=== PATIENT | male | born 1995 ===

== ENCOUNTER 2019-11-24 08:46 | Inpatient (IN) | payer OTHER ==
[2019-11-24] MEDS ORDERED: Boostrix 0.5 ML (Tdap) VIAL ONE (08:49)
[2019-11-24] MEDS ORDERED: Calcium Chloride 1 GM/10 ML Abboject SYRINGE ONE ×7 (08:54→18:21)
[2019-11-24] MEDS ORDERED: Sodium Bicarb 50 MEQ/50 ML Abboject 8.4% SYRINGE ONE ×3 (08:59→09:09)
[2019-11-24] MEDS ORDERED: EPINEPHrine 1 MG/10 ML Abboject SYRINGE ONE (09:09)
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
[2019-11-24 09:11] LABS: Hemoglobin 10.4 g/dL (14.0-18.0); Mean Corpuscular HGB CONC 32.9 g/dL (32.0-36.0); Mean Corpuscular Volume 94.3 fL (78.0-98.0); Mean Platelet Volume 7.1 fL (7.4-10.4); Platelet Count 227 thou/uL (130-400); RBC Distribution Width 11.8 % (11.5-14.5); Red Blood Cell (RBC) Count 3.34 mill/uL (4.70-6.10); White Blood Cell (WBC) Count 25.8 thou/uL (4.8-10.8)
[2019-11-24] MEDS ORDERED: Midazolam HCl 5 mg/5 ml Vial ONE (09:14)
[2019-11-24] MEDS ORDERED: Fentanyl 250 MCG/5 ML VIAL ONE (09:14)
[2019-11-24] MEDS ORDERED: Tranexamic Acid 1,000 MG/10 ML VIAL ONE (09:15)
[2019-11-24] MEDS ORDERED: Phenylephrine 10 MG/ML VIAL ONE ×2 (09:15→11:50)
[2019-11-24 09:18] LABS: INR-International Normal Ratio 1.8; Prothrombin Time 20.9 sec (12.0-14.7)
[2019-11-24] MEDS ORDERED: Heparin 10,000 UNITS/ 10 ML VIAL ONE ×2 (09:19→11:46)
[2019-11-24 09:21] LABS: ALT (SGPT) 375 U/L (8-55); AST (SGOT) 301 U/L (5-34); Albumin 2.9 g/dL (3.5-5.0); Alkaline Phosphatase 51 U/L (40-110); Anion Gap 16 mmol/L (10-20); BUN (Urea Nitrogen) 19 mg/dL (8.9-20.6); Bilirubin, Total 0.3 mg/dL (0.2-1.2); Calc. Creatinine Clearance 0 mL/min (70-130); Calcium 6.8 mg/dL (7.8-10.44); Carbon Dioxide 20 mmol/L (22-29); Chloride 108 mmol/L (98-107); Estimated GFR-MDRD 49; Globulin 1.6 g/dL (2.4-3.5); Glucose 255 mg/dL (70-105); Potassium 3.9 mmol/L (3.5-5.1); Protein, Total 4.5 g/dL (6.0-8.3); Sodium 140 mmol/L (136-145)
[2019-11-24 09:32] LABS: Band 25 % (5-11); Eosinophils 1 % (0-10); Lymphocytes 19 % (21-51); MDiff Complete? YES; Monocytes 3 % (0-10); Myelocyte 1 % (0-0); Neutrophil 51 % (42-75); Platelet Morphology Comment Appears Adequate; Polychromasia SLIGHT = 2-3 cells (100X) (0-2/hpf)
[2019-11-24 09:35] LABS: Actual Bicarbonate (HCO3a) 25.2 mEq/L (22-28); Analyzer IN Cardio ER; Base Excess (BEa) -5.2 mEq/L (-2.0 to +3.0); Calcium, Ionized (arterial) 1.18 mmol/L (1.12-1.30); Carboxyhemoglobin (COHb) 0.2 gm% (0.0-3.0); Potassium - ABG Lab 4.39 mmol/L (3.70-5.30)
[2019-11-24 09:36] LABS: CO2 Tension 79.6 mmHg (35.0-45.0); Puncture Site ALINE; pH, Arterial 7.12 (7.35-7.45)
[2019-11-24 09:37] LABS: CKMB 12.7 ng/mL (0-6.6)
--- NOTE | 2019-11-24 09:41 | RAD ---
FRONTAL RADIOGRAPH CHEST: Date: 11/24/2019 COMPARISON: None. HISTORY: Trauma. FINDINGS: Supine imaging is provided, limiting detailed assessment for pleural fluid and pneumothorax. There is a left lateral chest tube extending into the region of the left lung apex with a small apica l pneumothorax seen on the left. There is abnormal gas lucency overlying the neck on the right inferiorly suggesting subcutaneous gas. There is abnormal gas lucency overlying the right lung base which could signify loculated pneumothor ax, subcutaneous emphysema, and/or extensive soft tissue laceration. There is significant subcutaneou s gas within the right chest wall laterally. Small volume subcutaneous gas overlies the left chest wa ll. There is a right-sided chest tube in place, the side port overlying the margin of the hemithorax. The re is a second small caliber catheter overlying the midline right hemithorax laterally. There is exte nsive opacity within the right lung which is a nonspecific finding, likely on the basis of extensive contusion. Probable hydropneumothorax noted on the right. There is a displaced posterolateral right f ifth rib fracture. There is an endotracheal tube in place. IMPRESSION: Bilateral chest tubes with small apical pneumothorax on the left and probable hydropneumothorax on th e right. Extensive opacity of the right hemithorax which may signify extensive contusion or vascular injury. Subcutaneous gas, laceration, and/or loculated pneumothorax in right lung base. Chest CT advi sed. POS: ESTER
[2019-11-24] MEDS ORDERED: Tranexamic Acid 1,000 MG/10 ML VIAL IVP SCH (10:00)
[2019-11-24] MEDS ORDERED: Dextrose 5% in Water 1,000 ML IV PRN ×3 (10:05→10:21)
[2019-11-24] MEDS ORDERED: Dextrose 50% Abboject 50 ML SYRINGE SLOW IVP PRN ×3 (10:05→10:21)
[2019-11-24] MEDS ORDERED: Insulin Regular 300 UNITS/3 ML VIAL SC PRN (10:09)
[2019-11-24] MEDS ORDERED: Lactated Ringer's 1,000 ML IV SCH ×2 (10:15→21:00)
[2019-11-24] MEDS ORDERED: Sodium Bicarb 50 MEQ/50 ML VIAL ONE ×2 (10:44→12:14)
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
[2019-11-24 11:27] LABS: #Eosinphils 0.1 thou/uL (0.0-0.7); #Lymphocytes 1.4 thou/uL (1.20-3.40); #Monocytes 0.3 thou/uL (0.11-0.59); #Neutrophils 7.5 thou/uL (1.40-6.50); %Basophils 0.1 % (0.0-1.0); %Eosinophils 0.7 % (0.0-10.0); %Lymphocytes 15.2 % (21.0-51.0); %Monocytes 3.3 % (0.0-10.0); %Neutrophils 80.7 % (42.0-75.0); Hemoglobin 10.6 g/dL (14.0-18.0); Mean Corpuscular HGB CONC 33.1 g/dL (32.0-36.0); Mean Corpuscular Hemoglobin 30.9 pg (27.0-31.0); Mean Corpuscular Volume 93.4 fL (78.0-98.0); Mean Platelet Volume 6.8 fL (7.4-10.4); Platelet Count 81 thou/uL (130-400); RBC Distribution Width 13.1 % (11.5-14.5); Red Blood Cell (RBC) Count 3.42 mill/uL (4.70-6.10); White Blood Cell (WBC) Count 9.3 thou/uL (4.8-10.8)
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
[2019-11-24 11:31] LABS: INR-International Normal Ratio 1.3; Prothrombin Time 16.2 sec (12.0-14.7)
[2019-11-24] MEDS ORDERED: Heparin 1,000 UNITS/ML VIAL ONE (11:31)
[2019-11-24 11:32] LABS: PTT 40.1 sec (22.9-36.1)
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
[2019-11-24] MEDS ORDERED: Neomycin-Polymyxin 1 ML AMP ONE ×2 (12:41→13:48)
[2019-11-24] MEDS ORDERED: Rocuronium Bromide 50 MG/5 ML VIAL ONE (13:13)
[2019-11-24] MEDS ORDERED: Vecuronium 10 MG VIAL ONE ×3 (13:19→15:29)
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
[2019-11-24] MEDS ORDERED: EPHEDRINE 25 MG/5 ML SYRINGE ONE (14:05)
[2019-11-24] MEDS ORDERED: PHENYLEPHRINE-NS 100 MCG/ML 10 ML SYRINGE ONE (14:05)
--- NOTE | 2019-11-24 14:39 | RAD ---
EXAM: XR Femur Rt 2 View STANDARD DATE: 11/24/2019 1:10 PM INDICATION: External fixator placement of the right femur COMPARISON: Prior exam dated 11/24/2019 10:22 AM FINDING: Provided images demonstrate external fixer pin placement involving the shaft of the right f emur. Fracture alignment is near anatomic. Total fluoroscopic time was 12 seconds. 2 total fluoroscopic spot images were submitted of the right femur IMPRESSION:External fixer placement of fixating the patient's midshaft right femur fracture
[2019-11-24] MEDS ORDERED: Albumin 5% 250 ML ONE ×2 (15:01→21:36)
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
[2019-11-24 15:26] LABS: Actual Bicarbonate (HCO3a) 27.4 mEq/L (22-28); Analyzer IN Cardio ER; Base Excess (BEa) -1.9 mEq/L (-2.0 to +3.0); Calcium, Ionized (arterial) 1.24 mmol/L (1.12-1.30); Carboxyhemoglobin (COHb) 0.2 gm% (0.0-3.0); Hemoglobin (Hb) 12.2 g/dL (14.0-18.0); Potassium - ABG Lab 3.57 mmol/L (3.70-5.30)
[2019-11-24 15:27] LABS: CO2 Tension 71.1 mmHg (35.0-45.0); O2 Tension (PaO2), arterial 35.8 mmHg (80.0-100.0)
[2019-11-24 15:28] LABS: ALV-art Gradient 588.325 mmHg (0-20); Puncture Site FEMORAL
[2019-11-24] MEDS ORDERED: Fentanyl 100 MCG/2 ML VIAL ONE (15:28)
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
[2019-11-24 15:41] LABS: #Lymphocytes 1.2 thou/uL (1.20-3.40); #Monocytes 0.5 thou/uL (0.11-0.59); #Neutrophils 3.4 thou/uL (1.40-6.50); %Basophils 0.3 % (0.0-1.0); %Eosinophils 0.7 % (0.0-10.0); %Lymphocytes 22.8 % (21.0-51.0); %Monocytes 10.6 % (0.0-10.0); %Neutrophils 65.6 % (42.0-75.0); Hemoglobin 10.2 g/dL (14.0-18.0); Mean Corpuscular HGB CONC 34.7 g/dL (32.0-36.0); Mean Corpuscular Hemoglobin 31.3 pg (27.0-31.0); Mean Corpuscular Volume 90.4 fL (78.0-98.0); Mean Platelet Volume 7.9 fL (7.4-10.4); Platelet Count 93 thou/uL (130-400); RBC Distribution Width 13.3 % (11.5-14.5); Red Blood Cell (RBC) Count 3.24 mill/uL (4.70-6.10); White Blood Cell (WBC) Count 5.1 thou/uL (4.8-10.8)
[2019-11-24 15:43] LABS: INR-International Normal Ratio 1.5; PTT 33.2 sec (22.9-36.1); Prothrombin Time 17.6 sec (12.0-14.7)
[2019-11-24] MEDS ORDERED: Fentanyl 100 MCG/2 ML VIAL SLOW IVP SCH (15:45)
[2019-11-24] MEDS ORDERED: Vecuronium 10 MG VIAL IV SCH (15:45)
[2019-11-24] MEDS ORDERED: Fentanyl BOLUS 250 ML IVPB PRN (15:45)
[2019-11-24] MEDS ORDERED: DISCONTINUE PREVIOUS NARCOTIC PAIN MEDICATIONS AND BENZODIAZEPINES FS SCH (15:45)
[2019-11-24] MEDS ORDERED: Propofol 1,000 MG/100 ML VIAL IV PRN (15:45)
[2019-11-24] MEDS ORDERED: Propofol BOLUS 1,000 MG/100 ML VIAL IV PRN (15:45)
[2019-11-24] MEDS ORDERED: Morphine 2 MG/ML VIAL SLOW IVP PRN (15:45)
[2019-11-24 16:06] LABS: Anion Gap 16 mmol/L (10-20); BUN (Urea Nitrogen) 18 mg/dL (8.9-20.6); Calc. Creatinine Clearance 0 mL/min (70-130); Calcium 8.3 mg/dL (7.8-10.44); Carbon Dioxide 25 mmol/L (22-29); Chloride 109 mmol/L (98-107); Estimated GFR-MDRD 63; Glucose 121 mg/dL (70-105); Lactic Acid 6.2 mmol/L (0.5-2.2); Magnesium 1.6 mg/dL (1.6-2.6); Phosphorus 5.9 mg/dL (2.3-4.7); Potassium 3.4 mmol/L (3.5-5.1); Sodium 147 mmol/L (136-145)
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
[2019-11-24 16:36] LABS: Actual Bicarbonate (HCO3a) 25.8 mEq/L (22-28); Base Excess (BEa) -2.5 mEq/L (-2.0 to +3.0); Calcium, Ionized (arterial) 1.19 mmol/L (1.12-1.30); Carboxyhemoglobin (COHb) 0.7 gm% (0.0-3.0); Hemoglobin (Hb) 11.3 g/dL (14.0-18.0); Potassium - ABG Lab 3.92 mmol/L (3.70-5.30)
[2019-11-24 16:46] LABS: CO2 Tension 62.9 mmHg (35.0-45.0); O2 Tension (PaO2), arterial 53.3 mmHg (80.0-100.0); pH, Arterial 7.23 (7.35-7.45)
[2019-11-24 16:48] LABS: Puncture Site ALINE
[2019-11-24 16:49] LABS: ALV-art Gradient 581.075 mmHg (0-20)
[2019-11-24] MEDS ORDERED: ceFAZolin 1 GM/D5W 1 GM in Premix Bag 1 BAG IVPB SCH (17:00)
[2019-11-24] MEDS ORDERED: Hydrocortisone Sod Succ/PF 100 mg/2 ml Vial IVP PRN (17:06)
[2019-11-24] MEDS ORDERED: Midazolam HCl 2 mg/2 ml Vial ONE (17:16)
[2019-11-24] MEDS ORDERED: CEFAZOLIN 2 GM in Premix Bag 1 BAG IVPB SCH (17:30)
[2019-11-24 17:32] LABS: Actual Bicarbonate (HCO3a) 26.3 mEq/L (22-28); Base Excess (BEa) -2.3 mEq/L (-2.0 to +3.0); Carboxyhemoglobin (COHb) 0.5 gm% (0.0-3.0); Hemoglobin (Hb) 11.3 g/dL (14.0-18.0); Potassium - ABG Lab 3.77 mmol/L (3.70-5.30)
[2019-11-24 17:38] LABS: CO2 Tension 65.8 mmHg (35.0-45.0); O2 Tension (PaO2), arterial 49.9 mmHg (80.0-100.0); pH, Arterial 7.22 (7.35-7.45)
[2019-11-24 17:39] LABS: Puncture Site ALINE
[2019-11-24] MEDS ORDERED: Midazolam HCl 2 mg/2 ml Vial SLOW IVP SCH (17:45)
[2019-11-24] MEDS: fentaNYL Citrate/PF 2,000 MCG in Sodium Chloride 0.9% 60 ML IV SCH (17:45)
[2019-11-24 18:24] LABS: Hemoglobin 11.3 g/dL (14.0-18.0)
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
[2019-11-24 18:42] LABS: Anion Gap 17 mmol/L (10-20); BUN (Urea Nitrogen) 19 mg/dL (8.9-20.6); Calc. Creatinine Clearance 0 mL/min (70-130); Calcium 8.1 mg/dL (7.8-10.44); Carbon Dioxide 26 mmol/L (22-29); Chloride 108 mmol/L (98-107); Estimated GFR-MDRD 55; Glucose 123 mg/dL (70-105); Sodium 147 mmol/L (136-145)
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
[2019-11-24 19:54] LABS: Actual Bicarbonate (HCO3a) 30.1 mEq/L (22-28); Base Excess (BEa) -0.8 mEq/L (-2.0 to +3.0); Calcium, Ionized (arterial) 1.24 mmol/L (1.12-1.30); Carboxyhemoglobin (COHb) 0.1 gm% (0.0-3.0); Hemoglobin (Hb) 11.9 g/dL (14.0-18.0); Potassium - ABG Lab 4.67 mmol/L (3.70-5.30)
[2019-11-24 19:56] LABS: pH, Arterial 7.15 (7.35-7.45)
[2019-11-24 19:57] LABS: CO2 Tension 89.1 mmHg (35.0-45.0); O2 Tension (PaO2), arterial 47.8 mmHg (80.0-100.0)
[2019-11-24 19:58] LABS: ALV-art Gradient 553.825 mmHg (0-20); Puncture Site LINE
--- NOTE | 2019-11-24 20:00 | RAD ---
RADIOGRAPH CHEST 1 VIEW: DATE: 11/24/2019 TIME: 7:37 PM HISTORY: 24-year-old male status post acute chest trauma. Worsening hypoxemia. COMPARISON: 11/24/2019 3:49 PM FINDINGS: Again noted are the severe diffuse bilateral alveolar airspace infiltrates. These have become more de nse in regions of consolidation in the bilateral lower lung zones and left mid lung zone. Small right apical pneumothorax approximately 10-20% volume. Probably unchanged. Bilateral chest tubes, endotracheal tube, esophagogastric tube, right subclavian central venous checo ter overlying SVC, and left subclavian dialysis catheter transversely oriented distal tip overlying midline. These are unchanged. IMPRESSION: 1) interval worsening of severe bilateral airspace disease, with regions of increasing attenuation in bilateral lower lung zone consolidations. 2) right apical pneumothorax, probably stable. 3) no interval change in life support lines
[2019-11-24] MEDS ORDERED: Norepinephrine 8 MG/0.9% NS 250 ML ONE (20:02)
[2019-11-24] MEDS ORDERED: Hydrocortisone Sod Succ/PF 100 mg/2 ml Vial IVP SCH (20:15)
[2019-11-24 20:24] LABS: Hemoglobin 12.1 g/dL (14.0-18.0)
[2019-11-24 20:30] LABS: INR-International Normal Ratio 1.3; PTT 29.8 sec (22.9-36.1); Prothrombin Time 15.8 sec (12.0-14.7)
[2019-11-24 20:44] LABS: Lactic Acid 5.8 mmol/L (0.5-2.2)
[2019-11-24 20:46] LABS: Magnesium 1.4 mg/dL (1.6-2.6)
[2019-11-24] MEDS ORDERED: Furosemide 40 MG/4 ML VIAL ONE (20:59)
[2019-11-24] MEDS ORDERED: Magnesium 5 GM/10 ML Abboject SYRINGE ONE (21:09)
[2019-11-24] MEDS ORDERED: Magnesium 2 GM/50 ML 4 GM in Premix Bag 1 BAG IVPB SCH (21:15)
[2019-11-24] MEDS ORDERED: methylPREDNISolone Sod Succ/PF 125 MG/2 ML VIAL IVP SCH (21:15)
[2019-11-24] MEDS ORDERED: Albumin 25% 25 GM/100 ML BOT IVPB SCH (21:37)
--- NOTE | 2019-11-24 21:47 | CT ---
CT BRAIN NONCONTRAST: DATE: 11/24/2019 9:29 PM HISTORY: 24-year-old female with acute epidural hematoma. Follow-up. COMPARISON: 11/24/2019 3:07 PM FINDINGS: The thin broad biconvex left lateral frontotemporal extra-axial hematoma has not significantly change d in size. It causes mild mass effect upon the left cerebral hemisphere. This hematoma crosses the left coronal suture, and therefore is consistent with a subdural hematoma rather than an epidural hem atoma. The mild, approximately 2 to 3 mm left to right midline shift of the septum pellucidum is unchanged. The small focal hyperdensity at the anterior corner of the third ventricle, near the foramen of Monro , is probably a colloid cyst rather than hemorrhage. Otherwise, the ventricles are normal in size and configuration. Visualized paranasal sinuses and bilateral tympanomastoid cavities remain clear. T here are right upper scalp skin favio. There is upper scalp edema or contusion. No major interval change overall. IMPRESSION: The small left lateral frontotemporal subdural hematoma has not increased in size.
[2019-11-24 22:12] LABS: Actual Bicarbonate (HCO3a) 27.9 mEq/L (22-28); Base Excess (BEa) -4.3 mEq/L (-2.0 to +3.0); Carboxyhemoglobin (COHb) 0.9 gm% (0.0-3.0); Hemoglobin (Hb) 13.1 g/dL (14.0-18.0); Potassium - ABG Lab 4.97 mmol/L (3.70-5.30)
[2019-11-24 22:22] LABS: pH, Arterial 7.08 (7.35-7.45)
[2019-11-24 22:23] LABS: CO2 Tension 95.8 mmHg (35.0-45.0); O2 Tension (PaO2), arterial 35.8 mmHg (80.0-100.0); Puncture Site LINE
[2019-11-24] MEDS: Vasopressin 20 UNIT, Admixture Fee 1 EACH in Sodium Chloride 0.9% 50 ML IV SCH (22:23)
--- NOTE | 2019-11-24 22:30 | OP ---
DATE OF PROCEDURE: 11/24/2019 Procedure was performed approximately at 0930 hours this morning. PROCEDURE PERFORMED: Arterial catheterization. INDICATION: Hemorrhagic shock, invasive blood pressure monitoring, and frequent blood gases. Consent is implied. EMERGENT CONDITION: Implied Consent. PROCEDURE: Hand hygiene was completed. Sterile gloves were donned. The left femoral artery was palpated. This area was prepped in the usual fashion with 4% chlorhexidine, allowed to completely dry. Next, introducer needle was placed into the left femoral artery with one attempt. Guidewire was placed through the needle. The needle was then removed and a 12 cm 20-gauge single-lumen catheter was placed over the guidewire into the left femoral artery. The guidewire was then removed from the body. Pulsatile blood was noted. This was connected to the transducer wire and confirmed placement by arterial waveform and transduction. This was sutured in place x2 and a Tegaderm was placed over the site. TOTAL BLOOD LOSS: Less than 2 mL. Patient tolerated the procedure well. No immediate complications. Job ID: [id number] [facility]
[2019-11-24] MEDS: methylPREDNISolone Sod Succ 40 MG VIAL IVP SCH (22:31)
[2019-11-24 22:46] LABS: Actual Bicarbonate (HCO3a) 27.7 mEq/L (22-28); Base Excess (BEa) -3.4 mEq/L (-2.0 to +3.0); Calcium, Ionized (arterial) 1.18 mmol/L (1.12-1.30); Carboxyhemoglobin (COHb) 0.7 gm% (0.0-3.0); Hemoglobin (Hb) 13.1 g/dL (14.0-18.0); Potassium - ABG Lab 4.89 mmol/L (3.70-5.30)
[2019-11-24 22:54] LABS: CO2 Tension 85.3 mmHg (35.0-45.0); pH, Arterial 7.13 (7.35-7.45)
[2019-11-24 22:55] LABS: O2 Tension (PaO2), arterial 34.7 mmHg (80.0-100.0); Puncture Site LINE
[2019-11-24 22:57] LABS: ALV-art Gradient 571.675 mmHg (0-20)
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
[2019-11-25 00:22] LABS: Actual Bicarbonate (HCO3a) 24.7 mEq/L (22-28); Base Excess (BEa) -4.5 mEq/L (-2.0 to +3.0); Calcium, Ionized (arterial) 1.13 mmol/L (1.12-1.30); Carboxyhemoglobin (COHb) 0.8 gm% (0.0-3.0); Hemoglobin (Hb) 13.2 g/dL (14.0-18.0)
[2019-11-25 00:24] LABS: CO2 Tension 65.6 mmHg (35.0-45.0); pH, Arterial 7.19 (7.35-7.45)
[2019-11-25 00:25] LABS: O2 Tension (PaO2), arterial 31.9 mmHg (80.0-100.0); Puncture Site LINE
[2019-11-25] MEDS ORDERED: CEFAZOLIN 2 GM in Premix Bag 1 BAG IVPB SCH (01:00)
[2019-11-25] MEDS ORDERED: Hydrocortisone Sod Succ/PF 100 mg/2 ml Vial IVP SCH (02:00)
[2019-11-25] MEDS ORDERED: Lactated Ringer's 1,000 ML IV SCH (03:15)
[2019-11-25] MEDS: methylPREDNISolone Sod Succ 40 MG VIAL IVP SCH ×4 (04:09→22:13)
[2019-11-25] MEDS: Acetaminophen 650 MG Suppository PR PRN (04:12)
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
[2019-11-25 05:32] LABS: INR-International Normal Ratio 1.3; Prothrombin Time 16.6 sec (12.0-14.7)
[2019-11-25 05:40] LABS: Phosphorus 4.8 mg/dL (2.3-4.7)
[2019-11-25 05:41] LABS: Band 36 % (5-11); Hemoglobin 13.1 g/dL (14.0-18.0); Lymphocytes 6 % (21-51); MDiff Complete? YES; Mean Corpuscular HGB CONC 34.6 g/dL (32.0-36.0); Mean Corpuscular Hemoglobin 30.9 pg (27.0-31.0); Mean Corpuscular Volume 89.2 fL (78.0-98.0); Mean Platelet Volume 9.2 fL (7.4-10.4); Monocytes 7 % (0-10); Neutrophil 51 % (42-75); Platelet Count 87 thou/uL (130-400); Platelet Morphology Comment Appears Decreased; RBC Distribution Width 14.3 % (11.5-14.5); Red Blood Cell (RBC) Count 4.24 mill/uL (4.70-6.10); White Blood Cell (WBC) Count 14.7 thou/uL (4.8-10.8)
[2019-11-25 05:45] LABS: ALT (SGPT) 159 U/L (8-55); AST (SGOT) 279 U/L (5-34); Albumin 3.6 g/dL (3.5-5.0); Alkaline Phosphatase 41 U/L (40-110); Anion Gap 18 mmol/L (10-20); BUN (Urea Nitrogen) 27 mg/dL (8.9-20.6); Bilirubin, Total 0.4 mg/dL (0.2-1.2); Calc. Creatinine Clearance 0 mL/min (70-130); Calcium 8.2 mg/dL (7.8-10.44); Carbon Dioxide 27 mmol/L (22-29); Chloride 108 mmol/L (98-107); Estimated GFR-MDRD 40; Globulin 1.9 g/dL (2.4-3.5); Glucose 135 mg/dL (70-105); Magnesium 2.3 mg/dL (1.6-2.6); Potassium 5.6 mmol/L (3.5-5.1); Protein, Total 5.5 g/dL (6.0-8.3); Sodium 147 mmol/L (136-145)
[2019-11-25 06:12] LABS: CK (CPK) 10244 U/L (30-200)
[2019-11-25] MEDS: Norepinephrine 8 MG/0.9% NS 250 ML IVPB SCH ×2 (06:12→18:13)
[2019-11-25] MEDS: Vasopressin 20 UNIT, Admixture Fee 1 EACH in Sodium Chloride 0.9% 50 ML IV SCH ×3 (06:12→22:10)
[2019-11-25] MEDS: Piperacillin/Tazobactam 3.375 GM in Sodium Chloride 0.9% 100 ML IVPB SCH ×4 (07:21→23:18)
[2019-11-25 07:27] LABS: Actual Bicarbonate (HCO3a) 26.4 mEq/L (22-28); Base Excess (BEa) -1.4 mEq/L (-2.0 to +3.0); CO2 Tension 57.9 mmHg (35.0-45.0); Calcium, Ionized (arterial) 1.07 mmol/L (1.12-1.30); Carboxyhemoglobin (COHb) 0.1 gm% (0.0-3.0); Hemoglobin (Hb) 13.6 g/dL (14.0-18.0); Potassium - ABG Lab 5.53 mmol/L (3.70-5.30); pH, Arterial 7.28 (7.35-7.45)
[2019-11-25] MEDS ORDERED: Albumin 5% 250 ML ONE (07:41)
[2019-11-25] MEDS ORDERED: Albumin 5% 500 ML ONE (07:41)
[2019-11-25] MEDS ORDERED: Albumin 5% 0 ML ONE (07:41)
[2019-11-25 07:48] LABS: O2 Tension (PaO2), arterial 42.9 mmHg (80.0-100.0); Puncture Site ALINE
[2019-11-25 07:49] LABS: ALV-art Gradient 597.725 mmHg (0-20)
[2019-11-25] MEDS ORDERED: Calcium Chloride 1 GM/10 ML Abboject SYRINGE ONE (07:58)
[2019-11-25 08:06] LABS: Actual Bicarbonate (HCO3a) 25.3 mEq/L (22-28); Base Excess (BEa) -2.6 mEq/L (-2.0 to +3.0); CO2 Tension 57.6 mmHg (35.0-45.0); Calcium, Ionized (arterial) 1.19 mmol/L (1.12-1.30); Carboxyhemoglobin (COHb) 0.2 gm% (0.0-3.0); Hemoglobin (Hb) 13.1 g/dL (14.0-18.0); pH, Arterial 7.26 (7.35-7.45)
[2019-11-25 08:09] LABS: O2 Tension (PaO2), arterial 54.9 mmHg (80.0-100.0); Puncture Site ALINE
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
[2019-11-25] MEDS ORDERED: Sodium Chloride 0.9% 500 ML IV SCH (08:45)
[2019-11-25] MEDS ORDERED: Vecuronium 10 MG VIAL IV SCH (09:00)
[2019-11-25] MEDS: fentaNYL Citrate/PF 2,000 MCG in Sodium Chloride 0.9% 60 ML IV SCH (09:02)
[2019-11-25] MEDS: Dextrose 5 %-0.45 % NaCl 1,000 ML IV SCH ×3 (09:13→18:12)
[2019-11-25 09:28] LABS: Bilirubin Negative (Negative); Blood, Urine 3+ (Negative); Clarity Extra Turbid (Clear); Glucose, Urine (Dipstick) Normal (Negative); Ketone, Urine Trace mg/dL (Negative); Leukocyte 25 Leu/uL (Negative); Nitrite Negative (Negative); Protein, Urine (Dipstick) 50 mg/dL (Neg-Trace); RBC/HPF 0-3 HPF (0-3); Specific Gravity, Urine 1.026 (1.002-1.036); Squamous Epithelial None Seen HPF (0-3); Urobilinogen Normal mg/dL (Less than 2); pH, Urine 5.5 (5.0-9.0)
[2019-11-25 09:29] LABS: Bacteria/HPF 1+ HPF (None Seen)
[2019-11-25] MEDS: Famotidine/PF 20 mg/2ml Vial SLOW IVP SCH (10:06)
[2019-11-25] MEDS ORDERED: Sodium Chloride 0.9% 1,000 ML IV SCH (10:15)
--- NOTE | 2019-11-25 10:17 | RAD ---
CHEST 1 VIEW: Date: 11/25/2019 INDICATION: History of chest tube placement. COMPARISON: Prior exam dated 11/24/2019 at 1937 hours. FINDINGS/IMPRESSION: Right-sided pneumothorax is less prominent. Basilar and right apical component remain. Small left api taz pneumothorax persists. Diffuse air space disease in both lungs is similar appearing. Patient zulema ins intubated with gastric catheter placement, right subclavian central venous catheter placement, an d bilateral thoracostomy tubes. POS: BH
[2019-11-25 10:44] LABS: Lactic Acid 5.5 mmol/L (0.5-2.2)
[2019-11-25 10:47] LABS: Anion Gap 14 mmol/L (10-20); BUN (Urea Nitrogen) 28 mg/dL (8.9-20.6); Calc. Creatinine Clearance 80 mL/min (70-130); Carbon Dioxide 28 mmol/L (22-29); Chloride 110 mmol/L (98-107); Estimated GFR-MDRD 45; Glucose 193 mg/dL (70-105); Magnesium 2.1 mg/dL (1.6-2.6); Phosphorus 4.8 mg/dL (2.3-4.7); Potassium 5.6 mmol/L (3.5-5.1); Sodium 146 mmol/L (136-145)
[2019-11-25 11:13] LABS: CK (CPK) 10807 U/L (30-200)
[2019-11-25] MEDS: Vecuronium Bromide 50 MG in Sodium Chloride 0.9% 250 ML 250 ML IV SCH ×2 (11:27→22:10)
[2019-11-25 11:51] LABS: Actual Bicarbonate (HCO3a) 25.2 mEq/L (22-28); Base Excess (BEa) -2.9 mEq/L (-2.0 to +3.0); CO2 Tension 59.6 mmHg (35.0-45.0); Carboxyhemoglobin (COHb) 0.3 gm% (0.0-3.0); Hemoglobin (Hb) 12.2 g/dL (14.0-18.0); Potassium - ABG Lab 5.41 mmol/L (3.70-5.30)
[2019-11-25 11:54] LABS: O2 Tension (PaO2), arterial 55.4 mmHg (80.0-100.0)
[2019-11-25 11:55] LABS: Puncture Site ALINE; pH, Arterial 7.24 (7.35-7.45)
[2019-11-25] MEDS: HUMULIN R 100 UNITS in Sodium Chloride 0.9% 100 ML IVPB SCH (12:26)
[2019-11-25] MEDS ORDERED: Calcium Chloride 1 GM/10 ML Abboject SYRINGE IVP SCH (13:45)
[2019-11-25 14:28] LABS: Anion Gap 15 mmol/L (10-20); BUN (Urea Nitrogen) 26 mg/dL (8.9-20.6); Calc. Creatinine Clearance 94 mL/min (70-130); Calcium 7.6 mg/dL (7.8-10.44); Carbon Dioxide 26 mmol/L (22-29); Chloride 108 mmol/L (98-107); Estimated GFR-MDRD 54; Glucose 242 mg/dL (70-105); Magnesium 1.9 mg/dL (1.6-2.6); Phosphorus 3.9 mg/dL (2.3-4.7); Potassium 5.5 mmol/L (3.5-5.1); Sodium 143 mmol/L (136-145)
[2019-11-25 14:29] LABS: Lactic Acid 4.9 mmol/L (0.5-2.2)
[2019-11-25 14:53] LABS: CK (CPK) 11558 U/L (30-200)
[2019-11-25] MEDS ORDERED: Magnesium 2 GM/50 ML 2 GM in Premix Bag 1 BAG IVPB SCH (15:00)
[2019-11-25 16:09] LABS: Actual Bicarbonate (HCO3a) 28.2 mEq/L (22-28); Base Excess (BEa) 0.4 mEq/L (-2.0 to +3.0); Calcium, Ionized (arterial) 1.16 mmol/L (1.12-1.30); Carboxyhemoglobin (COHb) 0.3 gm% (0.0-3.0); Hemoglobin (Hb) 11.8 g/dL (14.0-18.0); Potassium - ABG Lab 4.82 mmol/L (3.70-5.30); pH, Arterial 7.29 (7.35-7.45)
[2019-11-25 16:15] LABS: CO2 Tension 60.6 mmHg (35.0-45.0); O2 Tension (PaO2), arterial 57.3 mmHg (80.0-100.0); Puncture Site ALINE
[2019-11-25 18:22] LABS: Lactic Acid 3.5 mmol/L (0.5-2.2)
[2019-11-25 18:26] LABS: Anion Gap 10 mmol/L (10-20); BUN (Urea Nitrogen) 23 mg/dL (8.9-20.6); Calc. Creatinine Clearance 107 mL/min (70-130); Calcium 8.1 mg/dL (7.8-10.44); Carbon Dioxide 30 mmol/L (22-29); Chloride 109 mmol/L (98-107); Estimated GFR-MDRD 63; Glucose 182 mg/dL (70-105); Magnesium 2.5 mg/dL (1.6-2.6); Phosphorus 3.4 mg/dL (2.3-4.7); Potassium 4.8 mmol/L (3.5-5.1); Sodium 144 mmol/L (136-145)
[2019-11-25 18:53] LABS: CK (CPK) 10985 U/L (30-200)
[2019-11-25 19:54] LABS: Base Excess (BEa) 2.8 mEq/L (-2.0 to +3.0); CO2 Tension 59.6 mmHg (35.0-45.0); Calcium, Ionized (arterial) 1.15 mmol/L (1.12-1.30); Carboxyhemoglobin (COHb) 0.2 gm% (0.0-3.0); Hemoglobin (Hb) 11.2 g/dL (14.0-18.0); O2 Tension (PaO2), arterial 61.3 mmHg (80.0-100.0); Potassium - ABG Lab 4.79 mmol/L (3.70-5.30); pH, Arterial 7.32 (7.35-7.45)
[2019-11-25 19:55] LABS: Puncture Site LINE
[2019-11-25] MEDS: Senokot S 8.6-50 MG TAB PO SCH (22:13)
[2019-11-25] MEDS: Sodium Chloride 0.9% 1,000 ML IV SCH (22:13)
[2019-11-25 22:31] LABS: Lactic Acid 2.5 mmol/L (0.5-2.2)
[2019-11-25 22:42] LABS: Anion Gap 11 mmol/L (10-20); BUN (Urea Nitrogen) 22 mg/dL (8.9-20.6); Calc. Creatinine Clearance 120 mL/min (70-130); Calcium 7.9 mg/dL (7.8-10.44); Carbon Dioxide 28 mmol/L (22-29); Chloride 109 mmol/L (98-107); Estimated GFR-MDRD 72; Glucose 149 mg/dL (70-105); Magnesium 2.2 mg/dL (1.6-2.6); Phosphorus 2.6 mg/dL (2.3-4.7); Potassium 4.6 mmol/L (3.5-5.1); Sodium 143 mmol/L (136-145)
[2019-11-25 23:01] LABS: CK (CPK) 10297 U/L (30-200)
[2019-11-25] MEDS ORDERED: Sodium Phosphate 15 MMOL in Sodium Chloride 0.9% 250 ML 250 ML IVPB SCH (23:15)
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
[2019-11-26 03:05] LABS: Band 30 % (5-11); Lymphocytes 15 % (21-51); MDiff Complete? YES; Mean Corpuscular HGB CONC 35.1 g/dL (32.0-36.0); Mean Corpuscular Hemoglobin 32.2 pg (27.0-31.0); Mean Corpuscular Volume 91.7 fL (78.0-98.0); Mean Platelet Volume 8.9 fL (7.4-10.4); Monocytes 5 % (0-10); Neutrophil 50 % (42-75); Platelet Count 56 thou/uL (130-400); Platelet Morphology Comment Appears Decreased; RBC Distribution Width 13.8 % (11.5-14.5); White Blood Cell (WBC) Count 9.1 thou/uL (4.8-10.8)
[2019-11-26] MEDS: HUMULIN R 100 UNITS in Sodium Chloride 0.9% 100 ML IVPB SCH (03:07)
[2019-11-26] MEDS: methylPREDNISolone Sod Succ 40 MG VIAL IVP SCH ×4 (03:07→22:22)
[2019-11-26 03:10] LABS: ALT (SGPT) 124 U/L (8-55); AST (SGOT) 240 U/L (5-34); Albumin 2.9 g/dL (3.5-5.0); Alkaline Phosphatase 36 U/L (40-110); Anion Gap 8 mmol/L (10-20); BUN (Urea Nitrogen) 23 mg/dL (8.9-20.6); Bilirubin, Total 0.6 mg/dL (0.2-1.2); Calc. Creatinine Clearance 131 mL/min (70-130); Calcium 7.8 mg/dL (7.8-10.44); Carbon Dioxide 29 mmol/L (22-29); Chloride 111 mmol/L (98-107); Estimated GFR-MDRD 80; Globulin 1.7 g/dL (2.4-3.5); Glucose 114 mg/dL (70-105); Magnesium 2.2 mg/dL (1.6-2.6); Potassium 4.4 mmol/L (3.5-5.1); Protein, Total 4.6 g/dL (6.0-8.3); Sodium 144 mmol/L (136-145)
[2019-11-26 03:38] LABS: CK (CPK) 9439 U/L (30-200)
[2019-11-26] MEDS ORDERED: Sodium Chloride 0.9% 500 ML IV SCH (04:30)
[2019-11-26] MEDS: Dextrose 5 %-0.45 % NaCl 1,000 ML IV SCH ×2 (04:53→11:34)
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
[2019-11-26] MEDS: Piperacillin/Tazobactam 3.375 GM in Sodium Chloride 0.9% 100 ML IVPB SCH ×4 (06:10→23:45)
[2019-11-26] MEDS: Sodium Chloride 0.9% 1,000 ML IV SCH (06:14)
[2019-11-26] MEDS ORDERED: Furosemide 40 MG/4 ML VIAL ONE (06:35)
[2019-11-26 06:42] LABS: Actual Bicarbonate (HCO3a) 27.2 mEq/L (22-28); Base Excess (BEa) 1.8 mEq/L (-2.0 to +3.0); CO2 Tension 45.8 mmHg (35.0-45.0); Carboxyhemoglobin (COHb) 0.3 gm% (0.0-3.0); Hemoglobin (Hb) 12.1 g/dL (14.0-18.0); O2 Tension (PaO2), arterial 63.2 mmHg (80.0-100.0); Potassium - ABG Lab 4.22 mmol/L (3.70-5.30); pH, Arterial 7.39 (7.35-7.45)
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
[2019-11-26 07:12] LABS: Puncture Site ALINE
[2019-11-26 07:19] LABS: Lactic Acid 1.9 mmol/L (0.5-2.2)
[2019-11-26 07:24] LABS: Anion Gap 11 mmol/L (10-20); BUN (Urea Nitrogen) 24 mg/dL (8.9-20.6); Calc. Creatinine Clearance 134 mL/min (70-130); Calcium 7.7 mg/dL (7.8-10.44); Carbon Dioxide 27 mmol/L (22-29); Chloride 110 mmol/L (98-107); Estimated GFR-MDRD 81; Glucose 131 mg/dL (70-105); Phosphorus 2.7 mg/dL (2.3-4.7); Potassium 4.4 mmol/L (3.5-5.1); Sodium 144 mmol/L (136-145)
[2019-11-26] MEDS ORDERED: Furosemide 40 MG/4 ML VIAL SLOW IVP SCH (07:45)
[2019-11-26 07:51] LABS: CK (CPK) 9105 U/L (30-200)
[2019-11-26] MEDS: fentaNYL Citrate/PF 2,000 MCG in Sodium Chloride 0.9% 60 ML IV SCH (07:58)
[2019-11-26] MEDS ORDERED: Calcium Chloride 1 GM/10 ML Abboject SYRINGE IVP SCH ×2 (08:00→13:45)
[2019-11-26] MEDS: Vecuronium Bromide 50 MG in Sodium Chloride 0.9% 250 ML 250 ML IV SCH ×3 (08:12→22:23)
[2019-11-26] MEDS: Senokot S 8.6-50 MG TAB PO SCH ×2 (08:56→22:22)
[2019-11-26] MEDS: Polyethylene Glycol 3350 17 GM Packet PO SCH (08:56)
[2019-11-26] MEDS: Famotidine/PF 20 mg/2ml Vial SLOW IVP SCH (08:56)
--- NOTE | 2019-11-26 09:01 | RAD ---
CHEST ONE VIEW: INDICATIONS: History of chest tube placement. COMPARISON: Prior exam dated 11/25/2019. FINDINGS: Right-sided thoracostomy tube is unchanged. Right-sided pneumothorax is stable. Left-sided thoracosto my tube is unchanged. No definite residual left-sided pneumothorax is evident. Bilateral air space di sease is slightly improved, suspicious for contusions. The patient remains intubated with gastric cat heter placement. Right subclavian central venous catheter is unchanged. Osseous structures are simila r appearing, including a prominent right-sided clavicle fracture. The right-sided rib fractures are s table. IMPRESSION: 1. Stable small right apical pneumothorax. 2. Improving bilateral contusions. 3. Tubes and lines appear stable. POS: BH
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
[2019-11-26 11:14] LABS: Actual Bicarbonate (HCO3a) 29.6 mEq/L (22-28); Base Excess (BEa) 4.1 mEq/L (-2.0 to +3.0); CO2 Tension 48.5 mmHg (35.0-45.0); Calcium, Ionized (arterial) 1.16 mmol/L (1.12-1.30); Carboxyhemoglobin (COHb) 0.3 gm% (0.0-3.0); Hemoglobin (Hb) 10.3 g/dL (14.0-18.0); O2 Tension (PaO2), arterial 70.3 mmHg (80.0-100.0); Potassium - ABG Lab 4.32 mmol/L (3.70-5.30)
[2019-11-26 11:17] LABS: ALV-art Gradient 582.075 mmHg (0-20); Puncture Site ALINE
[2019-11-26] MEDS: Metoclopramide HCl 10 MG/2 ML VIAL IVP SCH ×3 (11:32→23:44)
[2019-11-26 11:45] LABS: Lactic Acid 1.8 mmol/L (0.5-2.2)
[2019-11-26 11:55] LABS: Anion Gap 11 mmol/L (10-20); BUN (Urea Nitrogen) 24 mg/dL (8.9-20.6); Calc. Creatinine Clearance 129 mL/min (70-130); Calcium 8.6 mg/dL (7.8-10.44); Carbon Dioxide 29 mmol/L (22-29); Chloride 108 mmol/L (98-107); Estimated GFR-MDRD 78; Glucose 139 mg/dL (70-105); Phosphorus 2.9 mg/dL (2.3-4.7); Potassium 4.4 mmol/L (3.5-5.1); Sodium 144 mmol/L (136-145)
[2019-11-26 12:09] LABS: Actual Bicarbonate (HCO3a) 29.5 mEq/L (22-28); Base Excess (BEa) 3.9 mEq/L (-2.0 to +3.0); Calcium, Ionized (arterial) 1.16 mmol/L (1.12-1.30); Carboxyhemoglobin (COHb) 0.3 gm% (0.0-3.0); Hemoglobin (Hb) 10.1 g/dL (14.0-18.0); O2 Tension (PaO2), arterial 72.1 mmHg (80.0-100.0); Potassium - ABG Lab 4.28 mmol/L (3.70-5.30)
[2019-11-26 12:22] LABS: SARS-CoV-2 MS2 Positive; SARS-CoV-2 N Gene Negative; SARS-CoV-2 S Gene Negative; SARS-CoV-2 by NAA Not Detected (NotDetected); SARS-CoV-2 orf1ab Negative
[2019-11-26 12:24] LABS: CK (CPK) 9121 U/L (30-200)
[2019-11-26] MEDS: Vecuronium 10 MG VIAL IV SCH (13:45)
[2019-11-26 14:24] LABS: Base Excess (BEa) 5.6 mEq/L (-2.0 to +3.0); CO2 Tension 49.2 mmHg (35.0-45.0); Carboxyhemoglobin (COHb) 0.3 gm% (0.0-3.0); Hemoglobin (Hb) 9.9 g/dL (14.0-18.0); O2 Tension (PaO2), arterial 74.6 mmHg (80.0-100.0); Potassium - ABG Lab 4.35 mmol/L (3.70-5.30); pH, Arterial 7.42 (7.35-7.45)
[2019-11-26 14:26] LABS: Puncture Site ALINE
[2019-11-26 14:27] LABS: Puncture Site ALINE
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
[2019-11-26] MEDS ORDERED: Albumin 25% 25 GM/100 ML BOT IVPB SCH ×2 (17:30→17:45)
[2019-11-26 18:01] LABS: Base Excess (BEa) 4.9 mEq/L (-2.0 to +3.0); CO2 Tension 53.8 mmHg (35.0-45.0); Carboxyhemoglobin (COHb) 0.3 gm% (0.0-3.0); Hemoglobin (Hb) 9.9 g/dL (14.0-18.0); O2 Tension (PaO2), arterial 67.7 mmHg (80.0-100.0); Potassium - ABG Lab 4.55 mmol/L (3.70-5.30); pH, Arterial 7.38 (7.35-7.45)
[2019-11-26 18:20] LABS: Puncture Site LINE
[2019-11-26] MEDS ORDERED: Furosemide 20 MG/2 ML VIAL SLOW IVP SCH (18:30)
[2019-11-26 18:44] LABS: Anion Gap 10 mmol/L (10-20); BUN (Urea Nitrogen) 26 mg/dL (8.9-20.6); Calc. Creatinine Clearance 132 mL/min (70-130); Calcium 8.9 mg/dL (7.8-10.44); Carbon Dioxide 30 mmol/L (22-29); Chloride 108 mmol/L (98-107); Estimated GFR-MDRD 81; Glucose 163 mg/dL (70-105); Phosphorus 3.2 mg/dL (2.3-4.7); Potassium 4.7 mmol/L (3.5-5.1); Sodium 143 mmol/L (136-145)
[2019-11-26] MEDS: Insulin Regular 300 UNITS/3 ML VIAL SC PRN (22:22)
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
[2019-11-27] MEDS ORDERED: Sodium Chloride 0.9% 500 ML IV SCH ×2 (01:30→12:45)
[2019-11-27 02:41] LABS: #Lymphocytes 0.3 thou/uL (1.20-3.40); #Monocytes 0.7 thou/uL (0.11-0.59); #Neutrophils 7.6 thou/uL (1.40-6.50); %Basophils 0.2 % (0.0-1.0); %Eosinophils 0.1 % (0.0-10.0); %Lymphocytes 3.9 % (21.0-51.0); %Monocytes 7.5 % (0.0-10.0); %Neutrophils 88.2 % (42.0-75.0); Hemoglobin 8.8 g/dL (14.0-18.0); Mean Corpuscular HGB CONC 33.9 g/dL (32.0-36.0); Mean Corpuscular Hemoglobin 31.1 pg (27.0-31.0); Mean Corpuscular Volume 91.8 fL (78.0-98.0); Mean Platelet Volume 9.9 fL (7.4-10.4); Platelet Count 46 thou/uL (130-400); RBC Distribution Width 13.8 % (11.5-14.5); Red Blood Cell (RBC) Count 2.84 mill/uL (4.70-6.10); White Blood Cell (WBC) Count 8.6 thou/uL (4.8-10.8)
[2019-11-27 03:10] LABS: Lactic Acid 1.6 mmol/L (0.5-2.2)
[2019-11-27 03:14] LABS: ALT (SGPT) 120 U/L (8-55); AST (SGOT) 200 U/L (5-34); Albumin 3.7 g/dL (3.5-5.0); Alkaline Phosphatase 64 U/L (40-110); Anion Gap 12 mmol/L (10-20); BUN (Urea Nitrogen) 30 mg/dL (8.9-20.6); Bilirubin, Total 0.7 mg/dL (0.2-1.2); Calc. Creatinine Clearance 131 mL/min (70-130); Calcium 8.4 mg/dL (7.8-10.44); Carbon Dioxide 29 mmol/L (22-29); Chloride 110 mmol/L (98-107); Estimated GFR-MDRD 80; Globulin 1.7 g/dL (2.4-3.5); Glucose 177 mg/dL (70-105); Magnesium 2.1 mg/dL (1.6-2.6); Phosphorus 3.2 mg/dL (2.3-4.7); Potassium 4.5 mmol/L (3.5-5.1); Protein, Total 5.4 g/dL (6.0-8.3); Sodium 146 mmol/L (136-145)
[2019-11-27 03:28] LABS: CK (CPK) 7348 U/L (30-200)
[2019-11-27] MEDS: methylPREDNISolone Sod Succ 40 MG VIAL IVP SCH ×4 (03:32→21:25)
[2019-11-27] MEDS: fentaNYL Citrate/PF 2,000 MCG in Sodium Chloride 0.9% 60 ML IV SCH ×2 (05:32→18:18)
[2019-11-27] MEDS: Insulin Regular 300 UNITS/3 ML VIAL SC PRN ×3 (06:38→19:37)
[2019-11-27] MEDS: Piperacillin/Tazobactam 3.375 GM in Sodium Chloride 0.9% 100 ML IVPB SCH ×4 (06:38→23:50)
[2019-11-27] MEDS: Metoclopramide HCl 10 MG/2 ML VIAL IVP SCH ×4 (06:38→23:50)
[2019-11-27 07:35] LABS: Actual Bicarbonate (HCO3a) 32.4 mEq/L (22-28); Base Excess (BEa) 5.2 mEq/L (-2.0 to +3.0); Calcium, Ionized (arterial) 1.17 mmol/L (1.12-1.30); Carboxyhemoglobin (COHb) 0.1 gm% (0.0-3.0); Hemoglobin (Hb) 10.2 g/dL (14.0-18.0); O2 Tension (PaO2), arterial 60.5 mmHg (80.0-100.0); Potassium - ABG Lab 4.52 mmol/L (3.70-5.30); pH, Arterial 7.33 (7.35-7.45)
[2019-11-27 09:00] LABS: CO2 Tension 62.6 mmHg (35.0-45.0)
[2019-11-27 09:01] LABS: Puncture Site ALINE
[2019-11-27 09:17] LABS: Actual Bicarbonate (HCO3a) 31.7 mEq/L (22-28); Base Excess (BEa) 4.9 mEq/L (-2.0 to +3.0); CO2 Tension 59.2 mmHg (35.0-45.0); Calcium, Ionized (arterial) 1.15 mmol/L (1.12-1.30); Carboxyhemoglobin (COHb) 0.3 gm% (0.0-3.0); Hemoglobin (Hb) 9.8 g/dL (14.0-18.0); O2 Tension (PaO2), arterial 66.9 mmHg (80.0-100.0); Potassium - ABG Lab 4.32 mmol/L (3.70-5.30); pH, Arterial 7.35 (7.35-7.45)
[2019-11-27 09:28] LABS: Puncture Site ALINE
[2019-11-27] MEDS ORDERED: Iopamidol 370 76% 50 ML VIAL FS ONE (09:34)
--- NOTE | 2019-11-27 09:47 | RAD ---
CHEST 1 VIEW: INDICATION: Chest tube placement. COMPARISON: Prior exam dated 11/26/2019. FINDINGS: Bilateral thoracostomy tubes are stable-appearing. The patient is intubated with gastric catheter pl acement and right subclavian central venous catheter placement. A small residual right-sided pneumot horax, particularly in the right apex and medial right basilar aspect of the hemithorax is stable-eloina earing. No left-sided pneumothorax is grossly evident. There is improvement in the airspace disease bilaterally likely reflecting slowly improving contusions. Subcutaneous emphysema involving the nec k base remains. Osseous structures are unchanged. IMPRESSION: 1. Persistent small right-sided apical and minimal right basilar pneumothorax. 2. Slowly improving bilateral pulmonary contusions. 3. Tubes and lines are stable. POS: BH
[2019-11-27 10:49] LABS: Base Excess (BEa) 5.6 mEq/L (-2.0 to +3.0); Calcium, Ionized (arterial) 1.17 mmol/L (1.12-1.30); Carboxyhemoglobin (COHb) 0.3 gm% (0.0-3.0); Hemoglobin (Hb) 9.8 g/dL (14.0-18.0); O2 Tension (PaO2), arterial 66.8 mmHg (80.0-100.0); Potassium - ABG Lab 4.37 mmol/L (3.70-5.30); pH, Arterial 7.32 (7.35-7.45)
[2019-11-27] MEDS: Senokot S 8.6-50 MG TAB PO SCH ×2 (10:59→21:25)
[2019-11-27] MEDS: Polyethylene Glycol 3350 17 GM Packet PO SCH (10:59)
[2019-11-27] MEDS: Famotidine/PF 20 mg/2ml Vial SLOW IVP SCH ×2 (11:00→21:25)
[2019-11-27 11:46] LABS: ALV-art Gradient 565.075 mmHg (0-20); CO2 Tension 64.9 mmHg (35.0-45.0); Puncture Site ALINE
[2019-11-27] MEDS ORDERED: Midazolam HCl 2 mg/2 ml Vial SLOW IVP SCH (12:45)
[2019-11-27] MEDS ORDERED: Sterile Water 10 ML ONE (13:39)
[2019-11-27] MEDS: Vecuronium Bromide 50 MG in Sodium Chloride 0.9% 250 ML 250 ML IV SCH ×2 (13:55→23:10)
[2019-11-27] MEDS: Vecuronium 10 MG VIAL IV SCH (14:30)
[2019-11-27 14:31] LABS: Hemoglobin 8.8 g/dL (14.0-18.0); Mean Corpuscular HGB CONC 32.2 g/dL (32.0-36.0); Mean Corpuscular Hemoglobin 30.2 pg (27.0-31.0); Mean Platelet Volume 9.6 fL (7.4-10.4); Platelet Count 77 thou/uL (130-400); RBC Distribution Width 13.8 % (11.5-14.5); Red Blood Cell (RBC) Count 2.91 mill/uL (4.70-6.10); White Blood Cell (WBC) Count 17.4 thou/uL (4.8-10.8)
[2019-11-27 14:49] LABS: Band 58 % (5-11); Eosinophils 1 % (0-10); Lymphocytes 3 % (21-51); MDiff Complete? YES; Monocytes 8 % (0-10); Neutrophil 30 % (42-75); Nucleated RBC 1 % (0); Platelet Morphology Comment Appears Decreased; Polychromasia MODERATE = 3-4 cells (100X) (0-2/hpf)
[2019-11-27 14:56] LABS: CK (CPK) 7182 U/L (30-200)
[2019-11-27 15:09] LABS: Phosphorus 2.5 mg/dL (2.3-4.7)
[2019-11-27 15:14] LABS: Anion Gap 11 mmol/L (10-20); BUN (Urea Nitrogen) 29 mg/dL (8.9-20.6); Calc. Creatinine Clearance 163 mL/min (70-130); Calcium 8.1 mg/dL (7.8-10.44); Carbon Dioxide 30 mmol/L (22-29); Chloride 110 mmol/L (98-107); Estimated GFR-MDRD Greater than 90; Glucose 181 mg/dL (70-105); Magnesium 2.2 mg/dL (1.6-2.6); Potassium 4.4 mmol/L (3.5-5.1); Sodium 147 mmol/L (136-145)
[2019-11-27 15:21] LABS: Actual Bicarbonate (HCO3a) 27.9 mEq/L (22-28); Base Excess (BEa) 1.4 mEq/L (-2.0 to +3.0); CO2 Tension 53.8 mmHg (35.0-45.0); Calcium, Ionized (arterial) 1.13 mmol/L (1.12-1.30); Carboxyhemoglobin (COHb) 0.3 gm% (0.0-3.0); Hemoglobin (Hb) 9.2 g/dL (14.0-18.0); Potassium - ABG Lab 4.43 mmol/L (3.70-5.30); pH, Arterial 7.33 (7.35-7.45)
[2019-11-27 15:25] LABS: O2 Tension (PaO2), arterial 58.7 mmHg (80.0-100.0)
[2019-11-27 15:26] LABS: Puncture Site ALINE
[2019-11-27] MEDS ORDERED: Lidocaine 1% (PF) 30 ML VIAL ONE (15:39)
[2019-11-27] MEDS: Norepinephrine 8 MG/0.9% NS 250 ML IVPB SCH (15:42)
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
[2019-11-28] MEDS: Insulin Regular 300 UNITS/3 ML VIAL SC PRN ×6 (00:14→23:46)
[2019-11-28] MEDS: methylPREDNISolone Sod Succ 40 MG VIAL IVP SCH ×4 (03:30→21:14)
[2019-11-28 04:19] LABS: Lactic Acid 1.7 mmol/L (0.5-2.2)
[2019-11-28 04:24] LABS: ALT (SGPT) 130 U/L (8-55); AST (SGOT) 161 U/L (5-34); Albumin 3.2 g/dL (3.5-5.0); Alkaline Phosphatase 70 U/L (40-110); Anion Gap 11 mmol/L (10-20); BUN (Urea Nitrogen) 33 mg/dL (8.9-20.6); Bilirubin, Total 0.8 mg/dL (0.2-1.2); Calc. Creatinine Clearance 151 mL/min (70-130); Calcium 7.7 mg/dL (7.8-10.44); Carbon Dioxide 29 mmol/L (22-29); Chloride 113 mmol/L (98-107); Estimated GFR-MDRD Greater than 90; Globulin 1.7 g/dL (2.4-3.5); Glucose 174 mg/dL (70-105); Magnesium 2.4 mg/dL (1.6-2.6); Phosphorus 2.3 mg/dL (2.3-4.7); Potassium 4.4 mmol/L (3.5-5.1); Protein, Total 4.9 g/dL (6.0-8.3); Sodium 149 mmol/L (136-145)
[2019-11-28 04:37] LABS: CK (CPK) 7107 U/L (30-200)
[2019-11-28 05:30] LABS: Band 29 % (5-11); Hemoglobin 8.6 g/dL (14.0-18.0); Lymphocytes 6 % (21-51); MDiff Complete? YES; Mean Corpuscular HGB CONC 33.2 g/dL (32.0-36.0); Mean Corpuscular Hemoglobin 30.8 pg (27.0-31.0); Mean Corpuscular Volume 92.9 fL (78.0-98.0); Mean Platelet Volume 10.6 fL (7.4-10.4); Monocytes 9 % (0-10); Neutrophil 56 % (42-75); Platelet Count 56 thou/uL (130-400); Platelet Morphology Comment Appears Decreased; RBC Distribution Width 13.9 % (11.5-14.5); Red Blood Cell (RBC) Count 2.78 mill/uL (4.70-6.10); White Blood Cell (WBC) Count 16.3 thou/uL (4.8-10.8)
[2019-11-28] MEDS: Piperacillin/Tazobactam 3.375 GM in Sodium Chloride 0.9% 100 ML IVPB SCH ×4 (06:03→23:45)
[2019-11-28] MEDS: Metoclopramide HCl 10 MG/2 ML VIAL IVP SCH (06:03)
[2019-11-28 07:50] LABS: Actual Bicarbonate (HCO3a) 26.5 mEq/L (22-28); CO2 Tension 41.1 mmHg (35.0-45.0); Calcium, Ionized (arterial) 1.12 mmol/L (1.12-1.30); Carboxyhemoglobin (COHb) 0.1 gm% (0.0-3.0); Hemoglobin (Hb) 8.8 g/dL (14.0-18.0); O2 Tension (PaO2), arterial 109.4 mmHg (80.0-100.0); Potassium - ABG Lab 4.39 mmol/L (3.70-5.30); pH, Arterial 7.43 (7.35-7.45)
--- NOTE | 2019-11-28 07:50 | RAD ---
Portable frontal chest radiograph: 11/28/2019 COMPARISON: 11/27/2019 HISTORY: Injury, trauma, pain FINDINGS: Lung apices are not fully imaged on this exam. Stable endotracheal tube, nasogastric tube, and right vascular catheter. Drainage catheter curls in the right upper quadrant. Bilateral chest tubes are present. There is hazy airspace disease within the left base, the right perihilar region, i n the right base. Dense opacity in the right costophrenic angle noted, suggesting airspace disease and/or pleural fluid. Multiple right-sided rib fractures are noted. Probable small volume pneumothora x within the right lung base. There is a partially visualized right clavicle fracture. IMPRESSION: Portable chest radiograph as detailed above.
[2019-11-28 08:13] LABS: Puncture Site ALINE
[2019-11-28 08:14] LABS: ALV-art Gradient 480.925 mmHg (0-20)
[2019-11-28] MEDS: fentaNYL Citrate/PF 2,000 MCG in Sodium Chloride 0.9% 60 ML IV SCH ×2 (08:59→20:35)
[2019-11-28] MEDS: Famotidine/PF 20 mg/2ml Vial SLOW IVP SCH ×2 (09:10→20:55)
[2019-11-28] MEDS: Senokot S 8.6-50 MG TAB PO SCH (09:10)
[2019-11-28 11:59] LABS: Actual Bicarbonate (HCO3a) 28.9 mEq/L (22-28); Base Excess (BEa) 3.3 mEq/L (-2.0 to +3.0); CO2 Tension 49.3 mmHg (35.0-45.0); Calcium, Ionized (arterial) 1.12 mmol/L (1.12-1.30); Carboxyhemoglobin (COHb) 0.1 gm% (0.0-3.0); Hemoglobin (Hb) 9.3 g/dL (14.0-18.0); pH, Arterial 7.39 (7.35-7.45)
[2019-11-28 12:00] LABS: O2 Tension (PaO2), arterial 52.1 mmHg (80.0-100.0)
[2019-11-28 12:01] LABS: ALV-art Gradient 456.675 mmHg (0-20); Puncture Site ALINE
--- NOTE | 2019-11-28 12:45 | RAD ---
RIGHT CLAVICLE 2 VIEWS: HISTORY: Followup of fracture. COMPARISON: Prior day's chest x-ray study. FINDINGS: A comminuted midshaft clavicular fracture is seen. The fracture is 1 shaft width displaced. IMPRESSION: Midshaft clavicular fracture. POS: [facility]
[2019-11-28] MEDS ORDERED: Calcium Chloride 1 GM/10 ML Abboject SYRINGE IVP SCH (13:00)
[2019-11-28] MEDS ORDERED: Calcium Chloride 1 GM/10 ML Abboject SYRINGE ONE (13:00)
[2019-11-28] MEDS ORDERED: Sodium Chloride 0.9% 500 ML IV SCH (13:30)
[2019-11-28] MEDS ORDERED: [UNRECOGNIZED DRUG - OTHER] IV SCH (14:00)
[2019-11-28] MEDS ORDERED: POTASSIUM PHOSPHATE IV SCH (14:00)
[2019-11-28] MEDS ORDERED: SODIUM CHLORIDE IV SCH (14:00)
[2019-11-28] MEDS ORDERED: SODIUM ACETATE IV SCH (14:00)
[2019-11-28] MEDS ORDERED: Propofol 1,000 MG/100 ML VIAL IV ONE (15:26)
[2019-11-28] MEDS ORDERED: Propofol BOLUS 1,000 MG/100 ML VIAL IV PRN (15:45)
[2019-11-28 16:18] LABS: Hemoglobin 8.2 g/dL (14.0-18.0); Mean Corpuscular HGB CONC 31.5 g/dL (32.0-36.0); Mean Corpuscular Hemoglobin 29.7 pg (27.0-31.0); Mean Corpuscular Volume 94.3 fL (78.0-98.0); RBC Distribution Width 14.1 % (11.5-14.5); Red Blood Cell (RBC) Count 2.75 mill/uL (4.70-6.10); White Blood Cell (WBC) Count 14.8 thou/uL (4.8-10.8)
[2019-11-28 16:24] LABS: Platelet Count 46 thou/uL (130-400)
[2019-11-28 16:32] LABS: Lactic Acid 1.8 mmol/L (0.5-2.2)
[2019-11-28 16:34] LABS: Anion Gap 12 mmol/L (10-20); BUN (Urea Nitrogen) 36 mg/dL (8.9-20.6); Calc. Creatinine Clearance 141 mL/min (70-130); Calcium 8.1 mg/dL (7.8-10.44); Carbon Dioxide 27 mmol/L (22-29); Chloride 116 mmol/L (98-107); Estimated GFR-MDRD 87; Glucose 175 mg/dL (70-105); Magnesium 2.5 mg/dL (1.6-2.6); Phosphorus 2.1 mg/dL (2.3-4.7); Potassium 4.3 mmol/L (3.5-5.1); Sodium 151 mmol/L (136-145)
[2019-11-28 16:53] LABS: Band 25 % (5-11); Lymphocytes 4 % (21-51); MDiff Complete? YES; Metamyelocyte 1 % (0-0); Monocytes 6 % (0-10); Myelocyte 1 % (0-0); Neutrophil 63 % (42-75); Nucleated RBC 2 % (0); Platelet Morphology Comment Appears Decreased; Polychromasia MODERATE = 3-4 cells (100X) (0-2/hpf)
[2019-11-28 16:56] LABS: Actual Bicarbonate (HCO3a) 25.1 mEq/L (22-28); CO2 Tension 37.8 mmHg (35.0-45.0); Calcium, Ionized (arterial) 1.18 mmol/L (1.12-1.30); Carboxyhemoglobin (COHb) 0.3 gm% (0.0-3.0); Hemoglobin (Hb) 8.4 g/dL (14.0-18.0); Potassium - ABG Lab 4.19 mmol/L (3.70-5.30); pH, Arterial 7.44 (7.35-7.45)
[2019-11-28 16:59] LABS: O2 Tension (PaO2), arterial 59.7 mmHg (80.0-100.0); Puncture Site RR
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
[2019-11-28 19:48] LABS: Base Excess (BEa) 1.1 mEq/L (-2.0 to +3.0); CO2 Tension 36.9 mmHg (35.0-45.0); Calcium, Ionized (arterial) 1.17 mmol/L (1.12-1.30); Carboxyhemoglobin (COHb) 0.3 gm% (0.0-3.0); O2 Tension (PaO2), arterial 66.5 mmHg (80.0-100.0); Potassium - ABG Lab 4.11 mmol/L (3.70-5.30); pH, Arterial 7.45 (7.35-7.45)
[2019-11-28 19:59] LABS: Puncture Site LINE
[2019-11-28 20:00] LABS: ALV-art Gradient 243.875 mmHg (0-20)
[2019-11-28] MEDS: Lorazepam 2 MG/ML VIAL SLOW IVP PRN (21:13)
[2019-11-28 22:24] LABS: Actual Bicarbonate (HCO3a) 24.4 mEq/L (22-28); Base Excess (BEa) 0.3 mEq/L (-2.0 to +3.0); Calcium, Ionized (arterial) 1.17 mmol/L (1.12-1.30); Carboxyhemoglobin (COHb) 0.1 gm% (0.0-3.0); Hemoglobin (Hb) 9.4 g/dL (14.0-18.0); Potassium - ABG Lab 4.03 mmol/L (3.70-5.30); pH, Arterial 7.44 (7.35-7.45)
[2019-11-28 22:28] LABS: O2 Tension (PaO2), arterial 59.7 mmHg (80.0-100.0)
[2019-11-28 22:29] LABS: Puncture Site LINE
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
[2019-11-29] MEDS: Lorazepam 2 MG/ML VIAL SLOW IVP PRN (02:24)
[2019-11-29] MEDS: methylPREDNISolone Sod Succ 40 MG VIAL IVP SCH ×3 (02:24→15:22)
[2019-11-29] MEDS: Insulin Regular 300 UNITS/3 ML VIAL SC PRN ×5 (04:26→20:57)
[2019-11-29 05:14] LABS: Anion Gap 12 mmol/L (10-20); BUN (Urea Nitrogen) 43 mg/dL (8.9-20.6); Calc. Creatinine Clearance 140 mL/min (70-130); Calcium 7.9 mg/dL (7.8-10.44); Carbon Dioxide 26 mmol/L (22-29); Chloride 117 mmol/L (98-107); Estimated GFR-MDRD 86; Glucose 235 mg/dL (70-105); Magnesium 2.5 mg/dL (1.6-2.6); Phosphorus Less than 1.0 mg/dL (2.3-4.7); Potassium 4.1 mmol/L (3.5-5.1); Sodium 151 mmol/L (136-145)
[2019-11-29 05:17] LABS: Band 9 % (5-11); Hemoglobin 8.7 g/dL (14.0-18.0); Lymphocytes 3 % (21-51); MDiff Complete? YES; Mean Corpuscular HGB CONC 33.1 g/dL (32.0-36.0); Mean Corpuscular Hemoglobin 30.4 pg (27.0-31.0); Mean Corpuscular Volume 91.9 fL (78.0-98.0); Mean Platelet Volume 13.7 fL (7.4-10.4); Monocytes 7 % (0-10); Myelocyte 1 % (0-0); Neutrophil 80 % (42-75); Nucleated RBC 7 % (0); Platelet Count 34 thou/uL (130-400); Platelet Morphology Comment Appears Decreased; RBC Distribution Width 14.2 % (11.5-14.5); Red Blood Cell (RBC) Count 2.86 mill/uL (4.70-6.10); Schistocytes SLIGHT = 2-5 cells (100X) (0-1/hpf)
[2019-11-29] MEDS: Piperacillin/Tazobactam 3.375 GM in Sodium Chloride 0.9% 100 ML IVPB SCH ×4 (05:27→23:52)
[2019-11-29] MEDS: Propofol 1,000 MG/100 ML VIAL IV PRN ×4 (05:28→20:51)
[2019-11-29] MEDS ORDERED: Sodium Phosphate 30 MMOL in Sodium Chloride 0.9% 250 ML 250 ML IVPB SCH (05:45)
[2019-11-29] MEDS: fentaNYL Citrate/PF 2,000 MCG in Sodium Chloride 0.9% 60 ML IV SCH ×2 (06:03→17:16)
[2019-11-29 06:52] LABS: Base Excess (BEa) 2.4 mEq/L (-2.0 to +3.0); CO2 Tension 36.4 mmHg (35.0-45.0); Calcium, Ionized (arterial) 1.16 mmol/L (1.12-1.30); Carboxyhemoglobin (COHb) 0.7 gm% (0.0-3.0); Potassium - ABG Lab 4.12 mmol/L (3.70-5.30); pH, Arterial 7.47 (7.35-7.45)
[2019-11-29 06:55] LABS: O2 Tension (PaO2), arterial 53.9 mmHg (80.0-100.0); Puncture Site ALINE
[2019-11-29] MEDS: Acetaminophen 650 MG Suppository PR PRN (07:48)
[2019-11-29] MEDS ORDERED: Iopamidol-370 76% 500 ML 1 ML ONE (08:58)
[2019-11-29] MEDS: Famotidine/PF 20 mg/2ml Vial SLOW IVP SCH ×2 (09:11→20:21)
--- NOTE | 2019-11-29 09:41 | RAD ---
PORTABLE CHEST: HISTORY: CCU followup. Intubation and respiratory followup. COMPARISON: 11/28/2019. FINDINGS: Bilateral chest tubes are unchanged. ET tube and NG tube unchanged. Central line unchanged. Airspace disease in the right mid and lower lung with right effusion again noted. Probable tiny righ t basilar pneumothorax as noted previously. The right clavicle fracture and right rib fracture have been previously described. IMPRESSION: No significant interval change. POS: [facility]
[2019-11-29] MEDS ORDERED: Sterile Water 10 ML ONE (09:57)
[2019-11-29] MEDS: Vecuronium Bromide 50 MG in Sodium Chloride 0.9% 250 ML 250 ML IV SCH (10:48)
[2019-11-29] MEDS ORDERED: Vancomycin 1.5 GRAM/300 ML BAG 1.5 GM in Premix Bag 1 BAG IVPB SCH (11:00)
[2019-11-29] MEDS ORDERED: Vecuronium 10 MG VIAL IV SCH ×2 (11:00→14:45)
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
[2019-11-29] MEDS: Acetaminophen 325 MG TAB PER TUBE PRN ×2 (11:49→18:44)
[2019-11-29] MEDS ORDERED: LYTES IN TPN IVPB PRN (13:22)
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
[2019-11-29] MEDS ORDERED: SODIUM CHLORIDE IV SCH (14:00)
[2019-11-29] MEDS ORDERED: [UNRECOGNIZED DRUG - OTHER] IV SCH (14:00)
[2019-11-29] MEDS ORDERED: CALCIUM GLUCONATE IV SCH (14:00)
[2019-11-29] MEDS ORDERED: SODIUM ACETATE IV SCH ×2 (14:00)
[2019-11-29] MEDS ORDERED: [UNRECOGNIZED DRUG - OTHER] IV SCH (14:00)
[2019-11-29] MEDS ORDERED: POTASSIUM PHOSPHATE IV SCH ×2 (14:00)
[2019-11-29] MEDS ORDERED: VANCOMYCIN IVPB PRN (14:27)
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
[2019-11-29] MEDS: Furosemide 20 MG/2 ML VIAL SLOW IVP SCH ×2 (14:41→22:18)
[2019-11-29 15:29] LABS: Actual Bicarbonate (HCO3a) 28.3 mEq/L (22-28); Base Excess (BEa) 2.7 mEq/L (-2.0 to +3.0); CO2 Tension 48.5 mmHg (35.0-45.0); Calcium, Ionized (arterial) 1.12 mmol/L (1.12-1.30); Carboxyhemoglobin (COHb) 0.6 gm% (0.0-3.0); Hemoglobin (Hb) 9.5 g/dL (14.0-18.0); O2 Tension (PaO2), arterial 82.3 mmHg (80.0-100.0); Potassium - ABG Lab 4.35 mmol/L (3.70-5.30); pH, Arterial 7.38 (7.35-7.45)
[2019-11-29 15:42] LABS: Puncture Site ALINE
[2019-11-29 17:11] LABS: ALV-art Gradient 320.525 mmHg (0-20)
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
[2019-11-29 18:44] LABS: Anion Gap 12 mmol/L (10-20); BUN (Urea Nitrogen) 44 mg/dL (8.9-20.6); Calc. Creatinine Clearance 132 mL/min (70-130); Calcium 7.6 mg/dL (7.8-10.44); Carbon Dioxide 27 mmol/L (22-29); Chloride 115 mmol/L (98-107); Estimated GFR-MDRD 81; Glucose 213 mg/dL (70-105); Magnesium 2.3 mg/dL (1.6-2.6); Phosphorus 2.9 mg/dL (2.3-4.7); Potassium 4.1 mmol/L (3.5-5.1); Sodium 150 mmol/L (136-145)
[2019-11-29] MEDS ORDERED: Sodium Phosphate 30 MMOL in Sodium Chloride 0.9% 250 ML 250 ML IVPB ONE (19:30)
[2019-11-29] MEDS: Vancomycin 1.5 GRAM/300 ML BAG 1.5 GM in Premix Bag 1 BAG IVPB SCH (20:21)
[2019-11-29 21:00] LABS: Actual Bicarbonate (HCO3a) 28.1 mEq/L (22-28); Base Excess (BEa) 2.1 mEq/L (-2.0 to +3.0); CO2 Tension 51.1 mmHg (35.0-45.0); Calcium, Ionized (arterial) 1.15 mmol/L (1.12-1.30); Carboxyhemoglobin (COHb) 0.4 gm% (0.0-3.0); Hemoglobin (Hb) 9.3 g/dL (14.0-18.0); Potassium - ABG Lab 3.84 mmol/L (3.70-5.30); pH, Arterial 7.36 (7.35-7.45)
[2019-11-29 21:02] LABS: O2 Tension (PaO2), arterial 54.2 mmHg (80.0-100.0)
[2019-11-29 21:04] LABS: Puncture Site ALINE
[2019-11-29 21:05] LABS: ALV-art Gradient 309.725 mmHg (0-20)
--- NOTE | 2019-11-29 21:29 | RAD ---
XR Chest 1 View HISTORY: Respiratory failure, hypoxia COMPARISON: Earlier exam of 5:21 AM from same date FINDINGS: There is been interval placement of a left upper extremity PICC line with tip in the projec tion of the SVC. Remainder of the Line and tube placements are unchanged in position. There is been interval worsening of airspace disease in the right lung. Remainder the exam is otherwise stable.
[2019-11-29 21:33] LABS: INR-International Normal Ratio 2.5; PTT 36.4 sec (22.9-36.1); Prothrombin Time 27.1 sec (12.0-14.7)
[2019-11-29 22:31] LABS: FSP-Qualitative ABNORMAL (Normal)
[2019-11-29 22:36] LABS: FSP-Semiquantitative >320 mcg/mL (Less than 5)
[2019-11-29 22:44] LABS: D-Dimer Test Greater than 20.00 *mcg/mL (0.27-0.43)
[2019-11-29 22:52] LABS: Fibrinogen 28 mg/dL (253-463)
[2019-11-29 22:53] LABS: Platelet Count 34 thou/uL (130-400)
[2019-11-30] MEDS: Acetaminophen 325 MG TAB PER TUBE PRN ×4 (00:23→14:25)
[2019-11-30] MEDS: Insulin Regular 300 UNITS/3 ML VIAL SC PRN ×2 (00:40→03:43)
[2019-11-30] MEDS: Propofol 1,000 MG/100 ML VIAL IV PRN ×5 (01:44→21:07)
[2019-11-30] MEDS: Vancomycin 1.5 GRAM/300 ML BAG 1.5 GM in Premix Bag 1 BAG IVPB SCH ×2 (03:06→12:54)
[2019-11-30 03:28] LABS: PTT 33.5 sec (22.9-36.1); Prothrombin Time 23.3 sec (12.0-14.7)
[2019-11-30 03:41] LABS: Anion Gap 12 mmol/L (10-20); BUN (Urea Nitrogen) 42 mg/dL (8.9-20.6); Calc. Creatinine Clearance 139 mL/min (70-130); Calcium 7.4 mg/dL (7.8-10.44); Carbon Dioxide 28 mmol/L (22-29); Chloride 114 mmol/L (98-107); Estimated GFR-MDRD 85; Glucose 256 mg/dL (70-105); Magnesium 2.2 mg/dL (1.6-2.6); Phosphorus 3.3 mg/dL (2.3-4.7); Potassium 3.7 mmol/L (3.5-5.1); Sodium 150 mmol/L (136-145)
[2019-11-30 03:53] LABS: Hemoglobin 8.4 g/dL (14.0-18.0); Mean Corpuscular HGB CONC 33.6 g/dL (32.0-36.0); Mean Corpuscular Volume 92.3 fL (78.0-98.0); Mean Platelet Volume 12.5 fL (7.4-10.4); Platelet Count 36 thou/uL (130-400); RBC Distribution Width 15.1 % (11.5-14.5); Red Blood Cell (RBC) Count 2.71 mill/uL (4.70-6.10); White Blood Cell (WBC) Count 17.6 thou/uL (4.8-10.8)
[2019-11-30 03:54] LABS: Anisocytosis SLIGHT = 6-15 cells (100X) (0-5/hpf); Band 20 % (5-11); Bite Cells SLIGHT = 2-5 cells (100X) (0-1/hpf); Lymphocytes 15 % (21-51); MDiff Complete? YES; Monocytes 2 % (0-10); Myelocyte 2 % (0-0); Neutrophil 61 % (42-75); Nucleated RBC 16 % (0); Platelet Morphology Comment Appears Decreased; Polychromasia SLIGHT = 2-3 cells (100X) (0-2/hpf); Schistocytes SLIGHT = 2-5 cells (100X) (0-1/hpf)
[2019-11-30 04:07] LABS: CK (CPK) 8595 U/L (30-200)
[2019-11-30 04:13] LABS: FSP-Qualitative ABNORMAL (Normal); FSP-Semiquantitative >320 mcg/mL (Less than 5)
[2019-11-30 04:21] LABS: D-Dimer Test Greater than 20.00 *mcg/mL (0.27-0.43); Fibrinogen 85 mg/dL (253-463)
[2019-11-30 04:22] LABS: Platelet Count 35 thou/uL (130-400)
[2019-11-30] MEDS ORDERED: Vecuronium 10 MG VIAL ONE (04:45)
[2019-11-30] MEDS ORDERED: Vecuronium 10 MG VIAL IV PRN (04:51)
[2019-11-30] MEDS: fentaNYL Citrate/PF 2,000 MCG in Sodium Chloride 0.9% 60 ML IV SCH ×2 (05:35→17:42)
[2019-11-30] MEDS: Furosemide 20 MG/2 ML VIAL SLOW IVP SCH (05:42)
[2019-11-30] MEDS: Piperacillin/Tazobactam 3.375 GM in Sodium Chloride 0.9% 100 ML IVPB SCH (05:42)
--- NOTE | 2019-11-30 07:51 | RAD ---
Chest AP view INDICATION: Chest tube placement COMPARISON: Prior exam dated November 29, 2019 FINDINGS: Lungs: Bilateral airspace disease is stable. Cardiac silhouette: Mild cardiomegaly is stable Pulmonary vasculature: Normal Pleural spaces: Small right apical pneumothorax persists. Bilateral thoracostomy tubes are again see n. Small right pleural effusion is stable Upper abdomen: No abnormality seen. Osseous structures: No acute osseous abnormality. Additional findings: Right subclavian central venous catheter, left-sided PICC line, ET tube, gastri c catheter and bilateral thoracostomy tubes appear similar to the most recent examination. IMPRESSION: Persistent small right apical pneumothorax. Stable tubes and lines. Stable bilateral airspace disease and small right pleural effusion
--- NOTE | 2019-11-30 07:55 | CT ---
CT OF THE BRAIN WITHOUT CONTRAST: Date: 11/30/2019 COMPARISON: 11/27/2019. HISTORY: Epidural hematoma. TECHNIQUE: Multiple contiguous axial images were obtained in a CT of the brain without contrast. FINDINGS: There is a small extra-axial hematoma along the left frontotemporal convexity. This has slightly incr eased in size, measuring 6.0 mm in thickness. No midline shift or downward herniation is seen. There is a small area of hyperdensity in the region of the third ventricle which could represent a small co lloid cyst. No intraventricular hemorrhage is seen in the posterior aspect of the lateral ventricles. Altagracia are seen in the right frontal scalp. The underlying calvarium is unremarkable. The visualized paranasal sinuses and mastoid air cells are well aerated. IMPRESSION: Slight enlargement of left extra-axial blood which could represent an epidural hematoma. POS: EAA
[2019-11-30] MEDS: Famotidine/PF 20 mg/2ml Vial SLOW IVP SCH ×2 (08:13→20:48)
[2019-11-30] MEDS ORDERED: HUMULIN R 100 UNITS in Sodium Chloride 0.9% 100 ML IVPB SCH (08:30)
[2019-11-30] MEDS: Meropenem 2 GM, Admixture Fee 1 EACH in Sodium Chloride 0.9% 100 ML IVPB SCH ×2 (08:55→18:09)
[2019-11-30 09:25] LABS: Actual Bicarbonate (HCO3a) 28.3 mEq/L (22-28); Base Excess (BEa) 4.7 mEq/L (-2.0 to +3.0); CO2 Tension 37.7 mmHg (35.0-45.0); Calcium, Ionized (arterial) 1.03 mmol/L (1.12-1.30); Carboxyhemoglobin (COHb) 0.8 gm% (0.0-3.0); Hemoglobin (Hb) 7.5 g/dL (14.0-18.0); O2 Tension (PaO2), arterial 66.3 mmHg (80.0-100.0); Potassium - ABG Lab 3.63 mmol/L (3.70-5.30); pH, Arterial 7.49 (7.35-7.45)
[2019-11-30] MEDS ORDERED: Labetalol HCl 100 MG/20 ML VIAL ONE (09:31)
[2019-11-30] MEDS: Labetalol HCl 100 MG/20 ML VIAL SLOW IVP PRN ×2 (09:38→09:40)
[2019-11-30] MEDS: Lorazepam 2 MG/ML VIAL SLOW IVP PRN ×2 (09:45→14:04)
[2019-11-30] MEDS ORDERED: Furosemide 20 MG/2 ML VIAL SLOW IVP SCH (10:00)
[2019-11-30] MEDS: Metoclopramide HCl 10 MG/2 ML VIAL IVP SCH ×3 (10:01→20:47)
[2019-11-30] MEDS: Saccharomyces boulardii 250 MG CAP PO SCH ×2 (10:02→20:49)
[2019-11-30] MEDS: Levalbuterol HCl 0.63 MG/3 ML NEB NEB SCH ×4 (10:45→21:55)
[2019-11-30] MEDS: niCARdipine 50 MG in Sodium Chloride 0.9% 250 ML 40 MG/230 ML BAG IVPB SCH ×4 (10:54→23:36)
[2019-11-30 10:58] LABS: Puncture Site LINE
[2019-11-30 10:59] LABS: ALV-art Gradient 314.375 mmHg (0-20)
[2019-11-30 11:17] LABS: Fibrinogen 188 mg/dL (253-463); INR-International Normal Ratio 1.8; PTT 34.2 sec (22.9-36.1); Prothrombin Time 21.6 sec (12.0-14.7)
[2019-11-30 11:28] LABS: Vancomycin, Trough 9.6 ug/mL
[2019-11-30] MEDS ORDERED: Morphine 4 MG/ML VIAL ONE (11:44)
[2019-11-30] MEDS ORDERED: Calcium Chloride 1 GM/10 ML Abboject SYRINGE IVP SCH (11:45)
[2019-11-30] MEDS ORDERED: Morphine 4 MG/ML VIAL SLOW IVP SCH (12:00)
[2019-11-30 12:07] LABS: Actual Bicarbonate (HCO3a) 31.4 mEq/L (22-28); Base Excess (BEa) 6.5 mEq/L (-2.0 to +3.0); CO2 Tension 46.8 mmHg (35.0-45.0); Calcium, Ionized (arterial) 1.04 mmol/L (1.12-1.30); Carboxyhemoglobin (COHb) 0.7 gm% (0.0-3.0); Hemoglobin (Hb) 8.7 g/dL (14.0-18.0); O2 Tension (PaO2), arterial 65.3 mmHg (80.0-100.0); Potassium - ABG Lab 3.87 mmol/L (3.70-5.30); pH, Arterial 7.44 (7.35-7.45)
[2019-11-30 12:12] LABS: Puncture Site LINE
[2019-11-30 12:47] LABS: FSP-Qualitative ABNORMAL (Normal); FSP-Semiquantitative >320 mcg/mL (Less than 5)
[2019-11-30] MEDS ORDERED: POTASSIUM PHOSPHATE IV SCH (14:00)
[2019-11-30] MEDS ORDERED: [UNRECOGNIZED DRUG - OTHER] IV SCH (14:00)
[2019-11-30] MEDS ORDERED: CALCIUM GLUCONATE IV SCH (14:00)
[2019-11-30] MEDS: Vancomycin HCl 1.75 GM in Sodium Chloride 0.9% 500 ML IVPB SCH ×2 (14:04→20:49)
--- NOTE | 2019-11-30 14:47 | EEG ---
DATE OF SERVICE: 11/30/2019 ATTENDING: Debra Townsend MD. REASON FOR THE TEST: Altered mental status. This EEG was performed using 24-channel [employer] video digital EEG machine with 24-disk electrodes. This was an extended 2 hours 5 minutes of inpatient video EEG recording. Digital analysis of the EEG was done for spike and seizure detection which revealed no abnormalities. BACKGROUND: The posterior background rhythm was not observed. HYPERVENTILATION: Not performed. PHOTIC STIMULATION: Not performed. SLEEP: No stage change was observed. EEG DIAGNOSIS: Generalized irregular delta activity seen throughout the recording. CLINICAL INTERPRETATION: This EEG is consistent with severe generalized nonspecific cerebral dysfunction. Job ID: [id number]
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
[2019-11-30] MEDS ORDERED: Metoprolol Tartrate 5 MG/5 ML VIAL ONE (16:05)
[2019-11-30] MEDS ORDERED: Metoprolol Tartrate 5 MG/5 ML VIAL IVP SCH (16:30)
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
[2019-11-30] MEDS ORDERED: Metoprolol Tartrate 5 MG/5 ML VIAL IVP PRN (16:35)
[2019-11-30 20:32] LABS: Actual Bicarbonate (HCO3a) 29.2 mEq/L (22-28); Base Excess (BEa) 5.7 mEq/L (-2.0 to +3.0); CO2 Tension 37.9 mmHg (35.0-45.0); Calcium, Ionized (arterial) 1.11 mmol/L (1.12-1.30); Carboxyhemoglobin (COHb) 0.9 gm% (0.0-3.0); Hemoglobin (Hb) 9.3 g/dL (14.0-18.0); Potassium - ABG Lab 3.72 mmol/L (3.70-5.30)
[2019-11-30 20:34] LABS: O2 Tension (PaO2), arterial 59.5 mmHg (80.0-100.0); Puncture Site A-LINE
[2019-11-30 20:35] LABS: ALV-art Gradient 285.275 mmHg (0-20)
[2019-11-30] MEDS: Metoprolol Tartrate 5 MG/5 ML VIAL IVP SCH (20:49)
[2019-11-30 21:07] LABS: Mean Corpuscular HGB CONC 33.4 g/dL (32.0-36.0); Mean Corpuscular Hemoglobin 30.5 pg (27.0-31.0); Mean Corpuscular Volume 91.6 fL (78.0-98.0); Platelet Count 52 thou/uL (130-400); RBC Distribution Width 15.5 % (11.5-14.5); Red Blood Cell (RBC) Count 2.94 mill/uL (4.70-6.10); White Blood Cell (WBC) Count 22.7 thou/uL (4.8-10.8)
[2019-11-30 21:12] LABS: INR-International Normal Ratio 1.7; PTT 30.6 sec (22.9-36.1)
[2019-11-30 21:24] LABS: Band 16 % (5-11); Hypochromia SLIGHT = 6-15 cells (100X) (0-5/hpf); Lymphocytes 4 % (21-51); MDiff Complete? YES; Monocytes 2 % (0-10); Neutrophil 78 % (42-75); Nucleated RBC 2 % (0); Platelet Morphology Comment Appears Adequate
[2019-11-30 21:25] LABS: Anion Gap 15 mmol/L (10-20); BUN (Urea Nitrogen) 31 mg/dL (8.9-20.6); Calc. Creatinine Clearance 174 mL/min (70-130); Calcium 8.2 mg/dL (7.8-10.44); Carbon Dioxide 27 mmol/L (22-29); Chloride 110 mmol/L (98-107); Estimated GFR-MDRD Greater than 90; Glucose 143 mg/dL (70-105); Magnesium 1.8 mg/dL (1.6-2.6); Potassium 3.7 mmol/L (3.5-5.1); Sodium 148 mmol/L (136-145)
[2019-11-30 21:28] LABS: Phosphorus 2.2 mg/dL (2.3-4.7)
[2019-11-30] MEDS ORDERED: Ibuprofen 100 MG/5 ML UDCUP PER TUBE PRN (21:42)
[2019-11-30 21:57] LABS: Lactic Acid 1.4 mmol/L (0.5-2.2)
[2019-11-30] MEDS ORDERED: Magnesium Sulfate 4 GM in Sodium Chloride 0.9% 250 ML 250 ML IVPB SCH (22:30)
[2019-11-30] MEDS ORDERED: Potassium Phosphate 30 MMOL in Sodium Chloride 0.9% 250 ML 250 ML IVPB SCH (22:30)
[2019-12-01] MEDS: Meropenem 2 GM, Admixture Fee 1 EACH in Sodium Chloride 0.9% 100 ML IVPB SCH ×3 (00:28→18:07)
[2019-12-01] MEDS: Metoprolol Tartrate 5 MG/5 ML VIAL IVP SCH ×9 (00:29→21:55)
[2019-12-01] MEDS: Propofol 1,000 MG/100 ML VIAL IV PRN ×3 (02:12→21:53)
[2019-12-01] MEDS: Metoclopramide HCl 10 MG/2 ML VIAL IVP SCH ×2 (02:13→13:42)
[2019-12-01] MEDS: Levalbuterol HCl 0.63 MG/3 ML NEB NEB SCH ×6 (02:41→21:46)
[2019-12-01] MEDS: niCARdipine 50 MG in Sodium Chloride 0.9% 250 ML 40 MG/230 ML BAG IVPB SCH (03:31)
[2019-12-01 03:34] LABS: INR-International Normal Ratio 1.7; PTT 31.1 sec (22.9-36.1)
[2019-12-01 03:41] LABS: ALT (SGPT) 100 U/L (8-55); AST (SGOT) 113 U/L (5-34); Albumin 3.2 g/dL (3.5-5.0); Alkaline Phosphatase 104 U/L (40-110); Bilirubin, Direct 0.7 mg/dL (0.1-0.3); Bilirubin, Total 1.9 mg/dL (0.2-1.2); Protein, Total 5.4 g/dL (6.0-8.3)
[2019-12-01 03:43] LABS: Lactic Acid 1.4 mmol/L (0.5-2.2)
[2019-12-01 03:47] LABS: ALT (SGPT) 102 U/L (8-55); AST (SGOT) 116 U/L (5-34); Albumin 3.2 g/dL (3.5-5.0); Alkaline Phosphatase 104 U/L (40-110); Anion Gap 11 mmol/L (10-20); BUN (Urea Nitrogen) 28 mg/dL (8.9-20.6); Bilirubin, Total 1.9 mg/dL (0.2-1.2); Calc. Creatinine Clearance 198 mL/min (70-130); Calcium 7.9 mg/dL (7.8-10.44); Carbon Dioxide 27 mmol/L (22-29); Chloride 110 mmol/L (98-107); Estimated GFR-MDRD Greater than 90; Globulin 2.2 g/dL (2.4-3.5); Glucose 159 mg/dL (70-105); Magnesium 2.6 mg/dL (1.6-2.6); Phosphorus 3.2 mg/dL (2.3-4.7); Potassium 4.1 mmol/L (3.5-5.1); Protein, Total 5.4 g/dL (6.0-8.3); Sodium 144 mmol/L (136-145)
[2019-12-01 03:49] LABS: Band 14 % (5-11); Hemoglobin 9.1 g/dL (14.0-18.0); Hypochromia SLIGHT = 6-15 cells (100X) (0-5/hpf); Lymphocytes 7 % (21-51); MDiff Complete? YES; Mean Corpuscular HGB CONC 34.1 g/dL (32.0-36.0); Mean Corpuscular Hemoglobin 31.2 pg (27.0-31.0); Mean Corpuscular Volume 91.8 fL (78.0-98.0); Mean Platelet Volume 9.3 fL (7.4-10.4); Metamyelocyte 1 % (0-0); Monocytes 3 % (0-10); Neutrophil 75 % (42-75); Platelet Count 58 thou/uL (130-400); Platelet Morphology Comment Appears Decreased; Polychromasia SLIGHT = 2-3 cells (100X) (0-2/hpf); RBC Distribution Width 15.1 % (11.5-14.5); Red Blood Cell (RBC) Count 2.91 mill/uL (4.70-6.10); White Blood Cell (WBC) Count 22.8 thou/uL (4.8-10.8)
[2019-12-01] MEDS: Vancomycin HCl 1.75 GM in Sodium Chloride 0.9% 500 ML IVPB SCH ×3 (04:56→21:53)
[2019-12-01] MEDS: fentaNYL Citrate/PF 2,000 MCG in Sodium Chloride 0.9% 60 ML IV SCH ×2 (05:32→23:52)
[2019-12-01] MEDS ORDERED: Calcium Chloride 1 GM/10 ML Abboject SYRINGE IVP SCH (06:45)
[2019-12-01] MEDS ORDERED: Calcium Chloride 13.6 MEQ in Sodium Chloride 0.9% 100 ML IVPB SCH (07:00)
[2019-12-01 07:16] LABS: Actual Bicarbonate (HCO3a) 25.7 mEq/L (22-28); Base Excess (BEa) 1.5 mEq/L (-2.0 to +3.0); CO2 Tension 38.8 mmHg (35.0-45.0); Calcium, Ionized (arterial) 1.16 mmol/L (1.12-1.30); Carboxyhemoglobin (COHb) 0.7 gm% (0.0-3.0); Hemoglobin (Hb) 9.7 g/dL (14.0-18.0); O2 Tension (PaO2), arterial 67.2 mmHg (80.0-100.0); Potassium - ABG Lab 3.86 mmol/L (3.70-5.30); pH, Arterial 7.44 (7.35-7.45)
[2019-12-01 07:21] LABS: Puncture Site ALINE
[2019-12-01] MEDS ORDERED: Phytonadione 10 MG/ML AMP PO SCH (08:15)
--- NOTE | 2019-12-01 08:21 | RAD ---
EXAM: XR Chest 1 View Portable PROVIDED CLINICAL HISTORY: On ventilator. Thoracostomy tube in place. COMPARISON: 11/30/2019 FINDINGS: Endotracheal tube, nasogastric tube, right-sided vascular catheter, left-sided PICC line, and bilater al thoracostomy tubes remain in place. There is generalized volume loss right hemithorax. Interstitial and patchy parenchymal opacities are again seen at each lung base greater on the right w ith probable small pleural effusion persisting. Tiny right apical pneumothorax is again seen. Right-sided chest wall deformity and rib fractures is again seen with skin clips seen laterally in th e subcutaneous soft tissues right lower chest and upper abdomen. IMPRESSION: Lines and tubes stable in position including bilateral thoracostomy tubes. Tiny right apical pneumoth orax is again present. Airspace opacities bilaterally are overall similar to prior exam as well.
[2019-12-01 09:16] LABS: CK (CPK) 7397 U/L (30-200)
[2019-12-01] MEDS ORDERED: Refresh Lacri-lube Opth Oint 7 GM TUBE FS PRN (09:28)
[2019-12-01] MEDS ORDERED: Vecuronium 10 MG VIAL IV SCH ×2 (09:30)
[2019-12-01] MEDS ORDERED: Vecuronium 10 MG VIAL ONE (09:39)
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
[2019-12-01] MEDS: Micafungin 100 MG in Sodium Chloride 0.9% 100 ML IVPB SCH (12:20)
[2019-12-01] MEDS: Pantoprazole 40 MG VIAL IVP SCH (12:27)
[2019-12-01] MEDS: HYDROmorphone 0.5 MG/0.5 ML SYRINGE SLOW IVP SCH (12:28)
[2019-12-01] MEDS: Saccharomyces boulardii 250 MG CAP PO SCH ×2 (12:28→21:54)
[2019-12-01] MEDS: cloNIDine 0.3 MG TAB PO SCH ×3 (12:33→17:33)
[2019-12-01 12:58] LABS: Vancomycin, Trough 10.3 ug/mL
[2019-12-01] MEDS ORDERED: Magnevist 469MG/ML 20 ML VIAL ONE (13:35)
[2019-12-01 14:38] LABS: Hemoglobin 8.9 g/dL (14.0-18.0); Mean Corpuscular Hemoglobin 30.6 pg (27.0-31.0); Mean Corpuscular Volume 92.9 fL (78.0-98.0); Mean Platelet Volume 9.4 fL (7.4-10.4); Platelet Count 60 thou/uL (130-400); Red Blood Cell (RBC) Count 2.92 mill/uL (4.70-6.10)
[2019-12-01 14:50] LABS: Lactic Acid 1.1 mmol/L (0.5-2.2)
[2019-12-01 14:56] LABS: Anion Gap 12 mmol/L (10-20); BUN (Urea Nitrogen) 29 mg/dL (8.9-20.6); Calc. Creatinine Clearance 217 mL/min (70-130); Carbon Dioxide 27 mmol/L (22-29); Chloride 111 mmol/L (98-107); Estimated GFR-MDRD Greater than 90; Glucose 126 mg/dL (70-105); Magnesium 1.9 mg/dL (1.6-2.6); Phosphorus 3.3 mg/dL (2.3-4.7); Potassium 4.7 mmol/L (3.5-5.1); Sodium 145 mmol/L (136-145)
[2019-12-01 15:00] LABS: Anisocytosis SLIGHT = 6-15 cells (100X) (0-5/hpf); Band 9 % (5-11); Eosinophils 1 % (0-10); Lymphocytes 6 % (21-51); MDiff Complete? YES; Metamyelocyte 1 % (0-0); Monocytes 1 % (0-10); Myelocyte 2 % (0-0); Neutrophil 80 % (42-75); Nucleated RBC 1 % (0); Ovalocytes SLIGHT = 2-5 cells (100X) (0-1/hpf); Platelet Morphology Comment Appears Decreased; Poikilocytosis SLIGHT = 6-15 cells (100X) (0-5/hpf); Polychromasia MODERATE = 3-4 cells (100X) (0-2/hpf); Reflex for Review?? YES; Schistocytes MODERATE= 6-15 cells (100X) (0-1/hpf); Toxic Granulation MODERATE; Vacuoles SLIGHT
[2019-12-01] MEDS ORDERED: Fentanyl 250 MCG/5 ML VIAL ONE (15:02)
[2019-12-01] MEDS ORDERED: Albumin 5% 500 ML ONE (15:25)
[2019-12-01] MEDS ORDERED: Fentanyl 100 MCG/2 ML VIAL ONE (15:25)
[2019-12-01] MEDS ORDERED: Labetalol HCl 100 MG/20 ML VIAL SLOW IVP SCH (17:30)
[2019-12-01] MEDS: Dextrose 5 %-0.45 % NaCl 1,000 ML IV SCH (17:36)
[2019-12-01] MEDS: Furosemide 20 MG/2 ML VIAL SLOW IVP SCH (18:10)
[2019-12-01 18:18] LABS: Platelet Count 60 thou/uL (130-400)
[2019-12-01 18:22] LABS: Fibrinogen 223 mg/dL (253-463); INR-International Normal Ratio 1.5; Prothrombin Time 18.9 sec (12.0-14.7)
[2019-12-01] MEDS ORDERED: Ketorolac Tromethamine 30 MG/ML VIAL ONE (18:25)
--- NOTE | 2019-12-01 18:28 | ULT ---
RENAL ULTRASOUND WITH DOPPLER: 12/01/19 Sandoval scale images of both kidneys obtained. Doppler studies were performed with color Doppler and spe ctral analysis, however, adequate Doppler studies of the renal arteries were unable to be obtained. Blood flow to both kidneys was documented. Left kidney measures 12 cm length and right kidney measures 13.7 cm in length. No hydronephrosis. Cor tical thickness and echogenicity appears normal. Tiny amount of fluid in Ely's pouch on the right was noted. The bladder is contracted and not evaluated. IMPRESSION: 1. Unremarkable renal ultrasound. 2. Doppler studies were unable to be obtained. Blood flow to both kidneys was documented. POS: AGW
[2019-12-01] MEDS ORDERED: Ketorolac Tromethamine 30 MG/ML VIAL IVP SCH (18:30)
[2019-12-01 18:34] LABS: FSP-Qualitative ABNORMAL (Normal); FSP-Semiquantitative >320 mcg/mL (Less than 5)
[2019-12-01 18:38] LABS: D-Dimer Test Greater than 20.00 *mcg/mL (0.27-0.43)
[2019-12-01] MEDS ORDERED: Acetaminophen 325 MG TAB PO SCH (19:00)
[2019-12-01 19:28] LABS: Actual Bicarbonate (HCO3a) 27.5 mEq/L (22-28); Base Excess (BEa) 2.8 mEq/L (-2.0 to +3.0); CO2 Tension 42.6 mmHg (35.0-45.0); Calcium, Ionized (arterial) 1.05 mmol/L (1.12-1.30); Carboxyhemoglobin (COHb) 1.4 gm% (0.0-3.0); Hemoglobin (Hb) 10.2 g/dL (14.0-18.0); Potassium - ABG Lab 4.62 mmol/L (3.70-5.30); pH, Arterial 7.43 (7.35-7.45)
[2019-12-01] MEDS: Ketorolac Tromethamine 30 MG/ML VIAL IVP SCH (19:33)
[2019-12-01 19:35] LABS: Puncture Site A-LINE
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
[2019-12-02] MEDS: Acetaminophen 325 MG TAB PO SCH ×4 (00:44→17:20)
[2019-12-02] MEDS: cloNIDine 0.2 MG TAB PO SCH ×3 (00:44→12:31)
[2019-12-02] MEDS: Metoprolol Tartrate 5 MG/5 ML VIAL IVP SCH ×10 (00:45→22:27)
[2019-12-02] MEDS: Dextrose 5 %-0.45 % NaCl 1,000 ML IV SCH ×3 (01:34→17:21)
[2019-12-02] MEDS: Meropenem 2 GM, Admixture Fee 1 EACH in Sodium Chloride 0.9% 100 ML IVPB SCH ×3 (01:35→17:19)
[2019-12-02] MEDS: Ketorolac Tromethamine 30 MG/ML VIAL IVP SCH ×6 (01:41→17:25)
[2019-12-02] MEDS: Furosemide 20 MG/2 ML VIAL SLOW IVP SCH (01:41)
[2019-12-02] MEDS: Levalbuterol HCl 0.63 MG/3 ML NEB NEB SCH ×6 (02:21→22:30)
[2019-12-02] MEDS: Propofol 1,000 MG/100 ML VIAL IV PRN ×2 (03:49→08:52)
[2019-12-02 05:10] LABS: INR-International Normal Ratio 1.4; Prothrombin Time 17.9 sec (12.0-14.7)
[2019-12-02] MEDS: Vancomycin HCl 1.75 GM in Sodium Chloride 0.9% 500 ML IVPB SCH ×3 (05:14→21:37)
[2019-12-02 05:20] LABS: ALT (SGPT) 81 U/L (8-55); AST (SGOT) 91 U/L (5-34); Albumin 2.8 g/dL (3.5-5.0); Alkaline Phosphatase 103 U/L (40-110); Bilirubin, Direct 0.5 mg/dL (0.1-0.3); Bilirubin, Total 1.3 mg/dL (0.2-1.2); Protein, Total 4.9 g/dL (6.0-8.3)
[2019-12-02 05:27] LABS: Anion Gap 11 mmol/L (10-20); BUN (Urea Nitrogen) 39 mg/dL (8.9-20.6); Calc. Creatinine Clearance 182 mL/min (70-130); Calcium 7.3 mg/dL (7.8-10.44); Carbon Dioxide 27 mmol/L (22-29); Chloride 112 mmol/L (98-107); Estimated GFR-MDRD Greater than 90; Glucose 138 mg/dL (70-105); Magnesium 2.1 mg/dL (1.6-2.6); Phosphorus 2.6 mg/dL (2.3-4.7); Potassium 4.3 mmol/L (3.5-5.1); Sodium 146 mmol/L (136-145)
[2019-12-02 05:34] LABS: Band 6 % (5-11); Eosinophils 1 % (0-10); Hemoglobin 8.7 g/dL (14.0-18.0); Lymphocytes 3 % (21-51); MDiff Complete? YES; Mean Corpuscular HGB CONC 32.9 g/dL (32.0-36.0); Mean Corpuscular Hemoglobin 30.8 pg (27.0-31.0); Mean Corpuscular Volume 93.5 fL (78.0-98.0); Mean Platelet Volume 14.3 fL (7.4-10.4); Metamyelocyte 3 % (0-0); Monocytes 5 % (0-10); Neutrophil 82 % (42-75); Platelet Count 68 thou/uL (130-400); Platelet Morphology Comment Appears Decreased; RBC Distribution Width 16.1 % (11.5-14.5); RBC Morphology Normal; Red Blood Cell (RBC) Count 2.84 mill/uL (4.70-6.10); White Blood Cell (WBC) Count 23.6 thou/uL (4.8-10.8)
[2019-12-02 06:51] LABS: Actual Bicarbonate (HCO3a) 27.4 mEq/L (22-28); Base Excess (BEa) 3.5 mEq/L (-2.0 to +3.0); CO2 Tension 38.8 mmHg (35.0-45.0); Calcium, Ionized (arterial) 1.08 mmol/L (1.12-1.30); Carboxyhemoglobin (COHb) 1.3 gm% (0.0-3.0); Hemoglobin (Hb) 9.3 g/dL (14.0-18.0); O2 Tension (PaO2), arterial 70.7 mmHg (80.0-100.0); Potassium - ABG Lab 4.09 mmol/L (3.70-5.30); pH, Arterial 7.47 (7.35-7.45)
[2019-12-02 06:52] LABS: Puncture Site ALINE
--- NOTE | 2019-12-02 08:06 | RAD ---
PORTABLE CHEST: HISTORY: Assess ET tube. COMPARISON: Film earlier today. FINDINGS: ET tube remains in place above hermila. There are 2 NG tubes which are now noted in place. An additional NG tube has been placed since the e arlier film. Both tubes pass through the EG junction. The distal ends of these tubes are not imaged on this exam. The chest tubes are again noted. The ce ntral lines are unchanged. The right lower lung infiltrate is again noted. No acute change in the a ppearance of the chest. POS: AGW
[2019-12-02] MEDS: Micafungin 100 MG in Sodium Chloride 0.9% 100 ML IVPB SCH (08:51)
[2019-12-02] MEDS: HYDROmorphone 0.5 MG/0.5 ML SYRINGE SLOW IVP SCH (09:38)
[2019-12-02] MEDS ORDERED: Pregabalin 50 MG CAP PO SCH (09:45)
[2019-12-02] MEDS ORDERED: HYDROmorphone 0.5 MG/0.5 ML SYRINGE SLOW IVP SCH (09:45)
[2019-12-02] MEDS ORDERED: HYDROmorphone 0.5 MG/0.5 ML SYRINGE SLOW IVP PRN (10:08)
[2019-12-02 10:27] LABS: CK (CPK) 5232 U/L (30-200)
[2019-12-02] MEDS: Saccharomyces boulardii 250 MG CAP PO SCH ×2 (10:30→21:39)
[2019-12-02] MEDS: Pantoprazole 40 MG VIAL IVP SCH (10:31)
[2019-12-02 11:02] LABS: Actual Bicarbonate (HCO3a) 27.5 mEq/L (22-28); Base Excess (BEa) 2.7 mEq/L (-2.0 to +3.0); CO2 Tension 43.3 mmHg (35.0-45.0); Calcium, Ionized (arterial) 1.09 mmol/L (1.12-1.30); Carboxyhemoglobin (COHb) 1.1 gm% (0.0-3.0); Hemoglobin (Hb) 9.6 g/dL (14.0-18.0); O2 Tension (PaO2), arterial 91.4 mmHg (80.0-100.0); Potassium - ABG Lab 4.23 mmol/L (3.70-5.30); Puncture Site ALINE; pH, Arterial 7.42 (7.35-7.45)
[2019-12-02 11:03] LABS: ALV-art Gradient 279.275 mmHg (0-20)
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
[2019-12-02] MEDS: HYDROmorphone 10 mg/100 ml CADD IVPB PRN ×2 (11:45→22:16)
--- NOTE | 2019-12-02 13:25 | RAD ---
PORTABLE CHEST: HISTORY: Respiratory distress. COMPARISON: A 12/01/2019 exam. FINDINGS: Endotracheal and NG tube, Dobbhoff feeding tube, and right-sided central line and left-sided PICC lik e all appear stable in position. There is increasing opacification of the right lung base. There is obliteration of the right hemidia phragm. Right chest tubes remain unchanged in position. There are no signs of any right-sided pneum othorax. There are multiple right-sided rib fractures. A left chest tube is place. It is difficult to show lung markings in the left apex, but I do not see any pleural reflection that would suggest a pneumothorax. IMPRESSION: Some worsening [id number] in the right lung base which could indicate some effusion or worsening infiltrate or contusion. POS: OFF
--- NOTE | 2019-12-02 13:30 | RAD ---
KUB: HISTORY: Evaluate tube placement. FINDINGS: There is an NG tube which would be in the body of the stomach. A Dobbhoff feeding tube is seen. The position of this would suggest it is in the proximal jejunum. Surgical favio are seen over the mi dline. IMPRESSION: Dobbhoff and nasogastric tubes as noted above. POS: OFF
[2019-12-02] MEDS: Pregabalin 50 MG CAP PO SCH ×2 (14:41→21:39)
[2019-12-02] MEDS: cloNIDine 0.1 MG TAB PO SCH (17:20)
[2019-12-03] MEDS: Acetaminophen 325 MG TAB PO SCH ×5 (00:02→23:00)
[2019-12-03] MEDS: cloNIDine 0.1 MG TAB PO SCH ×5 (00:02→23:00)
[2019-12-03] MEDS: Meropenem 2 GM, Admixture Fee 1 EACH in Sodium Chloride 0.9% 100 ML IVPB SCH ×3 (01:29→17:33)
[2019-12-03] MEDS: Dextrose 5 %-0.45 % NaCl 1,000 ML IV SCH ×4 (01:29→22:59)
[2019-12-03] MEDS: Metoprolol Tartrate 5 MG/5 ML VIAL IVP SCH ×3 (01:29→09:51)
[2019-12-03] MEDS: Levalbuterol HCl 0.63 MG/3 ML NEB NEB SCH ×6 (02:26→21:52)
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
[2019-12-03 04:32] LABS: Anion Gap 12 mmol/L (10-20); BUN (Urea Nitrogen) 35 mg/dL (8.9-20.6); Calc. Creatinine Clearance 184 mL/min (70-130); Calcium 7.6 mg/dL (7.8-10.44); Carbon Dioxide 30 mmol/L (22-29); Chloride 111 mmol/L (98-107); Estimated GFR-MDRD Greater than 90; Glucose 141 mg/dL (70-105); Magnesium 2.1 mg/dL (1.6-2.6); Phosphorus 1.9 mg/dL (2.3-4.7); Potassium 4.5 mmol/L (3.5-5.1); Sodium 148 mmol/L (136-145)
[2019-12-03] MEDS: Vancomycin HCl 1.75 GM in Sodium Chloride 0.9% 500 ML IVPB SCH (04:59)
[2019-12-03] MEDS: niCARdipine 50 MG in Sodium Chloride 0.9% 250 ML 40 MG/230 ML BAG IVPB SCH ×2 (05:06→09:47)
[2019-12-03 06:43] LABS: Actual Bicarbonate (HCO3a) 30.8 mEq/L (22-28); Base Excess (BEa) 5.2 mEq/L (-2.0 to +3.0); CO2 Tension 51.3 mmHg (35.0-45.0); Calcium, Ionized (arterial) 1.11 mmol/L (1.12-1.30); Carboxyhemoglobin (COHb) 1.1 gm% (0.0-3.0); Hemoglobin (Hb) 8.7 g/dL (14.0-18.0); O2 Tension (PaO2), arterial 64.3 mmHg (80.0-100.0); Potassium - ABG Lab 4.43 mmol/L (3.70-5.30)
[2019-12-03 06:45] LABS: Puncture Site LRA
[2019-12-03 06:46] LABS: ALV-art Gradient 263.725 mmHg (0-20)
[2019-12-03] MEDS: HYDROmorphone 10 mg/100 ml CADD IVPB PRN ×2 (07:06→16:33)
[2019-12-03] MEDS ORDERED: Potassium Phosphate 30 MMOL in Sodium Chloride 0.9% 500 ML IVPB SCH (07:15)
[2019-12-03] MEDS ORDERED: Calcium Gluconate 4.6 MEQ in Sodium Chloride 0.9% 100 ML IVPB SCH (07:49)
[2019-12-03 08:08] LABS: Hemoglobin 8.2 g/dL (14.0-18.0); Mean Corpuscular HGB CONC 32.1 g/dL (32.0-36.0); Mean Corpuscular Hemoglobin 30.9 pg (27.0-31.0); Mean Corpuscular Volume 96.1 fL (78.0-98.0); Mean Platelet Volume 11.6 fL (7.4-10.4); Platelet Count 124 thou/uL (130-400); RBC Distribution Width 16.1 % (11.5-14.5); Red Blood Cell (RBC) Count 2.65 mill/uL (4.70-6.10); White Blood Cell (WBC) Count 29.1 thou/uL (4.8-10.8)
[2019-12-03 08:13] LABS: Bilirubin Negative (Negative); Blood, Urine 3+ (Negative); Clarity Extra Turbid (Clear); Glucose, Urine (Dipstick) 50 mg/dL (Negative); Ketone, Urine Negative (Negative); Leukocyte Negative Leu/uL (Negative); Nitrite Negative (Negative); Protein, Urine (Dipstick) 70 mg/dL (Neg-Trace); RBC/HPF 0-3 HPF (0-3); Specific Gravity, Urine 1.025 (1.002-1.036); Squamous Epithelial None Seen HPF (0-3); Urobilinogen Normal mg/dL (Less than 2)
[2019-12-03 08:15] LABS: Bacteria/HPF 1+ HPF (None Seen)
[2019-12-03 08:16] LABS: Urine Culture Reflex Yes Yes
[2019-12-03 08:35] LABS: Anisocytosis SLIGHT = 6-15 cells (100X) (0-5/hpf); Hypersemented Neutrophil SLIGHT; Hypochromia SLIGHT = 6-15 cells (100X) (0-5/hpf); Lymphocytes 2 % (21-51); MDiff Complete? YES; Monocytes 14 % (0-10); Neutrophil 84 % (42-75); Platelet Morphology Comment Appears Adequate
[2019-12-03] MEDS: Pantoprazole 40 MG VIAL IVP SCH (09:46)
[2019-12-03] MEDS: Saccharomyces boulardii 250 MG CAP PO SCH ×2 (09:46→19:39)
[2019-12-03] MEDS: Micafungin 100 MG in Sodium Chloride 0.9% 100 ML IVPB SCH (09:46)
[2019-12-03] MEDS: Pregabalin 50 MG CAP PO SCH ×3 (09:47→19:38)
[2019-12-03] MEDS ORDERED: Midazolam HCl 2 mg/2 ml Vial ONE (11:11)
[2019-12-03] MEDS ORDERED: Fentanyl 100 MCG/2 ML VIAL ONE (11:14)
[2019-12-03] MEDS ORDERED: Midazolam HCl 2 mg/2 ml Vial SLOW IVP SCH (11:15)
[2019-12-03] MEDS ORDERED: Fentanyl 100 MCG/2 ML VIAL SLOW IVP SCH (11:15)
--- NOTE | 2019-12-03 11:29 | RAD ---
PORTABLE CHEST: COMPARISON: Prior day's study. HISTORY: Followup chest tube placement. COMPARISON: The prior day's study. FINDINGS: Right and left-sided chest tubes remain in place. On this examination, there appears to be a tiny ap ical pneumothorax. Right-sided rib fractures are again noted. Parenchymal lung changes in the right lung are stable. Some of the changes in the left mid lung field are more prominent than on the prio r study. IMPRESSION: 1. Small right apical pneumothorax. 2. Slight increased density in the left mid lung field as compared to the prior examination. Some o f the difference is technique related. Continued followup would be recommended. 3. Right-sided rib and clavicle fracture again demonstrated. POS: OFF
[2019-12-03 12:34] LABS: Actual Bicarbonate (HCO3a) 34.4 mEq/L (22-28); Base Excess (BEa) 6.9 mEq/L (-2.0 to +3.0); Calcium, Ionized (arterial) 1.12 mmol/L (1.12-1.30); Carboxyhemoglobin (COHb) 1.5 gm% (0.0-3.0); Hemoglobin (Hb) 8.5 g/dL (14.0-18.0); O2 Tension (PaO2), arterial 84.4 mmHg (80.0-100.0); Potassium - ABG Lab 5.08 mmol/L (3.70-5.30); pH, Arterial 7.31 (7.35-7.45)
[2019-12-03 12:36] LABS: ALV-art Gradient 220.125 mmHg (0-20); CO2 Tension 70.1 mmHg (35.0-45.0); Puncture Site RRA
[2019-12-03 12:40] LABS: Vancomycin, Trough 8.5 ug/mL
[2019-12-03] MEDS: Ibuprofen 600 MG TAB PO SCH ×2 (13:00→22:24)
[2019-12-03] MEDS ORDERED: Vancomycin HCl 1.75 GM in Sodium Chloride 0.9% 500 ML IVPB SCH (14:00)
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
[2019-12-03] MEDS: Venlafaxine HCl 25 MG TAB PO SCH ×2 (14:59→19:39)
[2019-12-03] MEDS: Labetalol HCl 100 MG/20 ML VIAL SLOW IVP PRN ×3 (15:51→22:20)
[2019-12-03] MEDS: Metoprolol Tartrate 25 MG TAB PER TUBE SCH ×2 (17:31→23:02)
[2019-12-03] MEDS ORDERED: Amlodipine 10 MG TAB PO SCH (18:15)
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
[2019-12-03] MEDS ORDERED: acetaZOLAMIDE Sodium 500 mg Vial IVP SCH (21:00)
[2019-12-04] MEDS: Meropenem 2 GM, Admixture Fee 1 EACH in Sodium Chloride 0.9% 100 ML IVPB SCH ×3 (01:43→17:55)
[2019-12-04] MEDS: Levalbuterol HCl 0.63 MG/3 ML NEB NEB SCH ×6 (02:15→21:41)
[2019-12-04] MEDS: HYDROmorphone 10 mg/100 ml CADD IVPB PRN ×3 (02:38→23:58)
[2019-12-04] MEDS: Labetalol HCl 100 MG/20 ML VIAL SLOW IVP PRN (03:03)
[2019-12-04 04:32] LABS: Band 20 % (5-11); Eosinophils 2 % (0-10); Hemoglobin 8.2 g/dL (14.0-18.0); Lymphocytes 3 % (21-51); MDiff Complete? YES; Mean Corpuscular HGB CONC 31.1 g/dL (32.0-36.0); Mean Corpuscular Hemoglobin 30.6 pg (27.0-31.0); Mean Corpuscular Volume 98.6 fL (78.0-98.0); Mean Platelet Volume 10.7 fL (7.4-10.4); Metamyelocyte 3 % (0-0); Monocytes 4 % (0-10); Neutrophil 68 % (42-75); Platelet Count 167 thou/uL (130-400); Platelet Morphology Comment Appears Adequate; RBC Distribution Width 16.5 % (11.5-14.5); Red Blood Cell (RBC) Count 2.67 mill/uL (4.70-6.10); White Blood Cell (WBC) Count 26.5 thou/uL (4.8-10.8)
[2019-12-04 04:36] LABS: Anion Gap 10 mmol/L (10-20); BUN (Urea Nitrogen) 24 mg/dL (8.9-20.6); CK (CPK) 1621 U/L (30-200); Calc. Creatinine Clearance 230 mL/min (70-130); Calcium 7.9 mg/dL (7.8-10.44); Carbon Dioxide 24 mmol/L (22-29); Chloride 114 mmol/L (98-107); Estimated GFR-MDRD Greater than 90; Glucose 135 mg/dL (70-105); Phosphorus 2.2 mg/dL (2.3-4.7); Potassium 4.9 mmol/L (3.5-5.1); Sodium 143 mmol/L (136-145)
[2019-12-04] MEDS ORDERED: Sodium Phosphate 30 MMOL in Sodium Chloride 0.9% 250 ML 250 ML IVPB SCH (05:00)
[2019-12-04] MEDS: Ibuprofen 600 MG TAB PO SCH ×3 (05:04→21:11)
[2019-12-04] MEDS: Metoprolol Tartrate 25 MG TAB PER TUBE SCH ×4 (05:05→23:57)
[2019-12-04] MEDS: Acetaminophen 325 MG TAB PO SCH ×4 (05:05→23:57)
[2019-12-04] MEDS: cloNIDine 0.1 MG TAB PO SCH ×4 (05:05→23:57)
[2019-12-04 07:12] LABS: Actual Bicarbonate (HCO3a) 25.1 mEq/L (22-28); Base Excess (BEa) -2.5 mEq/L (-2.0 to +3.0); CO2 Tension 59.2 mmHg (35.0-45.0); Calcium, Ionized (arterial) 1.23 mmol/L (1.12-1.30); Carboxyhemoglobin (COHb) 1.5 gm% (0.0-3.0); Hemoglobin (Hb) 9.3 g/dL (14.0-18.0); O2 Tension (PaO2), arterial 101.7 mmHg (80.0-100.0)
[2019-12-04 07:13] LABS: Puncture Site LRA; pH, Arterial 7.25 (7.35-7.45)
[2019-12-04] MEDS ORDERED: Midazolam HCl 5 mg/ml Vial SLOW IVP PRN ×2 (07:30)
[2019-12-04] MEDS ORDERED: Vecuronium 10 MG VIAL IV SCH (07:30)
[2019-12-04] MEDS ORDERED: Lidocaine 1% w/Epinephrine 1:100K 20 ML VIAL FS SCH (07:30)
[2019-12-04] MEDS ORDERED: Fentanyl 100 MCG/2 ML VIAL SLOW IVP PRN ×2 (07:31)
[2019-12-04] MEDS: Micafungin 100 MG in Sodium Chloride 0.9% 100 ML IVPB SCH (07:57)
[2019-12-04] MEDS: Saccharomyces boulardii 250 MG CAP PO SCH ×2 (07:58→21:10)
[2019-12-04] MEDS: Pantoprazole 40 MG VIAL IVP SCH (07:58)
[2019-12-04] MEDS: Pregabalin 50 MG CAP PO SCH ×3 (07:58→21:10)
[2019-12-04] MEDS: Venlafaxine HCl 25 MG TAB PO SCH ×3 (07:59→21:11)
[2019-12-04] MEDS: Amlodipine 10 MG TAB PO SCH (07:59)
--- NOTE | 2019-12-04 08:46 | RAD ---
CHEST 1 VIEW: Date: 12/04/2019 INDICATION: History of chest tube placement. COMPARISON: Prior exam dated 12/03/2019. FINDINGS: Small right apical pneumothorax persists. Right-sided thoracostomy tube, ET tube, gastric catheter, f eeding tube, and left-sided chest tube appear similar appearing. The parenchymal opacity involving alonso th lower lobes persists. Osseous structures appear similar appearing. IMPRESSION: 1. Largely stable examination with small residual right pneumothorax. Bilateral thoracostomy tubes a re similar appearing. Other tubes and lines as above. 2. Persistent parenchymal opacities in both lower lobes. POS: [facility]
[2019-12-04] MEDS ORDERED: Propofol 500 MG/50 ML VIAL IV PRN (08:50)
[2019-12-04] MEDS ORDERED: Propofol 1,000 MG/100 ML VIAL IV ONE (09:07)
[2019-12-04] MEDS ORDERED: Propofol 1,000 MG/100 ML VIAL IV PRN (09:08)
[2019-12-04] MEDS: acetaZOLAMIDE Sodium 500 mg Vial IVP SCH (09:51)
[2019-12-04] MEDS ORDERED: Sterile Water 10 ML ONE (10:05)
[2019-12-04] MEDS ORDERED: Fentanyl 100 MCG/2 ML VIAL SLOW IVP SCH ×3 (10:15→10:17)
[2019-12-04] MEDS: Dextrose 5 %-0.45 % NaCl 1,000 ML IV SCH ×2 (10:20→17:58)
[2019-12-04] MEDS ORDERED: CEFAZOLIN 2 GM in Premix Bag 1 BAG IVPB SCH (12:00)
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
[2019-12-04] MEDS ORDERED: HYDROmorphone 10 mg/100 ml CADD IVPB PRN (13:21)
[2019-12-04] MEDS: Acetylcysteine 10% 100 MG/ML 30 ml Vial NEB SCH ×3 (14:37→21:41)
--- NOTE | 2019-12-04 19:22 | ULT ---
EXAM: Bilateral lower extremity venous ultrasound HISTORY: Bilateral artery swelling. COMPARISON: None TECHNIQUE: Multiplanar grayscale and color Doppler images were obtained in a bilateral lower extremit y venous ultrasound. Spectral analysis of the Doppler waveforms were performed. FINDINGS: The bilateral common femoral vein, profunda femoral veins, superficial femoral veins, and p opliteal veins are normal in appearance without visible thrombus. These vessels demonstrate normal compression, flow, and augmentation. The bilateral posterior tibial veins, profunda femoral veins and greater saphenous veins are patent w ithout evidence of DVT. IMPRESSION: No evidence of DVT in the left or right lower extremity.
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
--- NOTE | 2019-12-04 20:33 | ULT ---
Exam: Left upper extremity venous ultrasound with Doppler HISTORY: Left upper extremity swelling. Patient has a PICC line. Comparison none TECHNIQUE: Grayscale, color flow, Doppler imaging and spectral waveform analysis of the left upper ex tremity venous system FINDINGS: Intrajugular vein compresses and has flow The distal subclavian vein demonstrates echogenic thrombus with at least partial occlusion. There is thrombus in the axillary vein with partial occlusion. Clot extends into the proximal brachial vein. PICC line is noted in the midportion of the brachial vein. There is clot in the basilic vein and ceph alic vein with little to no flow. Ulnar vein and radial vein compresses and has flow There is associated soft tissue edema. 1. Left upper extremity thrombus involving the subclavian vein, axillary vein and brachial vein. PICC line enters the midportion of the brachial vein. Clot extends into the basilic and cephalic vein. 2. Associated soft tissue edema.
[2019-12-05] MEDS: Meropenem 2 GM, Admixture Fee 1 EACH in Sodium Chloride 0.9% 100 ML IVPB SCH ×3 (02:13→19:05)
[2019-12-05] MEDS: Dextrose 5 %-0.45 % NaCl 1,000 ML IV SCH ×3 (02:13→17:50)
[2019-12-05] MEDS: Acetylcysteine 10% 100 MG/ML 30 ml Vial NEB SCH ×6 (02:18→22:21)
[2019-12-05] MEDS: Levalbuterol HCl 0.63 MG/3 ML NEB NEB SCH ×6 (02:19→22:21)
[2019-12-05 04:50] LABS: Band 4 % (5-11); Eosinophils 2 % (0-10); Hypochromia SLIGHT = 6-15 cells (100X) (0-5/hpf); MDiff Complete? YES; Mean Corpuscular HGB CONC 32.3 g/dL (32.0-36.0); Mean Corpuscular Hemoglobin 31.6 pg (27.0-31.0); Mean Corpuscular Volume 97.8 fL (78.0-98.0); Mean Platelet Volume 9.5 fL (7.4-10.4); Monocytes 10 % (0-10); Neutrophil 84 % (42-75); Platelet Count 213 thou/uL (130-400); Platelet Morphology Comment Appears Adequate; RBC Distribution Width 16.3 % (11.5-14.5); Red Blood Cell (RBC) Count 2.51 mill/uL (4.70-6.10); White Blood Cell (WBC) Count 22.9 thou/uL (4.8-10.8)
[2019-12-05 04:57] LABS: Anion Gap 9 mmol/L (10-20); BUN (Urea Nitrogen) 24 mg/dL (8.9-20.6); Calc. Creatinine Clearance 211 mL/min (70-130); Calcium 7.9 mg/dL (7.8-10.44); Carbon Dioxide 28 mmol/L (22-29); Chloride 111 mmol/L (98-107); Estimated GFR-MDRD Greater than 90; Glucose 137 mg/dL (70-105); Magnesium 1.8 mg/dL (1.6-2.6); Potassium 4.2 mmol/L (3.5-5.1); Sodium 144 mmol/L (136-145)
[2019-12-05] MEDS: Metoprolol Tartrate 25 MG TAB PER TUBE SCH ×4 (05:02→23:37)
[2019-12-05] MEDS: cloNIDine 0.1 MG TAB PO SCH ×4 (05:02→23:36)
[2019-12-05] MEDS: Acetaminophen 325 MG TAB PO SCH ×4 (05:02→23:37)
[2019-12-05] MEDS: Ibuprofen 600 MG TAB PO SCH ×3 (05:13→21:35)
[2019-12-05] MEDS ORDERED: Sodium Phosphate 30 MMOL in Sodium Chloride 0.9% 250 ML 250 ML IVPB SCH (05:45)
--- NOTE | 2019-12-05 08:53 | RAD ---
PORTABLE CHEST: HISTORY: Chest tube assessment. COMPARISON: 12/04/2019. FINDINGS: Tracheostomy device is noted. NG tube. There are bilateral chest tubes. A tiny right apical pneumo thorax. Hazy infiltrates in both lower lungs. Elevated right hemidiaphragm. Evidence of right effu niyah. IMPRESSION: Not significantly changed from yesterday. POS: [facility]
[2019-12-05] MEDS ORDERED: Magnesium 2 GM/50 ML 2 GM in Premix Bag 1 BAG IVPB SCH ×2 (09:15→19:00)
[2019-12-05] MEDS: HYDROmorphone 10 mg/100 ml CADD IVPB PRN (10:06)
[2019-12-05] MEDS: Micafungin 100 MG in Sodium Chloride 0.9% 100 ML IVPB SCH (10:08)
[2019-12-05] MEDS: Pantoprazole 40 MG VIAL IVP SCH (10:08)
[2019-12-05] MEDS: Pregabalin 50 MG CAP PO SCH ×3 (10:09→19:50)
[2019-12-05] MEDS: Saccharomyces boulardii 250 MG CAP PO SCH ×2 (10:09→19:50)
[2019-12-05] MEDS: acetaZOLAMIDE Sodium 500 mg Vial IVP SCH (10:09)
[2019-12-05] MEDS: Amlodipine 10 MG TAB PO SCH (10:09)
[2019-12-05] MEDS: Venlafaxine HCl 25 MG TAB PO SCH ×3 (10:10→19:51)
[2019-12-05] MEDS: Scopolamine 1.5 mg/72 hour Patch TD SCH (11:29)
[2019-12-05] MEDS ORDERED: Ketamine 50 MG/ML (10ML VIAL) ONE (11:53)
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
[2019-12-05] MEDS ORDERED: Midazolam HCl 2 mg/2 ml Vial ONE ×2 (12:23→16:32)
[2019-12-05] MEDS ORDERED: Fentanyl 100 MCG/2 ML VIAL ONE ×2 (12:31→17:16)
[2019-12-05] MEDS ORDERED: Sodium Chloride 0.9% 20 ML ONE (13:44)
[2019-12-05] MEDS ORDERED: Vecuronium 10 MG VIAL ONE (14:26)
[2019-12-05] MEDS ORDERED: Dexamethasone 20 MG/5 ML VIAL ONE (14:26)
[2019-12-05] MEDS ORDERED: Rocuronium Bromide 10 MG/ML (10ML VIAL) ONE (14:26)
[2019-12-05] MEDS ORDERED: PHENYLEPHRINE-NS 100 MCG/ML 10 ML SYRINGE ONE (14:26)
[2019-12-05] MEDS ORDERED: Rocuronium Bromide 50 MG/5 ML VIAL ONE (15:43)
[2019-12-05] MEDS ORDERED: Phenylephrine 10 MG/ML VIAL ONE ×2 (15:54→15:55)
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
[2019-12-05] MEDS ORDERED: HYDROmorphone 0.5 MG/0.5 ML SYRINGE SLOW IVP SCH (17:15)
[2019-12-05] MEDS ORDERED: Fentanyl 100 MCG/2 ML VIAL SLOW IVP SCH (17:30)
[2019-12-05] MEDS: Labetalol HCl 100 MG/20 ML VIAL SLOW IVP PRN ×2 (17:32→20:18)
[2019-12-05 17:50] LABS: #Eosinphils 0.1 thou/uL (0.0-0.7); #Lymphocytes 0.8 thou/uL (1.20-3.40); #Monocytes 1.1 thou/uL (0.11-0.59); #Neutrophils 18.5 thou/uL (1.40-6.50); %Basophils 0.1 % (0.0-1.0); %Eosinophils 0.2 % (0.0-10.0); %Lymphocytes 3.9 % (21.0-51.0); %Monocytes 5.5 % (0.0-10.0); %Neutrophils 90.3 % (42.0-75.0); Hemoglobin 8.9 g/dL (14.0-18.0); Mean Corpuscular HGB CONC 32.6 g/dL (32.0-36.0); Mean Corpuscular Volume 95.1 fL (78.0-98.0); Mean Platelet Volume 9.4 fL (7.4-10.4); Platelet Count 235 thou/uL (130-400); RBC Distribution Width 15.4 % (11.5-14.5); Red Blood Cell (RBC) Count 2.87 mill/uL (4.70-6.10); White Blood Cell (WBC) Count 20.5 thou/uL (4.8-10.8)
--- NOTE | 2019-12-05 18:06 | RAD ---
Exam: Chest one view HISTORY:Postop evaluation. Comparison: 08/19/2019 4:59 AM FINDINGS: Lines and tubes: Redemonstration of a tracheostomy, nasogastric tube, Dobbhoff feeding tube, left PIC C line and right-sided subclavian vascular catheter. There appears to be a pneumomediastinum. There are 2 right-sided chest tubes. There is a small right-sided pneumothorax. There is a left-sided chest tube with a small left apical pneumothorax. Cardiac silhouette: Normal Aorta: Unremarkable Pulmonary vessels: Normal Costophrenic angles: Clear LUNGS: Bibasilar consolidation may represent atelectasis, pneumonia or consolidation. Contusions kimberly ot be excluded. Pneumothorax: As above Osseous abnormalities: Remote fractures involving the right hemithorax are redemonstrated IMPRESSION: 1. Lines and tubes as above. 2. Bilateral pneumothoraces 3.Pneumomediastinum. Results conveyed to the Samiateofilo Gradylaury 12/05/2019 at 6:05 PM Code CR Transcribed Date/Time: 12/05/2019 6:13 PM
[2019-12-05 18:12] LABS: Lactic Acid 1.2 mmol/L (0.5-2.2)
[2019-12-05 18:21] LABS: Anion Gap 12 mmol/L (10-20); BUN (Urea Nitrogen) 25 mg/dL (8.9-20.6); Calc. Creatinine Clearance 184 mL/min (70-130); Calcium 7.5 mg/dL (7.8-10.44); Carbon Dioxide 26 mmol/L (22-29); Chloride 112 mmol/L (98-107); Estimated GFR-MDRD Greater than 90; Glucose 148 mg/dL (70-105); Magnesium 1.8 mg/dL (1.6-2.6); Phosphorus 3.4 mg/dL (2.3-4.7); Potassium 4.4 mmol/L (3.5-5.1); Sodium 146 mmol/L (136-145)
[2019-12-05 18:41] LABS: Actual Bicarbonate (HCO3a) 27.6 mEq/L (22-28); Base Excess (BEa) 1.1 mEq/L (-2.0 to +3.0); CO2 Tension 54.6 mmHg (35.0-45.0); Calcium, Ionized (arterial) 1.06 mmol/L (1.12-1.30); Carboxyhemoglobin (COHb) 2.2 gm% (0.0-3.0); Hemoglobin (Hb) 8.9 g/dL (14.0-18.0); Potassium - ABG Lab 4.22 mmol/L (3.70-5.30); pH, Arterial 7.32 (7.35-7.45)
[2019-12-05 18:45] LABS: Puncture Site LINE
[2019-12-05] MEDS ORDERED: Calcium Chloride 1 GM/10 ML Abboject SYRINGE IVP SCH (19:00)
[2019-12-05] MEDS: Enoxaparin Sodium 40 MG/0.4 ML SYRINGE SC SCH (19:49)
[2019-12-05] MEDS: CEFAZOLIN 2 GM in Premix Bag 1 BAG IVPB SCH (21:36)
[2019-12-06] MEDS: HYDROmorphone 10 mg/100 ml CADD IVPB PRN ×3 (00:13→20:46)
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
[2019-12-06] MEDS: Dextrose 5 %-0.45 % NaCl 1,000 ML IV SCH ×4 (02:12→21:41)
[2019-12-06] MEDS: Meropenem 2 GM, Admixture Fee 1 EACH in Sodium Chloride 0.9% 100 ML IVPB SCH ×3 (02:12→18:44)
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
[2019-12-06] MEDS: Levalbuterol HCl 0.63 MG/3 ML NEB NEB SCH ×6 (02:18→22:09)
[2019-12-06] MEDS: Acetylcysteine 10% 100 MG/ML 30 ml Vial NEB SCH ×6 (02:18→22:09)
[2019-12-06 03:45] LABS: Anion Gap 9 mmol/L (10-20); BUN (Urea Nitrogen) 23 mg/dL (8.9-20.6); Band 18 % (5-11); CK (CPK) 697 U/L (30-200); Calc. Creatinine Clearance 197 mL/min (70-130); Calcium 7.5 mg/dL (7.8-10.44); Carbon Dioxide 32 mmol/L (22-29); Chloride 111 mmol/L (98-107); Eosinophils 1 % (0-10); Estimated GFR-MDRD Greater than 90; Glucose 204 mg/dL (70-105); Hemoglobin 8.3 g/dL (14.0-18.0); Lymphocytes 3 % (21-51); MDiff Complete? YES; Magnesium 2.1 mg/dL (1.6-2.6); Mean Corpuscular HGB CONC 32.3 g/dL (32.0-36.0); Mean Corpuscular Hemoglobin 30.7 pg (27.0-31.0); Mean Corpuscular Volume 95.1 fL (78.0-98.0); Mean Platelet Volume 9.5 fL (7.4-10.4); Monocytes 5 % (0-10); Neutrophil 73 % (42-75); Phosphorus 1.4 mg/dL (2.3-4.7); Platelet Count 252 thou/uL (130-400); Platelet Morphology Comment Appears Adequate; Potassium 4.3 mmol/L (3.5-5.1); RBC Distribution Width 15.7 % (11.5-14.5); Red Blood Cell (RBC) Count 2.69 mill/uL (4.70-6.10); Sodium 148 mmol/L (136-145); White Blood Cell (WBC) Count 17.3 thou/uL (4.8-10.8)
[2019-12-06] MEDS ORDERED: Sodium Phosphate 30 MMOL in Sodium Chloride 0.9% 250 ML 250 ML IVPB SCH (04:30)
[2019-12-06] MEDS: Acetaminophen 325 MG TAB PO SCH ×4 (05:24→23:24)
[2019-12-06] MEDS: cloNIDine 0.1 MG TAB PO SCH ×4 (05:25→23:24)
[2019-12-06] MEDS: Metoprolol Tartrate 25 MG TAB PER TUBE SCH ×4 (05:25→23:24)
[2019-12-06] MEDS: Ibuprofen 600 MG TAB PO SCH ×3 (05:25→21:29)
[2019-12-06] MEDS: CEFAZOLIN 2 GM in Premix Bag 1 BAG IVPB SCH ×3 (05:27→21:25)
--- NOTE | 2019-12-06 08:23 | RAD ---
PORTABLE CHEST: Date: 12/06/2019 INDICATION: CCU follow-up with chest tube. COMPARISON: 12/05/2019. FINDINGS/IMPRESSION: Bilateral chest tubes. Probable small right apical pneumothorax. Possible tiny left apical pneumothor ax. Bibasilar infiltrates with right effusion. Appearance of lung mendoza do not appear significantly changed from yesterday. POS: AGW
[2019-12-06] MEDS ORDERED: Iopamidol-370 76% 500 ML 1 ML ONE (08:40)
[2019-12-06] MEDS: Venlafaxine HCl 25 MG TAB PO SCH ×3 (09:28→21:24)
[2019-12-06] MEDS: Amlodipine 10 MG TAB PO SCH (09:29)
[2019-12-06] MEDS: Pantoprazole 40 MG VIAL IVP SCH (09:29)
[2019-12-06] MEDS: acetaZOLAMIDE Sodium 500 mg Vial IVP SCH (09:29)
[2019-12-06] MEDS: Saccharomyces boulardii 250 MG CAP PO SCH ×2 (09:29→21:24)
[2019-12-06] MEDS: Pregabalin 50 MG CAP PO SCH ×3 (09:30→21:23)
[2019-12-06] MEDS: Micafungin 100 MG in Sodium Chloride 0.9% 100 ML IVPB SCH (09:51)
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
[2019-12-06] MEDS ORDERED: Midazolam HCl 2 mg/2 ml Vial SLOW IVP SCH (16:15)
--- NOTE | 2019-12-06 17:11 | ULT ---
Exam: Right upper extremity venous ultrasound with Doppler HISTORY: Swelling. TECHNIQUE: Grayscale, color flow, Doppler imaging and spectral waveform analysis of the right upper e xtremity FINDINGS: There is thrombus involving the brachial vein at the antecubital fossa. The cephalic vein i s thrombosed throughout the entire distal aspect of the right upper extremity. Subclavian vein and axillary vein are patent. Radial vein and basilic vein are patent IMPRESSION: Thrombus in the right brachial vein and cephalic vein.
[2019-12-06] MEDS: Enoxaparin Sodium 40 MG/0.4 ML SYRINGE SC SCH (21:23)
[2019-12-06] MEDS: Senokot 8.6 MG TAB PO SCH (21:23)
[2019-12-07] MEDS: Levalbuterol HCl 0.63 MG/3 ML NEB NEB SCH ×6 (00:14→22:44)
[2019-12-07] MEDS: Acetylcysteine 10% 100 MG/ML 30 ml Vial NEB SCH ×5 (00:14→19:16)
[2019-12-07] MEDS ORDERED: Morphine 2 MG/ML VIAL ONE (03:37)
[2019-12-07] MEDS ORDERED: Morphine 2 MG/ML VIAL SLOW IVP SCH (06:45)
[2019-12-07 06:48] LABS: Band 11 % (5-11); Hemoglobin 7.8 g/dL (14.0-18.0); Hypochromia SLIGHT = 6-15 cells (100X) (0-5/hpf); Lymphocytes 3 % (21-51); MDiff Complete? YES; Mean Corpuscular HGB CONC 31.6 g/dL (32.0-36.0); Mean Corpuscular Hemoglobin 31.4 pg (27.0-31.0); Mean Corpuscular Volume 99.6 fL (78.0-98.0); Monocytes 3 % (0-10); Neutrophil 83 % (42-75); Nucleated RBC 1 % (0); Platelet Count 274 thou/uL (130-400); Platelet Morphology Comment Appears Adequate; Red Blood Cell (RBC) Count 2.49 mill/uL (4.70-6.10); White Blood Cell (WBC) Count 15.4 thou/uL (4.8-10.8)
--- NOTE | 2019-12-07 08:00 | RAD ---
CHEST 1 VIEW: Date: 12/07/2019 INDICATION: History of chest tube placement. COMPARISON: Prior exam dated 12/06/2019. FINDINGS: Bibasilar pleural parenchymal opacities persist. Right-sided thoracostomy tube is similar appearing. Tracheostomy tube, gastric catheter, and feeding tube are in place. There is a right subclavian centr al venous catheter. Right-sided pneumothorax is no longer seen. Left-sided thoracostomy tube is uncha nged. There is a tiny left apical pneumothorax remaining. Osseous structures are unchanged. IMPRESSION: 1. Resolution of previously seen right apical pneumothorax. 2. Persistent but stable small left apical pneumothorax. 3. Stable bilateral thoracostomy tubes, tracheostomy tube, gastric catheter, feeding tube, and right subclavian central venous catheter. POS: BH
[2019-12-07] MEDS: cloNIDine 0.1 MG TAB PO SCH ×2 (08:08→11:22)
[2019-12-07] MEDS: Metoprolol Tartrate 25 MG TAB PER TUBE SCH ×3 (08:08→17:47)
[2019-12-07] MEDS: Amlodipine 10 MG TAB PO SCH (08:08)
[2019-12-07] MEDS: Ibuprofen 600 MG TAB PO SCH ×3 (08:08→22:55)
[2019-12-07] MEDS: Senokot 8.6 MG TAB PO SCH ×2 (08:08→20:58)
[2019-12-07] MEDS: Meropenem 2 GM, Admixture Fee 1 EACH in Sodium Chloride 0.9% 100 ML IVPB SCH ×2 (08:08→10:27)
[2019-12-07] MEDS: Saccharomyces boulardii 250 MG CAP PO SCH ×2 (08:08→20:58)
[2019-12-07] MEDS: Acetaminophen 325 MG TAB PO SCH ×3 (08:08→17:47)
[2019-12-07] MEDS: Pregabalin 50 MG CAP PO SCH ×3 (08:08→20:58)
[2019-12-07] MEDS: Polyethylene Glycol 3350 17 GM Packet PER TUBE SCH (08:09)
[2019-12-07] MEDS: Pantoprazole 40 MG VIAL IVP SCH (08:10)
[2019-12-07] MEDS: acetaZOLAMIDE Sodium 500 mg Vial IVP SCH (08:10)
[2019-12-07] MEDS: Venlafaxine HCl 25 MG TAB PO SCH ×3 (08:29→20:59)
[2019-12-07] MEDS ORDERED: Polyethylene Glycol 3350 17 GM Packet PO SCH (09:00)
[2019-12-07 09:49] LABS: Anion Gap 8 mmol/L (10-20); BUN (Urea Nitrogen) 23 mg/dL (8.9-20.6); Calc. Creatinine Clearance 212 mL/min (70-130); Calcium 7.7 mg/dL (7.8-10.44); Carbon Dioxide 31 mmol/L (22-29); Chloride 114 mmol/L (98-107); Estimated GFR-MDRD Greater than 90; Glucose 150 mg/dL (70-105); Phosphorus 1.8 mg/dL (2.3-4.7); Sodium 149 mmol/L (136-145)
--- NOTE | 2019-12-07 09:54 | PRG ---
DATE OF SERVICE: 12/06/2019 SUBJECTIVE: The patient was resting comfortably. The patient is currently on CPAP via trach. The patient is tolerating well. The patient's urinary output remains adequate. The patient's bilateral chest tubes remain to suction. The patient continues to receive tube feeds. The patient's free water flushes were increased today due to his hypernatremia. The patient's vital signs are stable and high temp at 100.8. The patient's nurse did call later in the night that the patient was restless and when asked if having pain, he indicated yes. One dose of morphine was given in which the patient's pain improved. PLAN: Continue CPAP as tolerated. If the patient's respirations increase greater than 30 or if his SpO2 decreases, he will go back on a rate. Continue supportive care and pain regimen. Continue bilateral chest tubes to suction. Continue to increase activity and have the patient up in the chair during the day. Continue tube feeds. Job ID: [id number] [facility]
[2019-12-07] MEDS ORDERED: Potassium Phosphate 30 MMOL in Sodium Chloride 0.9% 250 ML 250 ML IVPB SCH (10:15)
[2019-12-07] MEDS: Micafungin 100 MG in Sodium Chloride 0.9% 100 ML IVPB SCH (10:27)
[2019-12-07] MEDS: Dextrose 5 %-0.45 % NaCl 1,000 ML IV SCH ×2 (11:23→17:38)
[2019-12-07] MEDS ORDERED: Labetalol HCl 100 MG/20 ML VIAL ONE (14:17)
[2019-12-07] MEDS: Ferrous Sulfate 325 MG TAB PO SCH (17:46)
[2019-12-07] MEDS: cloNIDine 0.3 MG TAB PO SCH ×2 (17:47→23:59)
[2019-12-07] MEDS ORDERED: Tobramycin Sulfate 0.3 GM in Sodium Chloride 0.9% 7.5 ML NEB SCH (18:30)
[2019-12-07] MEDS ORDERED: TOBRAMYCIN 300 MG/5 ML AMP (INHALATION) IH SCH (18:30)
[2019-12-07] MEDS: HYDROmorphone 10 mg/100 ml CADD IVPB PRN (18:30)
[2019-12-07] MEDS: STERILE WATER NEB SCH (19:19)
[2019-12-07] MEDS: TOBRAMYCIN SULFATE NEB SCH (19:19)
[2019-12-07] MEDS: Enoxaparin Sodium 40 MG/0.4 ML SYRINGE SC SCH (20:57)
[2019-12-07] MEDS: Senokot S 8.6-50 MG TAB PO SCH (20:58)
[2019-12-07] MEDS: Ascorbic Acid 500 mg Chewable Tablet PO SCH (20:58)
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
[2019-12-08] MEDS: Acetylcysteine 10% 100 MG/ML 30 ml Vial NEB SCH ×7 (00:14→22:07)
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
[2019-12-08] MEDS: Levalbuterol HCl 0.63 MG/3 ML NEB NEB SCH ×6 (02:41→19:05)
[2019-12-08] MEDS ORDERED: Morphine 4 MG/ML VIAL ONE (04:39)
[2019-12-08] MEDS ORDERED: Morphine 4 MG/ML VIAL SLOW IVP SCH (04:45)
[2019-12-08] MEDS: HYDROmorphone 10 mg/100 ml CADD IVPB PRN (04:47)
[2019-12-08] MEDS: Acetaminophen 325 MG TAB PO SCH ×3 (05:04→18:10)
[2019-12-08] MEDS: cloNIDine 0.3 MG TAB PO SCH ×3 (05:04→17:48)
[2019-12-08] MEDS: Metoprolol Tartrate 25 MG TAB PER TUBE SCH ×4 (05:04→17:50)
[2019-12-08] MEDS: Dextrose 5 %-0.45 % NaCl 1,000 ML IV SCH ×3 (05:05→23:12)
[2019-12-08] MEDS: Ibuprofen 600 MG TAB PO SCH ×3 (05:05→21:22)
[2019-12-08 05:54] LABS: Anion Gap 11 mmol/L (10-20); BUN (Urea Nitrogen) 24 mg/dL (8.9-20.6); Calc. Creatinine Clearance 206 mL/min (70-130); Calcium 7.8 mg/dL (7.8-10.44); Carbon Dioxide 31 mmol/L (22-29); Chloride 114 mmol/L (98-107); Estimated GFR-MDRD Greater than 90; Glucose 190 mg/dL (70-105); Magnesium 1.9 mg/dL (1.6-2.6); Sodium 152 mmol/L (136-145)
[2019-12-08 06:02] LABS: Phosphorus 1.8 mg/dL (2.3-4.7)
[2019-12-08 06:10] LABS: Band 25 % (5-11); Hemoglobin 7.6 g/dL (14.0-18.0); Lymphocytes 1 % (21-51); MDiff Complete? YES; Mean Corpuscular HGB CONC 31.6 g/dL (32.0-36.0); Mean Corpuscular Hemoglobin 30.8 pg (27.0-31.0); Mean Corpuscular Volume 97.7 fL (78.0-98.0); Mean Platelet Volume 9.2 fL (7.4-10.4); Monocytes 4 % (0-10); Myelocyte 1 % (0-0); Neutrophil 69 % (42-75); Platelet Count 318 thou/uL (130-400); RBC Distribution Width 14.9 % (11.5-14.5); Red Blood Cell (RBC) Count 2.47 mill/uL (4.70-6.10); White Blood Cell (WBC) Count 14.4 thou/uL (4.8-10.8)
[2019-12-08] MEDS ORDERED: Potassium Phosphate 30 MMOL, Magnesium Sulfate 2 GM in Sodium Chloride 0.9% 250 ML 250 ML IVPB SCH (07:45)
[2019-12-08] MEDS ORDERED: Magnesium 2 GM/50 ML 2 GM in Premix Bag 1 BAG IVPB SCH (07:45)
[2019-12-08] MEDS: Venlafaxine HCl 25 MG TAB PO SCH ×3 (08:06→21:22)
[2019-12-08] MEDS: Saccharomyces boulardii 250 MG CAP PO SCH ×2 (08:07→21:22)
[2019-12-08] MEDS: Pregabalin 50 MG CAP PO SCH ×3 (08:07→21:22)
[2019-12-08] MEDS: Pantoprazole 40 MG VIAL IVP SCH (08:07)
[2019-12-08] MEDS: Ferrous Sulfate 325 MG TAB PO SCH ×2 (08:07→21:22)
[2019-12-08] MEDS: Ascorbic Acid 500 mg Chewable Tablet PO SCH ×2 (08:07→21:21)
[2019-12-08] MEDS: acetaZOLAMIDE Sodium 500 mg Vial IVP SCH (08:07)
[2019-12-08] MEDS: Polyethylene Glycol 3350 17 GM Packet PER TUBE SCH (08:09)
[2019-12-08] MEDS: TOBRAMYCIN SULFATE NEB SCH (08:15)
[2019-12-08] MEDS: STERILE WATER NEB SCH (08:15)
--- NOTE | 2019-12-08 08:41 | RAD ---
EXAM: XR Chest 1 View Portable PROVIDED CLINICAL HISTORY: Follow-up evaluation. Chest tube in place. COMPARISON: 12/07/2019 FINDINGS: Tracheostomy device, Dobbhoff feeding tube, right-sided vascular catheter, and 2 right-sided thoracos iliana tubes and single left-sided thoracostomy tube remain in place and unchanged in position. Small biapical pneumothoraces are identified. Small right pleural effusion is present with parenchymal sinha ges again seen at the right lung base which could be related to volume loss, pneumonia, and/or contusion. Mild patchy interstitial and parenchymal airspace opacities are again seen at the left adelaide g base which also could be related to pneumonitis or contusion. Right-sided rib fractures and right chest deformity are again seen. Skin clips are again seen overlying the soft tissues lateral lower ri ght chest. IMPRESSION: 1. Lines and tubes in place and stable in position. 2. Small biapical pneumothoraces. 3. Small right pleural effusion. 4. Parenchymal opacity right lung base with interstitial and patchy parenchymal densities at the left lung base also seen on prior exam. Findings may related to combination of volume loss and areas of contusion. Pneumonia is also a possibility.
[2019-12-08 11:01] LABS: Actual Bicarbonate (HCO3a) 31.2 mEq/L (22-28); Base Excess (BEa) 3.7 mEq/L (-2.0 to +3.0); Calcium, Ionized (arterial) 1.17 mmol/L (1.12-1.30); Carboxyhemoglobin (COHb) 0.5 gm% (0.0-3.0); Hemoglobin (Hb) 10.6 g/dL (14.0-18.0); O2 Tension (PaO2), arterial 130.5 mmHg (80.0-100.0); Potassium - ABG Lab 4.25 mmol/L (3.70-5.30); pH, Arterial 7.31 (7.35-7.45)
[2019-12-08 11:05] LABS: CO2 Tension 63.6 mmHg (35.0-45.0); Puncture Site RRA
[2019-12-08] MEDS ORDERED: traMADol HCl 50 MG TAB PO PRN (12:19)
[2019-12-08] MEDS: Senokot 8.6 MG TAB PO SCH (12:55)
[2019-12-08] MEDS: Scopolamine 1.5 mg/72 hour Patch TD SCH (12:55)
[2019-12-08] MEDS: Senokot S 8.6-50 MG TAB PO SCH (12:55)
[2019-12-08] MEDS: Acetaminophen 500 MG TAB PER TUBE SCH ×2 (12:56→17:49)
[2019-12-08] MEDS: traMADol HCl 50 MG TAB PO SCH ×2 (12:56→17:50)
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
[2019-12-08 15:59] LABS: Actual Bicarbonate (HCO3a) 31.7 mEq/L (22-28); Base Excess (BEa) 4.9 mEq/L (-2.0 to +3.0); CO2 Tension 59.2 mmHg (35.0-45.0); Calcium, Ionized (arterial) 1.16 mmol/L (1.12-1.30); Carboxyhemoglobin (COHb) 0.5 gm% (0.0-3.0); Hemoglobin (Hb) 9.7 g/dL (14.0-18.0); O2 Tension (PaO2), arterial 65.2 mmHg (80.0-100.0); Potassium - ABG Lab 4.07 mmol/L (3.70-5.30); pH, Arterial 7.35 (7.35-7.45)
[2019-12-08 16:01] LABS: Puncture Site LRA
[2019-12-08] MEDS ORDERED: ADMIXTURE FEE IVPB SCH (17:00)
[2019-12-08] MEDS ORDERED: SODIUM CHLORIDE IVPB SCH (17:00)
[2019-12-08] MEDS ORDERED: TAZOBACTAM IVPB SCH (17:00)
[2019-12-08] MEDS ORDERED: CEFTOLOZANE IVPB SCH (17:00)
[2019-12-08] MEDS: Micafungin 100 MG in Sodium Chloride 0.9% 100 ML IVPB SCH (18:09)
--- NOTE | 2019-12-08 18:44 | RAD ---
ABDOMEN ONE VIEW: 12/08/19 HISTORY: Abdomen pain. COMPARISON: 12/02/19. FINDINGS: Gas is apparent throughout the small bowel and large bowel. Vertical skin staple line again demonstra gino. Dobhoff feeding catheter unchanged in position. Nasogastric tube no longer visible. Radiopaque wire associated with a catheter overlies the lower midline pelvis at the pubic symphysis. IMPRESSION: No evidence of bowel obstruction or other acute abnormality. POS: BST
--- NOTE | 2019-12-08 18:46 | RAD ---
CHEST ONE VIEW: 12/08/19 HISTORY: Respiratory distress. COMPARISON: Earlier exam on the same date. FINDINGS: Cardiac silhouette is magnified by projection. Right heart margin partially obscured by ill-defined p arenchymal and pleural opacity at the right base. Mediastinum remains midline. Lines and tubes unchanged in position. Very small bilateral pneumothoraces are unchanged. Skin favio at the right lower chest wall again noted. IMPRESSION: Tiny biapical pneumothoraces, pleural fluid, and right basilar atelectasis are stable. POS: BST
[2019-12-08] MEDS: SODIUM CHLORIDE IVPB SCH (20:10)
[2019-12-08] MEDS: ADMIXTURE FEE IVPB SCH (20:10)
[2019-12-08] MEDS: CEFTOLOZANE IVPB SCH (20:10)
[2019-12-08] MEDS: TAZOBACTAM IVPB SCH (20:10)
[2019-12-08] MEDS ORDERED: Senokot 8.6 MG TAB PO PRN (20:17)
[2019-12-08] MEDS: Enoxaparin Sodium 40 MG/0.4 ML SYRINGE SC SCH (21:21)
[2019-12-08] MEDS ORDERED: TOBRAMYCIN SULFATE NEB SCH (21:45)
[2019-12-08] MEDS ORDERED: STERILE WATER NEB SCH (21:45)
[2019-12-08] MEDS: Labetalol HCl 100 MG/20 ML VIAL SLOW IVP PRN (22:10)
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
[2019-12-09] MEDS: Metoprolol Tartrate 25 MG TAB PER TUBE SCH ×5 (00:03→23:36)
[2019-12-09] MEDS: Acetaminophen 500 MG TAB PER TUBE SCH ×5 (00:03→23:35)
[2019-12-09] MEDS: cloNIDine 0.3 MG TAB PO SCH ×5 (00:03→23:35)
[2019-12-09] MEDS: traMADol HCl 50 MG TAB PO SCH ×5 (00:03→23:36)
[2019-12-09] MEDS ORDERED: Lactated Ringer's 500 ML IV SCH (01:30)
[2019-12-09] MEDS: Levalbuterol HCl 0.63 MG/3 ML NEB NEB SCH ×6 (02:08→21:32)
[2019-12-09] MEDS: Acetylcysteine 10% 100 MG/ML 30 ml Vial NEB SCH ×6 (02:09→21:33)
--- NOTE | 2019-12-09 02:53 | PRG ---
DATE OF SERVICE: 12/08/2019 SUBJECTIVE: The patient was seen during evening rounds, awake, alert, in no distress. The patient's is currently at bedside. The patient's nurse reports he has had multiple loose bowel movements. The patient's Senokot was held. The patient remains on full ventilatory support. Right-sided chest tubes remain to suction. Left side chest tube to water seal. The patient's urinary output has been adequate for the patient's age and weight. The patient's current ventilator settings, assist control, volume 450, rate 18, PEEP 5, FiO2 40%, peak pressure is 21, minute volume 15 L. Later in the night, the patient's urinary output dropped off for 2 hours, 45 and 35 mL. A 500 mL LR bolus was given. The patient also became agitated later in the night and pulled at his trach circuit. The patient had to be placed in soft restraints. PLAN: Continue supportive care and pain regimen. Continue full ventilatory support. Continue tobramycin nebs b.i.d. We will unschedule the patient's Senokot, as he is having multiple loose bowel movements. Repeat labs in the morning. Continue physical and occupational therapy. Job ID: [id number]
[2019-12-09] MEDS: TAZOBACTAM IVPB SCH ×3 (03:00→20:48)
[2019-12-09] MEDS: SODIUM CHLORIDE IVPB SCH ×3 (03:00→20:48)
[2019-12-09] MEDS: CEFTOLOZANE IVPB SCH ×3 (03:00→20:48)
[2019-12-09] MEDS: ADMIXTURE FEE IVPB SCH ×3 (03:00→20:48)
[2019-12-09 03:40] LABS: #Lymphocytes 1.2 thou/uL (1.20-3.40); #Monocytes 0.7 thou/uL (0.11-0.59); #Neutrophils 13.3 thou/uL (1.40-6.50); %Basophils 0.3 % (0.0-1.0); %Eosinophils 0.3 % (0.0-10.0); %Lymphocytes 7.9 % (21.0-51.0); %Monocytes 4.4 % (0.0-10.0); Hemoglobin 8.4 g/dL (14.0-18.0); Mean Corpuscular HGB CONC 31.9 g/dL (32.0-36.0); Mean Platelet Volume 8.9 fL (7.4-10.4); Platelet Count 323 thou/uL (130-400); RBC Distribution Width 14.6 % (11.5-14.5); Red Blood Cell (RBC) Count 2.73 mill/uL (4.70-6.10); White Blood Cell (WBC) Count 15.3 thou/uL (4.8-10.8)
[2019-12-09 04:08] LABS: Anion Gap 12 mmol/L (10-20); BUN (Urea Nitrogen) 28 mg/dL (8.9-20.6); Calc. Creatinine Clearance 203 mL/min (70-130); Carbon Dioxide 30 mmol/L (22-29); Chloride 114 mmol/L (98-107); Estimated GFR-MDRD Greater than 90; Glucose 147 mg/dL (70-105); Magnesium 1.9 mg/dL (1.6-2.6); Phosphorus 2.4 mg/dL (2.3-4.7); Sodium 152 mmol/L (136-145)
[2019-12-09] MEDS: Dextrose 5 %-0.45 % NaCl 1,000 ML IV SCH ×2 (06:26→17:39)
[2019-12-09] MEDS: Ibuprofen 600 MG TAB PO SCH ×3 (06:27→20:52)
[2019-12-09] MEDS ORDERED: TOBRAMYCIN SULFATE NEB SCH (06:30)
[2019-12-09] MEDS ORDERED: STERILE WATER NEB SCH (06:30)
[2019-12-09 07:22] LABS: Actual Bicarbonate (HCO3a) 30.6 mEq/L (22-28); CO2 Tension 45.2 mmHg (35.0-45.0); Calcium, Ionized (arterial) 1.19 mmol/L (1.12-1.30); Carboxyhemoglobin (COHb) 1.1 gm% (0.0-3.0); Hemoglobin (Hb) 8.7 g/dL (14.0-18.0); O2 Tension (PaO2), arterial 88.3 mmHg (80.0-100.0); Potassium - ABG Lab 3.76 mmol/L (3.70-5.30); pH, Arterial 7.45 (7.35-7.45)
[2019-12-09 07:24] LABS: Puncture Site LRA
--- NOTE | 2019-12-09 10:56 | RAD ---
Chest one view HISTORY: Chest tube. Follow-up. COMPARISON: 12/08/2019. FINDINGS: Cardiac silhouette is magnified and upper limits of normal in size. Pulmonary vasculature i s unremarkable. Mediastinum is midline. Bilateral thoracostomy tubes and other lines and tubes appear unchanged in po sition. Small bilateral apical pneumothoraces are unchanged. Bibasilar parenchymal opacity, right greater than left, and right pleural fluid are unchanged. Postoperative changes of the right chest and right rib deformities stable. IMPRESSION : Small biapical pneumothoraces, postoperative changes of the chest, including right pleural fluid, and other findings are stable.
[2019-12-09] MEDS: Pantoprazole 40 MG VIAL IVP SCH (11:27)
[2019-12-09] MEDS: AcetaZOLAMIDE 250 MG TAB PER TUBE SCH (11:36)
[2019-12-09] MEDS: Saccharomyces boulardii 250 MG CAP PO SCH ×2 (11:37→20:50)
[2019-12-09] MEDS: Pregabalin 50 MG CAP PO SCH ×3 (11:37→20:50)
[2019-12-09] MEDS: Ferrous Sulfate 325 MG TAB PO SCH ×2 (11:39→20:49)
[2019-12-09] MEDS: Venlafaxine HCl 25 MG TAB PO SCH ×3 (11:39→20:51)
[2019-12-09] MEDS: Ascorbic Acid 500 mg Chewable Tablet PO SCH ×2 (11:39→20:49)
[2019-12-09] MEDS: Polyethylene Glycol 3350 17 GM Packet PER TUBE SCH (11:40)
[2019-12-09] MEDS: Morphine 4 MG/ML VIAL SLOW IVP PRN (12:45)
[2019-12-09] MEDS: Ondansetron PF 4 MG/2 ML Vial IVP PRN ×2 (14:35→21:03)
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
[2019-12-09] MEDS ORDERED: TOBRAMYCIN 300 MG/5 ML AMP (INHALATION) IH SCH (18:30)
[2019-12-09] MEDS: Enoxaparin Sodium 40 MG/0.4 ML SYRINGE SC SCH (20:49)
[2019-12-09] MEDS: Melatonin 3 MG TAB PO SCH (20:49)
[2019-12-09] MEDS ORDERED: Dextrose 5 %-0.45 % NaCl 1,000 ML IV SCH (23:59)
[2019-12-10] MEDS: Dextrose 5 %-0.45 % NaCl 1,000 ML IV SCH (00:02)
--- NOTE | 2019-12-10 00:26 | PRG ---
DATE OF SERVICE: 12/09/2019 SUBJECTIVE: Patient was seen during evening rounds, awake, alert, in no distress. The patient had complained of some abdominal discomfort earlier, in which they gave him some Zofran in which it improved. The patient continues to tolerate ice chips. The patient is asking for milk. The patient's right-sided chest tube remains to suction. The patient was started on melatonin for sleep. The patient's pain is controlled at this time. The patient remains on full ventilatory support with total respirations around 30. Urinary output is adequate for age and weight. GCS remains 11T. PLAN: Continue supportive care and pain regimen. Continue tube feeds with free water flushes 250 mL every 4 hours. Continue bilateral chest tubes to suction. Continue to increase physical and occupational therapy. Melatonin for sleep. Repeat labs in the morning. Continue full mechanical ventilatory support. Dr. Hunt plans to do a bronchoscopy tomorrow. The patient should be up in a chair daily. Job ID: [id number]
[2019-12-10] MEDS: Acetylcysteine 10% 100 MG/ML 30 ml Vial NEB SCH ×3 (01:23→10:31)
[2019-12-10] MEDS: Levalbuterol HCl 0.63 MG/3 ML NEB NEB SCH ×3 (01:23→10:31)
[2019-12-10] MEDS: Morphine 4 MG/ML VIAL SLOW IVP PRN ×3 (02:23→19:33)
[2019-12-10] MEDS: ADMIXTURE FEE IVPB SCH ×3 (02:28→20:14)
[2019-12-10] MEDS: CEFTOLOZANE IVPB SCH ×3 (02:28→20:14)
[2019-12-10] MEDS: SODIUM CHLORIDE IVPB SCH ×3 (02:28→20:14)
[2019-12-10] MEDS: TAZOBACTAM IVPB SCH ×3 (02:28→20:14)
[2019-12-10 05:19] LABS: Band 12 % (5-11); Eosinophils 1 % (0-10); Hemoglobin 8.3 g/dL (14.0-18.0); Lymphocytes 6 % (21-51); MDiff Complete? YES; Mean Corpuscular Hemoglobin 31.1 pg (27.0-31.0); Mean Corpuscular Volume 97.3 fL (78.0-98.0); Mean Platelet Volume 8.5 fL (7.4-10.4); Monocytes 6 % (0-10); Neutrophil 75 % (42-75); Platelet Count 323 thou/uL (130-400); RBC Distribution Width 14.4 % (11.5-14.5); Red Blood Cell (RBC) Count 2.65 mill/uL (4.70-6.10); White Blood Cell (WBC) Count 13.1 thou/uL (4.8-10.8)
[2019-12-10] MEDS: Acetaminophen 500 MG TAB PER TUBE SCH ×3 (05:58→18:05)
[2019-12-10] MEDS: cloNIDine 0.3 MG TAB PO SCH ×3 (05:58→18:05)
[2019-12-10] MEDS: Ibuprofen 600 MG TAB PO SCH ×3 (05:59→21:20)
[2019-12-10] MEDS: Metoprolol Tartrate 25 MG TAB PER TUBE SCH ×3 (05:59→18:05)
[2019-12-10] MEDS: traMADol HCl 50 MG TAB PO SCH ×3 (06:00→18:05)
[2019-12-10 06:09] LABS: Anion Gap 10 mmol/L (10-20); BUN (Urea Nitrogen) 27 mg/dL (8.9-20.6); Calc. Creatinine Clearance 196 mL/min (70-130); Calcium 7.9 mg/dL (7.8-10.44); Carbon Dioxide 28 mmol/L (22-29); Chloride 113 mmol/L (98-107); Estimated GFR-MDRD Greater than 90; Glucose 176 mg/dL (70-105); Magnesium 1.7 mg/dL (1.6-2.6); Phosphorus 2.9 mg/dL (2.3-4.7); Potassium 3.4 mmol/L (3.5-5.1); Sodium 148 mmol/L (136-145)
[2019-12-10 07:17] LABS: Actual Bicarbonate (HCO3a) 28.4 mEq/L (22-28); Base Excess (BEa) 3.3 mEq/L (-2.0 to +3.0); CO2 Tension 46.2 mmHg (35.0-45.0); Calcium, Ionized (arterial) 1.19 mmol/L (1.12-1.30); Hemoglobin (Hb) 7.9 g/dL (14.0-18.0); O2 Tension (PaO2), arterial 129.7 mmHg (80.0-100.0); Potassium - ABG Lab 3.32 mmol/L (3.70-5.30); pH, Arterial 7.41 (7.35-7.45)
[2019-12-10 07:18] LABS: Puncture Site LRA
[2019-12-10] MEDS ORDERED: Magnesium 2 GM/50 ML 2 GM in Premix Bag 1 BAG IVPB SCH (07:45)
[2019-12-10] MEDS ORDERED: Potassium Phosphate 30 MMOL in Sodium Chloride 0.9% 250 ML 250 ML IVPB SCH (07:45)
[2019-12-10] MEDS: AcetaZOLAMIDE 250 MG TAB PER TUBE SCH (09:36)
[2019-12-10] MEDS: Venlafaxine HCl 25 MG TAB PO SCH ×3 (09:36→21:20)
[2019-12-10] MEDS: Pantoprazole 40 MG VIAL IVP SCH (09:36)
[2019-12-10] MEDS: Ferrous Sulfate 325 MG TAB PO SCH ×2 (09:36→21:19)
[2019-12-10] MEDS: Pregabalin 50 MG CAP PO SCH ×3 (09:37→21:19)
[2019-12-10] MEDS: Ascorbic Acid 500 mg Chewable Tablet PO SCH ×2 (09:37→21:17)
[2019-12-10] MEDS: Saccharomyces boulardii 250 MG CAP PO SCH ×2 (09:37→21:20)
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
--- NOTE | 2019-12-10 10:47 | PRG ---
DATE OF SERVICE: 12/10/2019 SUBJECTIVE: The patient is doing well. He is sitting up in a chair. He is more alert. He follows commands today. He is wiggling his fingers on the right hand, which I have not seen him do previously. He still has edema in his hand. His pain seems to be controlled. His is at the bedside. OBJECTIVE: VITAL SIGNS: He does have a low-grade temperature 100.4, pulse is 103, respiratory rate 28, blood pressure 141/88. GENERAL: He is alert. He is in a trach. He is sitting up. EXTREMITIES: He has an upper extremity splint on the right. He is able to gently flex the fingers and can do a thumbs up, although not complete. He reports feeling light touch, but he does not feel normal. He has edema of the hand. He is able to flex and extend the toes and ankles. PLAN: The patient will continue critical care. Continue respiratory support as needed. Continue DVT prophylaxis. We will continue to follow the patient's wounds. He will mobilize. Job ID: [id number]
[2019-12-10] MEDS: Ondansetron PF 4 MG/2 ML Vial IVP PRN ×2 (10:55→19:32)
[2019-12-10] MEDS ORDERED: Cyclobenzaprine 10 MG TAB PO PRN (11:23)
[2019-12-10] MEDS ORDERED: traMADol HCl 50 MG TAB PO SCH (11:30)
[2019-12-10] MEDS: Polyethylene Glycol 3350 17 GM Packet PER TUBE SCH (11:51)
[2019-12-10] MEDS ORDERED: Midazolam HCl 2 mg/2 ml Vial SLOW IVP SCH (12:00)
[2019-12-10] MEDS ORDERED: Fentanyl 100 MCG/2 ML VIAL SLOW IVP SCH (12:00)
[2019-12-10] MEDS ORDERED: Furosemide 20 MG/2 ML VIAL SLOW IVP SCH (12:30)
[2019-12-10] MEDS ORDERED: Furosemide 40 MG/4 ML VIAL ONE (12:36)
[2019-12-10] MEDS ORDERED: Furosemide 40 MG/4 ML VIAL SLOW IVP SCH (12:45)
[2019-12-10 13:36] LABS: Base Excess (BEa) 1.7 mEq/L (-2.0 to +3.0); CO2 Tension 45.5 mmHg (35.0-45.0); Calcium, Ionized (arterial) 1.14 mmol/L (1.12-1.30); Carboxyhemoglobin (COHb) 0.7 gm% (0.0-3.0); Hemoglobin (Hb) 9.2 g/dL (14.0-18.0); O2 Tension (PaO2), arterial 71.3 mmHg (80.0-100.0); Potassium - ABG Lab 3.58 mmol/L (3.70-5.30); pH, Arterial 7.39 (7.35-7.45)
[2019-12-10 13:41] LABS: Puncture Site RRA
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
[2019-12-10] MEDS: Lidocaine 5% Patch TD SCH (18:06)
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
[2019-12-10] MEDS: Furosemide 20 MG/2 ML VIAL SLOW IVP SCH (20:14)
[2019-12-10] MEDS: Enoxaparin Sodium 40 MG/0.4 ML SYRINGE SC SCH (21:17)
[2019-12-10] MEDS: Melatonin 3 MG TAB PO SCH (21:19)
[2019-12-10] MEDS: ALPRAZolam 0.25 MG TAB PO PRN (21:21)
[2019-12-11] MEDS: Acetaminophen 500 MG TAB PER TUBE SCH ×4 (00:07→17:00)
[2019-12-11] MEDS: cloNIDine 0.3 MG TAB PO SCH ×4 (00:07→17:13)
[2019-12-11] MEDS: traMADol HCl 50 MG TAB PO SCH ×4 (00:08→16:59)
[2019-12-11] MEDS: Metoprolol Tartrate 25 MG TAB PER TUBE SCH ×4 (00:08→17:13)
--- NOTE | 2019-12-11 02:06 | PRG ---
DATE OF SERVICE: 12/10/2019 SUBJECTIVE: The patient was seen during evening rounds on the critical care unit. The patient is currently sitting up with trach collar in place, awake, alert, in no distress. The patient's respirations seem to be less labored on trach collar. OBJECTIVE: VITAL SIGNS: The patient's vital signs are stable and he remains afebrile. Urinary output is adequate for the patient's age and weight. PLAN: Continue supportive care and pain regimen. Continue tube feeds with free water flushes, 250 mL every 4 hours. The patient is to be up in the neuro chair daily. Continue aggressive physical and occupational therapy. Trach collar as tolerated. Silvana Alcantar for anxiety. Job ID: [id number]
[2019-12-11] MEDS: CEFTOLOZANE IVPB SCH ×3 (02:17→18:10)
[2019-12-11] MEDS: Morphine 4 MG/ML VIAL SLOW IVP PRN ×2 (02:17→19:25)
[2019-12-11] MEDS: TAZOBACTAM IVPB SCH ×3 (02:17→18:10)
[2019-12-11] MEDS: SODIUM CHLORIDE IVPB SCH ×3 (02:17→18:10)
[2019-12-11] MEDS: ADMIXTURE FEE IVPB SCH ×3 (02:17→18:10)
[2019-12-11] MEDS: Furosemide 20 MG/2 ML VIAL SLOW IVP SCH ×2 (04:13→11:44)
[2019-12-11 05:07] LABS: Anion Gap 10 mmol/L (10-20); BUN (Urea Nitrogen) 30 mg/dL (8.9-20.6); Calc. Creatinine Clearance 187 mL/min (70-130); Calcium 7.9 mg/dL (7.8-10.44); Carbon Dioxide 28 mmol/L (22-29); Chloride 112 mmol/L (98-107); Estimated GFR-MDRD Greater than 90; Glucose 158 mg/dL (70-105); Phosphorus 3.2 mg/dL (2.3-4.7); Potassium 3.1 mmol/L (3.5-5.1); Sodium 147 mmol/L (136-145)
[2019-12-11 05:15] LABS: Band 15 % (5-11); Eosinophils 1 % (0-10); Hemoglobin 8.5 g/dL (14.0-18.0); Lymphocytes 9 % (21-51); MDiff Complete? YES; Mean Corpuscular HGB CONC 31.4 g/dL (32.0-36.0); Mean Corpuscular Hemoglobin 30.2 pg (27.0-31.0); Mean Corpuscular Volume 96.1 fL (78.0-98.0); Mean Platelet Volume 8.8 fL (7.4-10.4); Monocytes 1 % (0-10); Neutrophil 74 % (42-75); Platelet Count 341 thou/uL (130-400); RBC Distribution Width 14.6 % (11.5-14.5); White Blood Cell (WBC) Count 11.2 thou/uL (4.8-10.8)
[2019-12-11] MEDS: Ibuprofen 600 MG TAB PO SCH ×3 (05:58→21:15)
[2019-12-11] MEDS ORDERED: Potassium Phosphate 30 MMOL in Sodium Chloride 0.9% 250 ML 250 ML IVPB SCH (08:00)
[2019-12-11] MEDS: AcetaZOLAMIDE 250 MG TAB PER TUBE SCH (09:15)
[2019-12-11] MEDS: Pantoprazole 40 MG VIAL IVP SCH (09:15)
[2019-12-11] MEDS: Hydrochlorothiazide 25 MG TAB PO SCH (09:15)
[2019-12-11] MEDS: Ascorbic Acid 500 mg Chewable Tablet PO SCH ×2 (09:19→20:32)
[2019-12-11] MEDS: Ferrous Sulfate 325 MG TAB PO SCH ×2 (09:19→20:33)
[2019-12-11] MEDS: Pregabalin 50 MG CAP PO SCH ×3 (09:20→20:33)
[2019-12-11] MEDS: Saccharomyces boulardii 250 MG CAP PO SCH ×2 (09:20→20:34)
--- NOTE | 2019-12-11 09:20 | RAD ---
PORTABLE CHEST: HISTORY: Chest tube. Pneumothorax. Followup. COMPARISON: 12/10/2019. FINDINGS: Bilateral chest tubes again noted. Bibasilar infiltrates and atelectasis with right effusion. Small bilateral apical pneumothoraces again noted slightly larger on the right. These are stable from yes terday. Tracheostomy device and NG tube are unchanged in position. IMPRESSION: No significant interval change. POS: OFF
[2019-12-11] MEDS: Venlafaxine HCl 25 MG TAB PO SCH ×3 (09:21→20:34)
[2019-12-11] MEDS: Polyethylene Glycol 3350 17 GM Packet PER TUBE SCH (09:21)
[2019-12-11] MEDS: Ondansetron PF 4 MG/2 ML Vial IVP PRN ×2 (10:02→19:26)
[2019-12-11] MEDS: ALPRAZolam 0.25 MG TAB PO PRN (11:00)
--- NOTE | 2019-12-11 11:06 | RAD ---
Chest one view HISTORY: Chest injury. Chest tube placement. COMPARISON: Earlier exam on the same date. FINDINGS: Cardiac silhouette is magnified by projection and partially obscured by ill-defined parench ymal opacity at the right base. Mediastinum remains midline. Lines and tubes unchanged in position. Small bilateral pneumothoraces similar in appearance to the prior study. Right pleural fluid unchange d. Right clavicle and rib fractures again demonstrated. IMPRESSION : Bilateral pneumothoraces and other posttraumatic findings are stable.
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
[2019-12-11] MEDS: Enoxaparin Sodium 40 MG/0.4 ML SYRINGE SC SCH (20:32)
[2019-12-11] MEDS ORDERED: Lidocaine Patch Removal 1 EACH TOP SCH (21:00)
[2019-12-11] MEDS: Melatonin 3 MG TAB PO SCH (21:13)
[2019-12-12] MEDS: traMADol HCl 50 MG TAB PO SCH ×5 (00:46→23:47)
[2019-12-12] MEDS: Acetaminophen 500 MG TAB PER TUBE SCH ×5 (00:47→23:46)
[2019-12-12] MEDS: Metoprolol Tartrate 25 MG TAB PER TUBE SCH ×5 (00:47→23:47)
[2019-12-12] MEDS: cloNIDine 0.3 MG TAB PO SCH ×5 (00:47→23:47)
[2019-12-12] MEDS: Morphine 4 MG/ML VIAL SLOW IVP PRN ×5 (00:58→23:46)
[2019-12-12] MEDS: ALPRAZolam 0.25 MG TAB PO PRN (01:30)
[2019-12-12] MEDS: CEFTOLOZANE IVPB SCH ×3 (02:08→20:27)
[2019-12-12] MEDS: TAZOBACTAM IVPB SCH ×3 (02:08→20:27)
[2019-12-12] MEDS: SODIUM CHLORIDE IVPB SCH ×3 (02:08→20:27)
[2019-12-12] MEDS: ADMIXTURE FEE IVPB SCH ×3 (02:08→20:27)
[2019-12-12 02:38] LABS: Hemoglobin 9.2 g/dL (14.0-18.0); Mean Corpuscular HGB CONC 31.1 g/dL (32.0-36.0); Mean Corpuscular Hemoglobin 29.8 pg (27.0-31.0); Mean Corpuscular Volume 95.8 fL (78.0-98.0); Mean Platelet Volume 8.8 fL (7.4-10.4); Platelet Count 367 thou/uL (130-400); Red Blood Cell (RBC) Count 3.09 mill/uL (4.70-6.10); White Blood Cell (WBC) Count 13.5 thou/uL (4.8-10.8)
[2019-12-12 03:02] LABS: Band 7 % (5-11); Eosinophils 1 % (0-10); Lymphocytes 7 % (21-51); MDiff Complete? YES; Monocytes 6 % (0-10); Neutrophil 79 % (42-75)
[2019-12-12 03:15] LABS: Phosphorus 3.2 mg/dL (2.3-4.7)
[2019-12-12 03:16] LABS: ALT (SGPT) 140 U/L (8-55); AST (SGOT) 164 U/L (5-34); Albumin 2.6 g/dL (3.5-5.0); Alkaline Phosphatase 169 U/L (40-110); Anion Gap 12 mmol/L (10-20); BUN (Urea Nitrogen) 27 mg/dL (8.9-20.6); Bilirubin, Total 0.8 mg/dL (0.2-1.2); CRP (Inflammatory) 10.76 mg/dL (= or < 0.5); Calc. Creatinine Clearance 176 mL/min (70-130); Calcium 8.3 mg/dL (7.8-10.44); Carbon Dioxide 27 mmol/L (22-29); Chloride 105 mmol/L (98-107); Estimated GFR-MDRD Greater than 90; Globulin 3.5 g/dL (2.4-3.5); Glucose 187 mg/dL (70-105); Magnesium 1.8 mg/dL (1.6-2.6); Potassium 3.3 mmol/L (3.5-5.1); Protein, Total 6.1 g/dL (6.0-8.3); Sodium 141 mmol/L (136-145)
[2019-12-12] MEDS: Ibuprofen 600 MG TAB PO SCH ×3 (05:54→20:37)
[2019-12-12] MEDS ORDERED: Potassium Phosphate 30 MMOL, Magnesium Sulfate 2 GM in Sodium Chloride 0.9% 250 ML IVPB SCH (07:03)
[2019-12-12] MEDS ORDERED: Magnesium Sulfate 2 GM in Sodium Chloride 0.9% 100 ML IVPB SCH (07:05)
[2019-12-12] MEDS: Venlafaxine HCl 25 MG TAB PO SCH ×3 (07:18→20:38)
[2019-12-12] MEDS: Ascorbic Acid 500 mg Chewable Tablet PO SCH ×2 (07:18→20:36)
[2019-12-12] MEDS: Pregabalin 50 MG CAP PO SCH ×3 (07:18→20:37)
[2019-12-12] MEDS: Ferrous Sulfate 325 MG TAB PO SCH ×2 (07:19→20:37)
[2019-12-12] MEDS: Hydrochlorothiazide 25 MG TAB PO SCH (07:19)
[2019-12-12] MEDS: Saccharomyces boulardii 250 MG CAP PO SCH ×2 (07:19→20:35)
[2019-12-12] MEDS: Polyethylene Glycol 3350 17 GM Packet PER TUBE SCH (07:20)
[2019-12-12] MEDS: Pantoprazole 40 MG VIAL IVP SCH (07:20)
[2019-12-12] MEDS: Lidocaine 5% Patch TD SCH (07:20)
[2019-12-12] MEDS: Sodium Chloride 0.9% (PF) 10 ML VIAL FS PRN (07:21)
[2019-12-12] MEDS: AcetaZOLAMIDE 250 MG TAB PER TUBE SCH (07:25)
--- NOTE | 2019-12-12 09:32 | RAD ---
PORTABLE CHEST: Date: 12/12/2019 HISTORY: Follow-up chest tube with pneumothorax and infiltrates. CCU follow-up. COMPARISON: 12/11/2019. FINDINGS: Bilateral apical pneumothoraces again seen, slightly larger on the right, similar to yesterday. Biba silar infiltrates and bilateral effusions. Chest tubes unchanged. IMPRESSION: Stable chest findings when compared to yesterday. POS: AGW
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
[2019-12-12] MEDS: Melatonin 3 MG TAB PO SCH (20:36)
[2019-12-12] MEDS: Enoxaparin Sodium 40 MG/0.4 ML SYRINGE SC SCH (20:38)
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
[2019-12-12] MEDS: Ondansetron PF 4 MG/2 ML Vial IVP PRN (22:06)
[2019-12-13] MEDS: TAZOBACTAM IVPB SCH ×3 (02:59→20:38)
[2019-12-13] MEDS: SODIUM CHLORIDE IVPB SCH ×3 (02:59→20:38)
[2019-12-13] MEDS: CEFTOLOZANE IVPB SCH ×3 (02:59→20:38)
[2019-12-13] MEDS: ADMIXTURE FEE IVPB SCH ×3 (02:59→20:38)
[2019-12-13] MEDS: Morphine 4 MG/ML VIAL SLOW IVP PRN ×4 (04:25→23:42)
[2019-12-13 04:47] LABS: #Basophils 0.1 thou/uL (0.0-0.2); #Eosinphils 0.2 thou/uL (0.0-0.7); #Lymphocytes 1.1 thou/uL (1.20-3.40); #Monocytes 0.8 thou/uL (0.11-0.59); #Neutrophils 10.3 thou/uL (1.40-6.50); %Basophils 0.5 % (0.0-1.0); %Eosinophils 1.3 % (0.0-10.0); %Lymphocytes 8.8 % (21.0-51.0); %Monocytes 6.7 % (0.0-10.0); %Neutrophils 82.7 % (42.0-75.0); Hemoglobin 9.3 g/dL (14.0-18.0); Mean Corpuscular HGB CONC 31.9 g/dL (32.0-36.0); Mean Corpuscular Hemoglobin 30.3 pg (27.0-31.0); Mean Corpuscular Volume 94.9 fL (78.0-98.0); Platelet Count 467 thou/uL (130-400); RBC Distribution Width 15.3 % (11.5-14.5); Red Blood Cell (RBC) Count 3.07 mill/uL (4.70-6.10); White Blood Cell (WBC) Count 12.5 thou/uL (4.8-10.8)
[2019-12-13 05:08] LABS: Anion Gap 10 mmol/L (10-20); BUN (Urea Nitrogen) 30 mg/dL (8.9-20.6); Calc. Creatinine Clearance 190 mL/min (70-130); Carbon Dioxide 28 mmol/L (22-29); Chloride 108 mmol/L (98-107); Estimated GFR-MDRD Greater than 90; Glucose 131 mg/dL (70-105); Magnesium 1.8 mg/dL (1.6-2.6); Phosphorus 2.9 mg/dL (2.3-4.7); Potassium 3.7 mmol/L (3.5-5.1); Sodium 142 mmol/L (136-145)
[2019-12-13] MEDS: cloNIDine 0.3 MG TAB PO SCH ×2 (05:37→11:24)
[2019-12-13] MEDS: traMADol HCl 50 MG TAB PO SCH ×4 (05:38→23:34)
[2019-12-13] MEDS: Acetaminophen 500 MG TAB PER TUBE SCH ×2 (05:38→11:24)
[2019-12-13] MEDS: Metoprolol Tartrate 25 MG TAB PER TUBE SCH ×6 (05:38→23:44)
[2019-12-13] MEDS: Ibuprofen 600 MG TAB PO SCH (05:38)
--- NOTE | 2019-12-13 07:29 | RAD ---
Portable frontal chest radiograph: 12/13/2019 COMPARISON: 12/12/2019 HISTORY: Chest tube FINDINGS: 2 stable right-sided chest tubes are present. There is a stable lateral left-sided chest tu be. There is a small pneumothorax in the left lung apex, not significantly changed. There is a stable right apical pneumothorax as well, larger than the pneumothorax on the left. Multiple right-si ded rib fractures are present. There are cutaneous favio associated with the chest wall inferiorly on the right. Stable tracheostomy tube, enteric tube, and right vascular catheter. Stable nonspecific airspace disease noted in both lung bases, right greater than left, with a stable small/moderate right pleural effusion. IMPRESSION: Stable appearance of the chest as detailed above.
[2019-12-13] MEDS ORDERED: Potassium Phosphate 30 MMOL, Magnesium Sulfate 2 GM in Sodium Chloride 0.9% 250 ML 250 ML IVPB SCH (08:15)
[2019-12-13] MEDS: Pantoprazole 40 MG VIAL IVP SCH (08:51)
[2019-12-13] MEDS: Lidocaine 5% Patch TD SCH (08:51)
[2019-12-13] MEDS: Ascorbic Acid 500 mg Chewable Tablet PO SCH ×2 (08:52→21:14)
[2019-12-13] MEDS: Pregabalin 50 MG CAP PO SCH ×3 (08:52→21:14)
[2019-12-13] MEDS: Saccharomyces boulardii 250 MG CAP PO SCH ×2 (08:52→21:14)
[2019-12-13] MEDS: Polyethylene Glycol 3350 17 GM Packet PER TUBE SCH (08:52)
[2019-12-13] MEDS: Hydrochlorothiazide 25 MG TAB PO SCH (08:52)
[2019-12-13] MEDS: AcetaZOLAMIDE 250 MG TAB PER TUBE SCH (09:01)
[2019-12-13] MEDS: Ondansetron PF 4 MG/2 ML Vial IVP PRN ×4 (09:07→21:30)
[2019-12-13] MEDS: Venlafaxine HCl 25 MG TAB PO SCH ×3 (09:57→21:14)
[2019-12-13] MEDS ORDERED: Furosemide 20 MG/2 ML VIAL SLOW IVP SCH (11:45)
[2019-12-13] MEDS: Ibuprofen 100 MG/5 ML UDCUP PER TUBE SCH ×2 (14:18→23:22)
[2019-12-13] MEDS: cloNIDine 0.1 MG TAB PER TUBE SCH ×2 (18:17→23:43)
[2019-12-13] MEDS: Acetaminophen 650 MG/20.3 ML UDCUP PER TUBE SCH ×2 (18:24→23:31)
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
[2019-12-13] MEDS: Melatonin 3 MG TAB PO SCH (21:14)
[2019-12-13] MEDS: ALPRAZolam 0.25 MG TAB PO PRN (21:14)
[2019-12-13] MEDS: Enoxaparin Sodium 40 MG/0.4 ML SYRINGE SC SCH (21:15)
[2019-12-14] MEDS: Morphine 4 MG/ML VIAL SLOW IVP PRN ×3 (03:24→16:28)
[2019-12-14] MEDS: SODIUM CHLORIDE IVPB SCH ×3 (03:25→21:34)
[2019-12-14] MEDS: CEFTOLOZANE IVPB SCH ×3 (03:25→21:34)
[2019-12-14] MEDS: ADMIXTURE FEE IVPB SCH ×3 (03:25→21:34)
[2019-12-14] MEDS: TAZOBACTAM IVPB SCH ×3 (03:25→21:34)
[2019-12-14] MEDS: Acetaminophen 650 MG/20.3 ML UDCUP PER TUBE SCH ×4 (05:28→23:42)
[2019-12-14] MEDS: traMADol HCl 50 MG TAB PO SCH ×4 (05:28→23:45)
[2019-12-14] MEDS: cloNIDine 0.1 MG TAB PER TUBE SCH ×4 (05:37→23:44)
[2019-12-14] MEDS: Metoprolol Tartrate 25 MG TAB PER TUBE SCH ×4 (05:37→23:45)
[2019-12-14] MEDS: Ibuprofen 100 MG/5 ML UDCUP PER TUBE SCH ×3 (05:42→21:43)
[2019-12-14] MEDS: Ondansetron PF 4 MG/2 ML Vial IVP PRN (05:47)
--- NOTE | 2019-12-14 08:04 | RAD ---
Portable frontal chest radiograph: 12/14/2019 COMPARISON: 12/13/2019 HISTORY: Chest tube FINDINGS: Numerous displaced right-sided rib fractures are noted. Comminuted displaced right clavicle fracture. Stable enteric tube, right vascular catheter, and tracheostomy tube. Bilateral apical pneumothoraces are again noted, right greater than left. Stable medial right chest tube. Lung bases a re not fully visualized on this exam. There is interstitial and alveolar opacity in bilateral lung bases. Blunting of the right costophrenic angle consistent with stable right pleural effusion. Cutane ous favio noted within the inferior lateral right chest wall. Drainage tube present within the right upper quadrant/right costophrenic angle region on the prior exam has been removed. IMPRESSION: No significant interval change aside from interval removal of a drainage tube within the right upper quadrant/right lung base.
[2019-12-14] MEDS: Polyethylene Glycol 3350 17 GM Packet PER TUBE SCH (09:30)
[2019-12-14] MEDS: Pantoprazole 40 MG VIAL IVP SCH (09:31)
[2019-12-14] MEDS: ALPRAZolam 0.25 MG TAB PO PRN ×2 (09:31→16:17)
[2019-12-14] MEDS: Saccharomyces boulardii 250 MG CAP PO SCH ×2 (09:31→21:39)
[2019-12-14] MEDS: Ascorbic Acid 500 mg Chewable Tablet PO SCH ×2 (09:31→21:36)
[2019-12-14] MEDS: Pregabalin 50 MG CAP PO SCH ×3 (09:31→21:38)
[2019-12-14] MEDS: Venlafaxine HCl 25 MG TAB PO SCH ×3 (09:37→21:39)
[2019-12-14] MEDS: Hydrochlorothiazide 25 MG TAB PO SCH (09:37)
[2019-12-14] MEDS: AcetaZOLAMIDE 250 MG TAB PER TUBE SCH ×2 (09:38→21:36)
[2019-12-14] MEDS: Lidocaine 5% Patch TD SCH (09:39)
--- NOTE | 2019-12-14 09:53 | RAD ---
PORTABLE CHEST: Date: 12/14/2019 INDICATION: Follow-up pneumothoraces. COMPARISON: 12/14/2019 at 0518 hours. FINDINGS: Bilateral apical pneumothoraces are unchanged. Right effusion and right basilar atelectasis unchanged . Right chest tube and central line unchanged. NG tube unchanged. Other findings described previously again noted. IMPRESSION: No interval change from the film of earlier this morning. POS: AH
[2019-12-14 10:45] LABS: Actual Bicarbonate (HCO3a) 28.5 mEq/L (22-28); Base Excess (BEa) 2.3 mEq/L (-2.0 to +3.0); Calcium, Ionized (arterial) 1.17 mmol/L (1.12-1.30); Carboxyhemoglobin (COHb) 1.3 gm% (0.0-3.0); Hemoglobin (Hb) 11.2 g/dL (14.0-18.0); Potassium - ABG Lab 3.98 mmol/L (3.70-5.30); pH, Arterial 7.36 (7.35-7.45)
[2019-12-14 11:18] LABS: O2 Tension (PaO2), arterial 50.5 mmHg (80.0-100.0)
[2019-12-14 13:04] LABS: Actual Bicarbonate (HCO3a) 28.3 mEq/L (22-28); Base Excess (BEa) 1.6 mEq/L (-2.0 to +3.0); CO2 Tension 54.1 mmHg (35.0-45.0); Calcium, Ionized (arterial) 1.17 mmol/L (1.12-1.30); Carboxyhemoglobin (COHb) 1.4 gm% (0.0-3.0); Hemoglobin (Hb) 11.6 g/dL (14.0-18.0); O2 Tension (PaO2), arterial 94.2 mmHg (80.0-100.0); Potassium - ABG Lab 4.07 mmol/L (3.70-5.30); pH, Arterial 7.34 (7.35-7.45)
[2019-12-14 13:09] LABS: Puncture Site RRA
[2019-12-14 13:10] LABS: ALV-art Gradient 265.975 mmHg (0-20)
[2019-12-14 14:33] LABS: #Eosinphils 0.2 thou/uL (0.0-0.7); #Lymphocytes 0.6 thou/uL (1.20-3.40); #Neutrophils 17.5 thou/uL (1.40-6.50); %Basophils 0.2 % (0.0-1.0); %Eosinophils 0.8 % (0.0-10.0); %Monocytes 5.3 % (0.0-10.0); %Neutrophils 90.8 % (42.0-75.0); Hemoglobin 10.6 g/dL (14.0-18.0); Mean Corpuscular HGB CONC 32.2 g/dL (32.0-36.0); Mean Corpuscular Hemoglobin 30.5 pg (27.0-31.0); Mean Corpuscular Volume 94.7 fL (78.0-98.0); Mean Platelet Volume 8.2 fL (7.4-10.4); Platelet Count 713 thou/uL (130-400); RBC Distribution Width 14.9 % (11.5-14.5); Red Blood Cell (RBC) Count 3.49 mill/uL (4.70-6.10); White Blood Cell (WBC) Count 19.3 thou/uL (4.8-10.8)
[2019-12-14] MEDS ORDERED: Iopamidol-370 76% 500 ML 1 ML ONE (14:42)
[2019-12-14 15:03] LABS: Anion Gap 10 mmol/L (10-20); BUN (Urea Nitrogen) 33 mg/dL (8.9-20.6); Calc. Creatinine Clearance 157 mL/min (70-130); Calcium 8.7 mg/dL (7.8-10.44); Carbon Dioxide 32 mmol/L (22-29); Chloride 104 mmol/L (98-107); Estimated GFR-MDRD Greater than 90; Glucose 151 mg/dL (70-105); Phosphorus 4.3 mg/dL (2.3-4.7); Sodium 142 mmol/L (136-145)
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
--- NOTE | 2019-12-14 16:37 | CT ---
CT CHEST WITH CONTRAST: Date: 12/14/2019 INDICATION: Question empyema. Comparison made to chest CT of 12/06/2019. FINDINGS: There continues to be an anterior right side pneumothorax. The chest tube on the right enters anterio rly and the chest tube traverses the anterior pneumothorax, similar to the prior exam. The pneumothor ax may be slightly smaller than on the prior study. A tiny left pneumothorax is seen anteriorly, slightly larger than on the prior study. Hazy ground-glass opacity again seen throughout the left lung. This does show improvement when compar ed to the prior study. The upper lobe opacities especially show improvement. There continues to be so me ground-glass opacity in the left lower lobe, although not as extensive as on the prior study. In the right lung, there continues to be dense consolidation and atelectasis of the right lower lobe, similar in appearance to the prior exam. There is some associated fluid, although this density mostl y represents dense consolidated and atelectatic lung, and does not appear significantly changed from 12/06/2019. There is fluid and air seen along the right chest wall laterally at the site of a previou sly placed chest tube which has been removed. The rib fractures and deformities are again noted. The thoracic aorta is unremarkable. The pulmonary arteries are opacified. There is no evidence of pro ximal pulmonary embolus. Images through the upper abdomen appear unremarkable. There are drainage tubes seen in the upper abdo men which are only partially imaged. IMPRESSION: 1. Persistent right pneumothorax anteriorly. 2. Continued dense consolidation and atelectasis of posterior right lower lobe which has a similar a ppearance to the prior exam. There is some fluid associated with this consolidation, although the eloina earance is similar to 12/06/2019. 3. Fluid gas along the right lateral chest wall along the pleural surface which appears to be extrap leural. This is at the site of a previously noted chest tube which has been removed. 4. Continued ground-glass parenchymal opacity bilaterally, although there has been significant impro vement in the parenchymal infiltrates when compared to 12/06/2019. POS: ESTER
[2019-12-14] MEDS: Micafungin 100 MG in Sodium Chloride 0.9% 100 ML IVPB SCH (16:46)
[2019-12-14 17:22] LABS: Hemoglobin 10.4 g/dL (14.0-18.0); Mean Corpuscular HGB CONC 32.2 g/dL (32.0-36.0); Mean Corpuscular Hemoglobin 30.4 pg (27.0-31.0); Mean Corpuscular Volume 94.2 fL (78.0-98.0); Mean Platelet Volume 8.4 fL (7.4-10.4); Platelet Count 696 thou/uL (130-400); Red Blood Cell (RBC) Count 3.43 mill/uL (4.70-6.10); White Blood Cell (WBC) Count 18.4 thou/uL (4.8-10.8)
[2019-12-14] MEDS: Vancomycin HCl 1.25 GM in Sodium Chloride 0.9% 250 ML 250 ML IVPB SCH (17:29)
[2019-12-14 17:33] LABS: Band 20 % (5-11); Lymphocytes 6 % (21-51); MDiff Complete? YES; Metamyelocyte 2 % (0-0); Monocytes 2 % (0-10); Neutrophil 70 % (42-75); Ovalocytes SLIGHT = 2-5 cells (100X) (0-1/hpf); Platelet Morphology Comment Appears Increased; Polychromasia MODERATE = 3-4 cells (100X) (0-2/hpf)
[2019-12-14] MEDS: Enoxaparin Sodium 40 MG/0.4 ML SYRINGE SC SCH (21:37)
[2019-12-14] MEDS: Lidocaine Patch Removal TOP SCH (21:37)
[2019-12-14] MEDS: Melatonin 3 MG TAB PO SCH (21:38)
[2019-12-14] MEDS ORDERED: Sodium Chloride 0.9% 500 ML IV SCH (21:45)
[2019-12-14] MEDS: Morphine 2 MG/ML VIAL SLOW IVP PRN (22:16)
[2019-12-15] MEDS ORDERED: Sodium Chloride 0.9% 500 ML IV SCH (00:15)
[2019-12-15] MEDS: Morphine 2 MG/ML VIAL SLOW IVP PRN ×5 (01:26→21:02)
[2019-12-15] MEDS ORDERED: Sodium Chloride 0.9% 1,000 ML IV SCH (01:30)
[2019-12-15 01:46] LABS: #Eosinphils 0.1 thou/uL (0.0-0.7); #Lymphocytes 0.9 thou/uL (1.20-3.40); #Neutrophils 12.5 thou/uL (1.40-6.50); %Basophils 0.3 % (0.0-1.0); %Eosinophils 0.6 % (0.0-10.0); %Lymphocytes 6.4 % (21.0-51.0); %Neutrophils 85.7 % (42.0-75.0); Hemoglobin 9.6 g/dL (14.0-18.0); Mean Corpuscular HGB CONC 31.4 g/dL (32.0-36.0); Mean Corpuscular Volume 95.6 fL (78.0-98.0); Mean Platelet Volume 8.2 fL (7.4-10.4); Platelet Count 674 thou/uL (130-400); RBC Distribution Width 14.6 % (11.5-14.5); Red Blood Cell (RBC) Count 3.18 mill/uL (4.70-6.10); White Blood Cell (WBC) Count 14.6 thou/uL (4.8-10.8)
[2019-12-15 02:16] LABS: Anion Gap 13 mmol/L (10-20); BUN (Urea Nitrogen) 33 mg/dL (8.9-20.6); Calc. Creatinine Clearance 148 mL/min (70-130); Calcium 8.4 mg/dL (7.8-10.44); Carbon Dioxide 26 mmol/L (22-29); Chloride 106 mmol/L (98-107); Estimated GFR-MDRD Greater than 90; Glucose 155 mg/dL (70-105); Magnesium 1.8 mg/dL (1.6-2.6); Phosphorus 3.3 mg/dL (2.3-4.7); Potassium 3.9 mmol/L (3.5-5.1); Sodium 141 mmol/L (136-145)
[2019-12-15] MEDS: ADMIXTURE FEE IVPB SCH ×3 (04:05→20:20)
[2019-12-15] MEDS: SODIUM CHLORIDE IVPB SCH ×3 (04:05→20:20)
[2019-12-15] MEDS: CEFTOLOZANE IVPB SCH ×3 (04:05→20:20)
[2019-12-15] MEDS: TAZOBACTAM IVPB SCH ×3 (04:05→20:20)
[2019-12-15] MEDS: Vancomycin HCl 1.25 GM in Sodium Chloride 0.9% 250 ML 250 ML IVPB SCH (04:10)
[2019-12-15] MEDS: traMADol HCl 50 MG TAB PO SCH ×3 (05:27→17:02)
[2019-12-15] MEDS: Ibuprofen 100 MG/5 ML UDCUP PER TUBE SCH ×3 (05:27→21:03)
[2019-12-15] MEDS: Acetaminophen 650 MG/20.3 ML UDCUP PER TUBE SCH ×3 (05:27→17:04)
[2019-12-15] MEDS: cloNIDine 0.1 MG TAB PER TUBE SCH ×3 (05:27→17:02)
[2019-12-15] MEDS: Metoprolol Tartrate 25 MG TAB PER TUBE SCH ×3 (06:06→17:04)
[2019-12-15] MEDS ORDERED: Magnesium Sulfate 3 GM in Sodium Chloride 0.9% 250 ML 250 ML IVPB SCH (06:30)
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
--- NOTE | 2019-12-15 08:13 | RAD ---
XR Chest 1 View Portable History: Chest tube Comparison: Radiograph prior day Findings: Indwelling right thoracostomy with small right hydropneumothorax. Trace left apical pneumot horax. Tracheostomy is similar. Weighted feeding tube is seen with tip below diaphragm although out of field of view. Airspace opacities are similar. Right midclavicular fracture. Multiple right-sided rib fractures. Right subclavian central venous cat heter tip projects over the right atrium. Impression: Decreasing pneumothoraces.
[2019-12-15] MEDS: Ascorbic Acid 500 mg Chewable Tablet PO SCH ×2 (09:12→20:17)
[2019-12-15] MEDS: Hydrochlorothiazide 25 MG TAB PO SCH (09:13)
[2019-12-15] MEDS: Pregabalin 50 MG CAP PO SCH ×3 (09:13→20:17)
[2019-12-15] MEDS: Lidocaine 5% Patch TD SCH (09:13)
[2019-12-15] MEDS: Saccharomyces boulardii 250 MG CAP PO SCH ×2 (09:14→20:18)
[2019-12-15] MEDS: Venlafaxine HCl 25 MG TAB PO SCH ×3 (09:14→20:23)
[2019-12-15] MEDS: Pantoprazole 40 MG VIAL IVP SCH (09:15)
[2019-12-15] MEDS: AcetaZOLAMIDE 250 MG TAB PER TUBE SCH ×2 (09:23→20:30)
[2019-12-15] MEDS: Polyethylene Glycol 3350 17 GM Packet PER TUBE SCH (09:57)
[2019-12-15] MEDS: Ondansetron PF 4 MG/2 ML Vial IVP PRN (09:57)
[2019-12-15] MEDS: Vancomycin 1.5 GRAM/300 ML BAG 1.5 GM in Premix Bag 1 BAG IVPB SCH (14:45)
[2019-12-15] MEDS ORDERED: Vancomycin HCl 1.75 GM in Sodium Chloride 0.9% 500 ML IVPB SCH (15:00)
[2019-12-15] MEDS: Micafungin 100 MG in Sodium Chloride 0.9% 100 ML IVPB SCH (15:41)
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
[2019-12-15] MEDS: Enoxaparin Sodium 40 MG/0.4 ML SYRINGE SC SCH (20:17)
[2019-12-15] MEDS: Melatonin 3 MG TAB PO SCH (20:30)
[2019-12-15] MEDS: Lidocaine Patch Removal TOP SCH (21:30)
[2019-12-16] MEDS: Acetaminophen 650 MG/20.3 ML UDCUP PER TUBE SCH ×5 (00:06→23:44)
[2019-12-16] MEDS: Vancomycin 1.5 GRAM/300 ML BAG 1.5 GM in Premix Bag 1 BAG IVPB SCH ×4 (00:07→23:44)
[2019-12-16] MEDS: traMADol HCl 50 MG TAB PO SCH ×5 (00:11→23:45)
[2019-12-16] MEDS: cloNIDine 0.1 MG TAB PER TUBE SCH ×5 (00:14→23:44)
[2019-12-16] MEDS: Metoprolol Tartrate 25 MG TAB PER TUBE SCH ×5 (00:15→23:45)
[2019-12-16] MEDS: Morphine 2 MG/ML VIAL SLOW IVP PRN ×5 (00:48→21:31)
[2019-12-16] MEDS: SODIUM CHLORIDE IVPB SCH ×3 (04:19→20:45)
[2019-12-16] MEDS: CEFTOLOZANE IVPB SCH ×3 (04:19→20:45)
[2019-12-16] MEDS: ADMIXTURE FEE IVPB SCH ×3 (04:19→20:45)
[2019-12-16] MEDS: TAZOBACTAM IVPB SCH ×3 (04:19→20:45)
[2019-12-16 04:46] LABS: #Eosinphils 0.3 thou/uL (0.0-0.7); #Lymphocytes 1.4 thou/uL (1.20-3.40); #Monocytes 1.1 thou/uL (0.11-0.59); #Neutrophils 9.4 thou/uL (1.40-6.50); %Basophils 0.3 % (0.0-1.0); %Eosinophils 2.2 % (0.0-10.0); %Lymphocytes 11.5 % (21.0-51.0); %Monocytes 9.1 % (0.0-10.0); %Neutrophils 76.9 % (42.0-75.0); Hemoglobin 8.5 g/dL (14.0-18.0); Mean Corpuscular HGB CONC 30.2 g/dL (32.0-36.0); Mean Platelet Volume 7.7 fL (7.4-10.4); Platelet Count 684 thou/uL (130-400); RBC Distribution Width 14.3 % (11.5-14.5); Red Blood Cell (RBC) Count 2.91 mill/uL (4.70-6.10); White Blood Cell (WBC) Count 12.2 thou/uL (4.8-10.8)
[2019-12-16 05:15] LABS: Anion Gap 9 mmol/L (10-20); BUN (Urea Nitrogen) 30 mg/dL (8.9-20.6); Calc. Creatinine Clearance 176 mL/min (70-130); Calcium 8.5 mg/dL (7.8-10.44); Carbon Dioxide 33 mmol/L (22-29); Chloride 104 mmol/L (98-107); Estimated GFR-MDRD Greater than 90; Glucose 116 mg/dL (70-105); Magnesium 1.9 mg/dL (1.6-2.6); Phosphorus 3.5 mg/dL (2.3-4.7); Potassium 3.5 mmol/L (3.5-5.1); Sodium 142 mmol/L (136-145)
[2019-12-16] MEDS: Ibuprofen 100 MG/5 ML UDCUP PER TUBE SCH ×3 (05:30→21:32)
[2019-12-16] MEDS ORDERED: Magnesium Sulfate 3 GM in Sodium Chloride 0.9% 250 ML 250 ML IVPB SCH (07:30)
--- NOTE | 2019-12-16 08:32 | RAD ---
PORTABLE CHEST: HISTORY: Followup CCU and chest tube. COMPARISON: 12/15/2019. FINDINGS: Right chest tube unchanged. Right effusion and right basilar infiltrate and atelectasis unchanged in appearance. Hazy infiltrate in the left lower lung is again noted. Probable small residual right pneumothorax. There is fluid density seen in the right apex, similar t o yesterday. Right rib fractures are again noted. Probable tiny residual left pneumothorax, althoug h a pleural line is not definitely delineated. There has been no significant change from yesterday's exam. IMPRESSION: Stable chest. POS: AGW
[2019-12-16] MEDS: Saccharomyces boulardii 250 MG CAP PO SCH ×2 (09:29→20:45)
[2019-12-16] MEDS: Hydrochlorothiazide 25 MG TAB PO SCH (09:30)
[2019-12-16] MEDS: Ascorbic Acid 500 mg Chewable Tablet PO SCH ×2 (09:30→20:46)
[2019-12-16] MEDS: AcetaZOLAMIDE 250 MG TAB PER TUBE SCH ×2 (09:30→20:46)
[2019-12-16] MEDS: Polyethylene Glycol 3350 17 GM Packet PER TUBE SCH (09:30)
[2019-12-16] MEDS: Venlafaxine HCl 25 MG TAB PO SCH ×3 (09:30→20:46)
[2019-12-16] MEDS: Pregabalin 50 MG CAP PO SCH ×3 (09:31→20:46)
[2019-12-16] MEDS: Lidocaine 5% Patch TD SCH (09:32)
[2019-12-16] MEDS: Pantoprazole 40 MG VIAL IVP SCH (09:33)
[2019-12-16 14:41] LABS: Vancomycin, Trough 17.2 ug/mL
[2019-12-16] MEDS: Micafungin 100 MG in Sodium Chloride 0.9% 100 ML IVPB SCH (15:58)
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
[2019-12-16] MEDS: Melatonin 3 MG TAB PO SCH (20:46)
[2019-12-16] MEDS: Lidocaine Patch Removal TOP SCH (20:48)
[2019-12-16] MEDS: Enoxaparin Sodium 40 MG/0.4 ML SYRINGE SC SCH (20:48)
[2019-12-16] MEDS: ALPRAZolam 0.25 MG TAB PO PRN (23:49)
[2019-12-17] MEDS: Morphine 2 MG/ML VIAL SLOW IVP PRN ×2 (03:21→21:18)
[2019-12-17] MEDS: SODIUM CHLORIDE IVPB SCH ×3 (03:52→19:45)
[2019-12-17] MEDS: CEFTOLOZANE IVPB SCH ×3 (03:52→19:45)
[2019-12-17] MEDS: ADMIXTURE FEE IVPB SCH ×3 (03:52→19:45)
[2019-12-17] MEDS: TAZOBACTAM IVPB SCH ×3 (03:52→19:45)
[2019-12-17 04:54] LABS: Anion Gap 11 mmol/L (10-20); BUN (Urea Nitrogen) 28 mg/dL (8.9-20.6); Calc. Creatinine Clearance 186 mL/min (70-130); Calcium 8.5 mg/dL (7.8-10.44); Carbon Dioxide 27 mmol/L (22-29); Chloride 104 mmol/L (98-107); Estimated GFR-MDRD Greater than 90; Glucose 126 mg/dL (70-105); Magnesium 1.8 mg/dL (1.6-2.6); Phosphorus 3.5 mg/dL (2.3-4.7); Potassium 3.1 mmol/L (3.5-5.1); Sodium 139 mmol/L (136-145)
[2019-12-17 05:33] LABS: Band 3 % (5-11); Eosinophils 3 % (0-10); Hemoglobin 8.6 g/dL (14.0-18.0); Lymphocytes 8 % (21-51); MDiff Complete? YES; Mean Corpuscular HGB CONC 31.8 g/dL (32.0-36.0); Mean Corpuscular Hemoglobin 29.9 pg (27.0-31.0); Mean Corpuscular Volume 94.1 fL (78.0-98.0); Mean Platelet Volume 7.7 fL (7.4-10.4); Metamyelocyte 1 % (0-0); Monocytes 7 % (0-10); Neutrophil 77 % (42-75); Platelet Count 750 thou/uL (130-400); Platelet Morphology Comment Appears Increased; RBC Distribution Width 14.3 % (11.5-14.5); RBC Morphology Normal; Red Blood Cell (RBC) Count 2.88 mill/uL (4.70-6.10); White Blood Cell (WBC) Count 10.5 thou/uL (4.8-10.8)
[2019-12-17] MEDS: Metoprolol Tartrate 25 MG TAB PER TUBE SCH ×4 (05:42→23:38)
[2019-12-17] MEDS: cloNIDine 0.1 MG TAB PER TUBE SCH ×4 (05:42→23:37)
[2019-12-17] MEDS: traMADol HCl 50 MG TAB PO SCH ×4 (05:42→23:37)
[2019-12-17] MEDS: Acetaminophen 650 MG/20.3 ML UDCUP PER TUBE SCH ×4 (05:43→23:38)
[2019-12-17] MEDS: Vancomycin 1.5 GRAM/300 ML BAG 1.5 GM in Premix Bag 1 BAG IVPB SCH ×3 (06:01→23:37)
[2019-12-17] MEDS: Ibuprofen 100 MG/5 ML UDCUP PER TUBE SCH ×3 (07:17→21:20)
[2019-12-17] MEDS: Lidocaine 5% Patch TD SCH (09:06)
[2019-12-17] MEDS: Polyethylene Glycol 3350 17 GM Packet PER TUBE SCH (09:06)
[2019-12-17] MEDS: Pantoprazole 40 MG VIAL IVP SCH (09:06)
[2019-12-17] MEDS: Hydrochlorothiazide 25 MG TAB PO SCH (09:06)
[2019-12-17] MEDS: AcetaZOLAMIDE 250 MG TAB PER TUBE SCH ×2 (09:06→19:49)
[2019-12-17] MEDS: Venlafaxine HCl 25 MG TAB PO SCH ×3 (09:06→19:50)
[2019-12-17] MEDS: Ascorbic Acid 500 mg Chewable Tablet PO SCH ×2 (09:06→19:49)
[2019-12-17] MEDS: Pregabalin 50 MG CAP PO SCH ×3 (09:07→19:50)
[2019-12-17] MEDS: Saccharomyces boulardii 250 MG CAP PO SCH ×2 (09:07→19:51)
--- NOTE | 2019-12-17 12:15 | RAD ---
PORTABLE CHEST: DATE: 12/17/2019. PROVIDED CLINICAL HISTORY: Respiratory insufficiency. FINDINGS: Comparison is made with the study dated 12/16/2019. Interval development of left-sided pneumothorax, mild-moderate. No evidence for new mediastinal shift. Volume loss at the right lung base with asso ciated pleural parenchymal opacity are redemonstrated. Support apparatus appears stable. Residual r ight-sided pneumothorax is likely present with limitations due to multiple overlying structures. IMPRESSION: Development of new left-sided pneumothorax. Findings communicated to Leda in CCU at 8:46 a.m. 12/17/2019. CODE CR POS: SHON
[2019-12-17] MEDS: Micafungin 100 MG in Sodium Chloride 0.9% 100 ML IVPB SCH (16:00)
[2019-12-17] MEDS: Melatonin 3 MG TAB PO SCH (19:50)
[2019-12-17] MEDS: Enoxaparin Sodium 40 MG/0.4 ML SYRINGE SC SCH (19:51)
[2019-12-17] MEDS: Lidocaine Patch Removal TOP SCH (19:52)
[2019-12-17] MEDS: ALPRAZolam 0.25 MG TAB PO PRN (23:37)
[2019-12-18] MEDS: Morphine 2 MG/ML VIAL SLOW IVP PRN ×3 (02:11→21:34)
[2019-12-18] MEDS: SODIUM CHLORIDE IVPB SCH ×3 (04:08→20:39)
[2019-12-18] MEDS: CEFTOLOZANE IVPB SCH ×3 (04:08→20:39)
[2019-12-18] MEDS: ADMIXTURE FEE IVPB SCH ×3 (04:08→20:39)
[2019-12-18] MEDS: TAZOBACTAM IVPB SCH ×3 (04:08→20:39)
[2019-12-18 04:28] LABS: #Basophils 0.1 thou/uL (0.0-0.2); #Eosinphils 0.5 thou/uL (0.0-0.7); #Lymphocytes 1.2 thou/uL (1.20-3.40); #Monocytes 0.9 thou/uL (0.11-0.59); #Neutrophils 7.7 thou/uL (1.40-6.50); %Basophils 0.6 % (0.0-1.0); %Eosinophils 5.1 % (0.0-10.0); %Lymphocytes 11.6 % (21.0-51.0); %Monocytes 8.7 % (0.0-10.0); Hemoglobin 9.1 g/dL (14.0-18.0); Mean Corpuscular HGB CONC 32.3 g/dL (32.0-36.0); Mean Corpuscular Hemoglobin 29.8 pg (27.0-31.0); Mean Corpuscular Volume 92.5 fL (78.0-98.0); Mean Platelet Volume 7.2 fL (7.4-10.4); Platelet Count 762 thou/uL (130-400); RBC Distribution Width 14.4 % (11.5-14.5); Red Blood Cell (RBC) Count 3.05 mill/uL (4.70-6.10); White Blood Cell (WBC) Count 10.3 thou/uL (4.8-10.8)
[2019-12-18 04:51] LABS: Anion Gap 11 mmol/L (10-20); BUN (Urea Nitrogen) 26 mg/dL (8.9-20.6); Calc. Creatinine Clearance 197 mL/min (70-130); Calcium 8.4 mg/dL (7.8-10.44); Carbon Dioxide 26 mmol/L (22-29); Chloride 105 mmol/L (98-107); Estimated GFR-MDRD Greater than 90; Glucose 140 mg/dL (70-105); Magnesium 1.7 mg/dL (1.6-2.6); Phosphorus 3.4 mg/dL (2.3-4.7); Sodium 139 mmol/L (136-145)
[2019-12-18] MEDS: Ibuprofen 100 MG/5 ML UDCUP PER TUBE SCH ×3 (05:10→21:03)
[2019-12-18] MEDS: Metoprolol Tartrate 25 MG TAB PER TUBE SCH ×4 (05:11→23:33)
[2019-12-18] MEDS: cloNIDine 0.1 MG TAB PER TUBE SCH ×4 (05:11→23:32)
[2019-12-18] MEDS: Acetaminophen 650 MG/20.3 ML UDCUP PER TUBE SCH ×4 (05:11→23:32)
[2019-12-18] MEDS: traMADol HCl 50 MG TAB PO SCH ×4 (05:12→23:33)
[2019-12-18] MEDS: Vancomycin 1.5 GRAM/300 ML BAG 1.5 GM in Premix Bag 1 BAG IVPB SCH ×2 (06:08→16:19)
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
--- NOTE | 2019-12-18 08:22 | RAD ---
PORTABLE CHEST: HISTORY: Respiratory distress. Followup trauma. FINDINGS: Right-sided rib fractures and pleural parenchymal lung changes are stable. Right chest tube remains in place. Right subclavian line is unchanged in position. Dobbhoff feeding tube is seen below the h emidiaphragm. The size of the left-sided pneumothorax has improved slightly as compared to the prior exam. IMPRESSION: Slight improvement to the left-sided pneumothorax. Otherwise, relatively stable exam. POS: LIZBETH
[2019-12-18] MEDS ORDERED: Magnesium Sulfate 4 GM, Potassium Phosphate 30 MMOL in Sodium Chloride 0.9% 250 ML 250 ML IVPB SCH (08:45)
[2019-12-18] MEDS ORDERED: Pregabalin 50 MG CAP PO SCH (09:00)
[2019-12-18] MEDS: Hydrochlorothiazide 25 MG TAB PO SCH (09:29)
[2019-12-18] MEDS: AcetaZOLAMIDE 250 MG TAB PER TUBE SCH (09:29)
[2019-12-18] MEDS: Venlafaxine HCl 25 MG TAB PO SCH ×3 (09:29→20:32)
[2019-12-18] MEDS: Ascorbic Acid 500 mg Chewable Tablet PO SCH ×2 (09:29→20:31)
[2019-12-18] MEDS: Pregabalin 75 MG CAP PO SCH ×2 (09:30→20:32)
[2019-12-18] MEDS: Saccharomyces boulardii 250 MG CAP PO SCH ×2 (09:32→20:33)
[2019-12-18] MEDS: Lidocaine 5% Patch TD SCH (09:32)
[2019-12-18] MEDS: Pantoprazole 40 MG VIAL IVP SCH (09:33)
[2019-12-18] MEDS: Sodium Chloride 0.9% (PF) 10 ML VIAL FS PRN (09:33)
[2019-12-18] MEDS: Polyethylene Glycol 3350 17 GM Packet PER TUBE SCH (09:33)
--- NOTE | 2019-12-18 11:40 | ULT ---
EXAM: Bilateral lower extremity venous Doppler HISTORY: Left upper extremity DVT. Follow-up evaluation. FINDINGS: Grayscale, color-flow, Doppler evaluation, spectral analysis of the bilateral lower extremity venous structures is performed with 2-D imaging. The bilateral common femoral, superficial femoral, popliteal, posterior tibial, proximal greater saphenous and profunda femoral veins are imaged. There is normal luminal compressibility, flow, and augmentation in the visualized deep venous structu res of the bilateral lower extremities. IMPRESSION: No evidence of a deep vein thrombosis in the visualized deep venous structures bilateral lower extrem ities.
--- NOTE | 2019-12-18 11:41 | ULT ---
BILATERAL UPPER EXTREMITY VENOUS ULTRASOUND: HISTORY: DVT follow-up. COMPARISON: None. TECHNIQUE: Multiplanar grayscale and color Doppler images were obtained in a bilateral upper extremity venous ul trasound. Spectral analysis of the Doppler waveforms were performed. FINDINGS: Right upper extremity: Thrombus in the cephalic vein involving the mid forearm level to the antecubit al fossa. Limited evaluation the right internal jugular vein and subclavian vein due to overlying bandage material. Remainder of the visualized right upper extremity venous system is patent. Left upper; partial thrombus in the left brachial vein proximally. Cephalic and basilic vein are occl uded. Remainder of the visualized left upper extremity venous system is patent. IMPRESSION: Bilateral upper extremity thrombus. Transcribed Date/Time: 12/18/2019 11:56 AM
[2019-12-18] MEDS: Micafungin 100 MG in Sodium Chloride 0.9% 100 ML IVPB SCH (15:35)
[2019-12-18 15:37] LABS: Vancomycin, Trough 9.2 ug/mL
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
[2019-12-18] MEDS: Enoxaparin Sodium 40 MG/0.4 ML SYRINGE SC SCH (20:31)
[2019-12-18] MEDS: Melatonin 3 MG TAB PO SCH (20:49)
[2019-12-18] MEDS: Lidocaine Patch Removal TOP SCH (21:30)
[2019-12-19] MEDS: TAZOBACTAM IVPB SCH ×3 (04:10→20:34)
[2019-12-19] MEDS: ADMIXTURE FEE IVPB SCH ×3 (04:10→20:34)
[2019-12-19] MEDS: SODIUM CHLORIDE IVPB SCH ×3 (04:10→20:34)
[2019-12-19] MEDS: CEFTOLOZANE IVPB SCH ×3 (04:10→20:34)
[2019-12-19] MEDS: Morphine 2 MG/ML VIAL SLOW IVP PRN (04:13)
[2019-12-19] MEDS: Metoprolol Tartrate 25 MG TAB PER TUBE SCH ×4 (05:59→23:03)
[2019-12-19] MEDS: Ibuprofen 100 MG/5 ML UDCUP PER TUBE SCH ×3 (05:59→21:25)
[2019-12-19] MEDS: cloNIDine 0.1 MG TAB PER TUBE SCH ×4 (05:59→23:03)
[2019-12-19] MEDS: traMADol HCl 50 MG TAB PO SCH ×4 (05:59→23:03)
[2019-12-19] MEDS: Acetaminophen 650 MG/20.3 ML UDCUP PER TUBE SCH ×4 (06:00→23:02)
[2019-12-19] MEDS: Polyethylene Glycol 3350 17 GM Packet PER TUBE SCH (07:26)
--- NOTE | 2019-12-19 08:04 | RAD ---
CHEST 1 VIEW: HISTORY: Pneumothorax. Chest tube. Comparison: 12/18/2019. FINDINGS: Lines and tubes: Stable incompletely evaluated Dobbhoff feeding tube, right-sided chest tube, right-s ided subclavian vascular catheter. Stable tracheostomy. Cardiac silhouette:Stable cardiac silhouette. Aorta: Unremarkable. Pulmonary vessels: Prominent. Costophrenic angles: Right greater than left pleural effusion. Lungs: Persistent scattered alveolar opacities. Pneumothorax: No definite right-sided pneumothorax. There is increased density in the right lung apex . Stable left-sided pneumothorax. Osseous abnormalities: Stable right rib fractures. IMPRESSION: 1. Right-sided chest tube without definite pneumothorax. 2. Stable left-sided pneumothorax. Transcribed Date/Time: 12/19/2019 8:18 AM
[2019-12-19] MEDS ORDERED: Polyethylene Glycol 3350 17 GM Packet PER TUBE PRN (09:39)
[2019-12-19] MEDS: Lidocaine 5% Patch TD SCH (10:11)
[2019-12-19] MEDS: Hydrochlorothiazide 25 MG TAB PO SCH (10:11)
[2019-12-19] MEDS: Ascorbic Acid 500 mg Chewable Tablet PO SCH ×2 (10:11→21:21)
[2019-12-19] MEDS: Saccharomyces boulardii 250 MG CAP PO SCH ×2 (10:11→21:24)
[2019-12-19] MEDS: Pregabalin 75 MG CAP PO SCH ×2 (10:12→21:24)
[2019-12-19] MEDS: AcetaZOLAMIDE 250 MG TAB PER TUBE SCH (10:12)
[2019-12-19] MEDS: Venlafaxine HCl 25 MG TAB PO SCH ×3 (10:12→21:25)
[2019-12-19] MEDS: Pantoprazole 40 MG VIAL IVP SCH (10:15)
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
[2019-12-19] MEDS: Fluconazole In NaCl,Iso-Osm 400 MG in Premix Bag 1 BAG IVPB SCH (12:16)
[2019-12-19 15:12] LABS: Vancomycin, Trough 24.1 ug/mL
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
[2019-12-19] MEDS: Vancomycin 1.5 GRAM/300 ML BAG 1.5 GM in Premix Bag 1 BAG IVPB SCH (17:52)
[2019-12-19] MEDS: Enoxaparin Sodium 40 MG/0.4 ML SYRINGE SC SCH (21:21)
[2019-12-19] MEDS: Melatonin 3 MG TAB PO SCH (21:24)
[2019-12-19] MEDS: Lidocaine Patch Removal TOP SCH (21:55)
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
[2019-12-20] MEDS: Vancomycin 1.5 GRAM/300 ML BAG 1.5 GM in Premix Bag 1 BAG IVPB SCH ×2 (02:19→10:49)
[2019-12-20 04:02] LABS: ALT (SGPT) 109 U/L (8-55); AST (SGOT) 61 U/L (5-34); Albumin 2.8 g/dL (3.5-5.0); Alkaline Phosphatase 257 U/L (40-110); Anion Gap 13 mmol/L (10-20); BUN (Urea Nitrogen) 20 mg/dL (8.9-20.6); Bilirubin, Total 0.4 mg/dL (0.2-1.2); Calc. Creatinine Clearance 221 mL/min (70-130); Calcium 8.7 mg/dL (7.8-10.44); Carbon Dioxide 24 mmol/L (22-29); Chloride 103 mmol/L (98-107); Estimated GFR-MDRD Greater than 90; Globulin 3.6 g/dL (2.4-3.5); Glucose 104 mg/dL (70-105); Potassium 3.4 mmol/L (3.5-5.1); Protein, Total 6.4 g/dL (6.0-8.3); Sodium 137 mmol/L (136-145)
[2019-12-20] MEDS: TAZOBACTAM IVPB SCH (04:15)
[2019-12-20] MEDS: CEFTOLOZANE IVPB SCH (04:15)
[2019-12-20] MEDS: SODIUM CHLORIDE IVPB SCH (04:15)
[2019-12-20] MEDS: Morphine 2 MG/ML VIAL SLOW IVP PRN (04:15)
[2019-12-20] MEDS: ADMIXTURE FEE IVPB SCH (04:15)
[2019-12-20] MEDS: Acetaminophen 650 MG/20.3 ML UDCUP PER TUBE SCH ×4 (06:05→23:35)
[2019-12-20] MEDS: cloNIDine 0.1 MG TAB PER TUBE SCH ×5 (06:05→23:41)
[2019-12-20] MEDS: Metoprolol Tartrate 25 MG TAB PER TUBE SCH ×4 (06:06→23:37)
[2019-12-20] MEDS: traMADol HCl 50 MG TAB PO SCH ×4 (06:06→23:36)
[2019-12-20] MEDS: Ibuprofen 100 MG/5 ML UDCUP PER TUBE SCH ×3 (06:06→21:42)
--- NOTE | 2019-12-20 08:29 | RAD ---
PORTABLE CHEST: INDICATION: Chest tube. CCU followup. COMPARISON: 12/19/2019. FINDINGS: Right chest tube with multiple right rib fractures. Right effusion and right basilar atelectasis or infiltrate. Fluid is seen in the periphery of the right lung and into the right apex. On the left side, there is left lower lobe infiltrate and small left effusion. Small left pneumothor ax which has been previously noted. NG tube and tracheostomy device unchanged. IMPRESSION: Stable chest finding. POS: AGW
[2019-12-20 08:54] LABS: Phosphorus 3.6 mg/dL (2.3-4.7)
[2019-12-20] MEDS ORDERED: Metamucil PACK PER TUBE SCH (09:00)
[2019-12-20] MEDS: ALPRAZolam 0.25 MG TAB PO PRN (10:12)
[2019-12-20] MEDS: Saccharomyces boulardii 250 MG CAP PO SCH ×2 (10:12→20:00)
[2019-12-20] MEDS: Pregabalin 75 MG CAP PO SCH ×2 (10:12→19:59)
[2019-12-20] MEDS: Ascorbic Acid 500 mg Chewable Tablet PO SCH ×2 (10:12→20:00)
[2019-12-20] MEDS: AcetaZOLAMIDE 250 MG TAB PER TUBE SCH (10:15)
[2019-12-20] MEDS: Hydrochlorothiazide 25 MG TAB PO SCH (10:16)
[2019-12-20] MEDS: Metamucil PACK PER TUBE SCH ×2 (10:17→20:03)
[2019-12-20] MEDS: Pantoprazole 40 MG VIAL IVP SCH (10:17)
[2019-12-20] MEDS: Lidocaine 5% Patch TD SCH (10:49)
[2019-12-20] MEDS: Venlafaxine HCl 25 MG TAB PO SCH ×3 (10:53→15:23)
[2019-12-20] MEDS ORDERED: traMADol HCl 50 MG TAB PO SCH ×2 (12:00→15:15)
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
[2019-12-20] MEDS ORDERED: Potassium Phosphate 30 MMOL, Magnesium Sulfate 4 GM in Sodium Chloride 0.9% 250 ML 250 ML IVPB SCH (13:15)
[2019-12-20] MEDS: Fluconazole In NaCl,Iso-Osm 400 MG in Premix Bag 1 BAG IVPB SCH (14:53)
[2019-12-20] MEDS ORDERED: SODIUM CHLORIDE IVPB SCH (16:00)
[2019-12-20] MEDS ORDERED: CEFTOLOZANE IVPB SCH (16:00)
[2019-12-20] MEDS ORDERED: TAZOBACTAM IVPB SCH (16:00)
[2019-12-20] MEDS ORDERED: ADMIXTURE FEE IVPB SCH (16:00)
[2019-12-20] MEDS: Melatonin 3 MG TAB PO SCH (19:59)
[2019-12-20] MEDS: Enoxaparin Sodium 40 MG/0.4 ML SYRINGE SC SCH (20:00)
[2019-12-20] MEDS: Lidocaine Patch Removal TOP SCH (21:30)
[2019-12-20] MEDS ORDERED: Sodium Chloride 0.9% 1,000 ML IV SCH (23:59)
--- NOTE | 2019-12-21 | PRG ---
DATE OF SERVICE: SUBJECTIVE: Patient was seen during evening rounds, resting comfortably, in no distress. Patient continues to tolerate trach collar. Patient's urinary output remains adequate for patient's age and weight. Patient continues to tolerate oral intake. PLAN: 1. Continue supportive care. 2. Continue and increase physical and occupational therapy. Encourage oral intake. The patient will be n.p.o. after midnight with plans to remove his temporary inferior vena cava filter. We will place patient on maintenance IV fluids normal saline at 100 mL an hour while patient is n.p.o. Job ID: [id number]
[2019-12-21] MEDS: Acetaminophen 650 MG/20.3 ML UDCUP PER TUBE SCH ×3 (05:18→17:06)
[2019-12-21] MEDS: cloNIDine 0.1 MG TAB PER TUBE SCH ×3 (05:18→17:04)
[2019-12-21] MEDS: traMADol HCl 50 MG TAB PO SCH ×3 (05:18→17:05)
[2019-12-21] MEDS: Metoprolol Tartrate 25 MG TAB PER TUBE SCH ×3 (05:19→17:07)
[2019-12-21] MEDS: Ibuprofen 100 MG/5 ML UDCUP PER TUBE SCH ×3 (05:19→22:04)
--- NOTE | 2019-12-21 08:25 | RAD ---
EXAM: XR Chest 1 View Portable PROVIDED CLINICAL HISTORY: Intubated, pulmonary contusions, aspiration. COMPARISON: 12/20/2019 FINDINGS: Endotracheal tube and nasogastric tube remain in place. Cardiac silhouette is magnified by projection . Pulmonary vasculature is within normal limits. Again noted is elevation of the right hemidiaphragm. Minimal patchy density seen at the medial right lung base which demonstrated findings on recent CT thorax on 12/20/2019 suggestive of pulmonary laceration and adjacent pulmonary contusion. Left lung is clear. No other interval change. IMPRESSION: 1. Patchy parenchymal opacity medial right lung base likely related to contusion given findings on re cent CT exam. 2. Endotracheal tube and nasogastric tubes remain in place.
[2019-12-21] MEDS: AcetaZOLAMIDE 250 MG TAB PER TUBE SCH (08:43)
[2019-12-21] MEDS: Ascorbic Acid 500 mg Chewable Tablet PO SCH ×2 (08:45→22:02)
[2019-12-21] MEDS: Saccharomyces boulardii 250 MG CAP PO SCH ×2 (08:45→22:04)
[2019-12-21] MEDS: Hydrochlorothiazide 25 MG TAB PO SCH (08:45)
[2019-12-21] MEDS: Pregabalin 75 MG CAP PO SCH ×2 (08:45→22:04)
[2019-12-21] MEDS: Venlafaxine HCl 25 MG TAB PO SCH ×3 (08:50→22:04)
[2019-12-21] MEDS: Lidocaine 5% Patch TD SCH (08:51)
[2019-12-21] MEDS ORDERED: Metamucil PACK PER TUBE SCH (09:00)
[2019-12-21] MEDS: Fluconazole In NaCl,Iso-Osm 400 MG in Premix Bag 1 BAG IVPB SCH (10:31)
[2019-12-21] MEDS ORDERED: Fentanyl 100 MCG/2 ML VIAL ONE (11:14)
[2019-12-21] MEDS ORDERED: Midazolam HCl 2 mg/2 ml Vial ONE ×2 (11:15→11:26)
--- NOTE | 2019-12-21 12:58 | OP ---
DATE OF PROCEDURE: 12/21/2019 PREOPERATIVE DIAGNOSIS: Need for removal of inferior vena cava filter. POSTOPERATIVE DIAGNOSIS: Need for removal of inferior vena cava filter. PROCEDURES PERFORMED: 1. Inferior vena cavogram. 2. Vena cava filter removal. ANESTHESIA: 1% lidocaine for local/3 mg Versed/75 mcg of fentanyl for IV sedation. TOTAL CONTRAST: 5 mL. TOTAL FLUORO TIME: 7.7 minutes. DESCRIPTION OF PROCEDURE: The patient was brought to the woven label designer and placed in supine position on woven label designer table. Appropriate central line and monitors were placed. IV sedation was begun. Groins were prepped and draped in the usual sterile fashion. Using ultrasound guidance, percutaneous access to the right common femoral vein was obtained. The cavogram sheath was passed into the vena cava. Vena cavogram was performed, showing no thrombus within the filter. The filter was tilted to the right. We used an angled Multipurpose catheter and snare. With manual pressure on the abdomen, we were able to get around the hook, which was facing caudad. Once the hook was snared, the removal sheath was then passed over the filter and the filter was removed. Manual pressure was held for hemostasis. The patient tolerated the procedure well and was transferred back to the intensive care unit in stable condition. Job ID: [id number]
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
[2019-12-21] MEDS ORDERED: Iopamidol 370 76% 50 ML VIAL FS ONE (14:50)
[2019-12-21] MEDS: Ferrous Sulfate 325 MG TAB PO SCH (16:23)
[2019-12-21] MEDS: Enoxaparin Sodium 40 MG/0.4 ML SYRINGE SC SCH (22:02)
[2019-12-21] MEDS: Melatonin 3 MG TAB PO SCH (22:03)
[2019-12-21] MEDS: Lidocaine Patch Removal TOP SCH (22:03)
[2019-12-22] MEDS: cloNIDine 0.1 MG TAB PER TUBE SCH ×4 (00:53→17:33)
[2019-12-22] MEDS: Acetaminophen 650 MG/20.3 ML UDCUP PER TUBE SCH ×2 (00:53→06:12)
[2019-12-22] MEDS: Metoprolol Tartrate 25 MG TAB PER TUBE SCH ×4 (00:53→17:35)
[2019-12-22] MEDS: traMADol HCl 50 MG TAB PO SCH ×4 (01:10→17:34)
[2019-12-22 04:11] LABS: ALT (SGPT) 55 U/L (8-55); AST (SGOT) 23 U/L (5-34); Albumin 2.8 g/dL (3.5-5.0); Alkaline Phosphatase 227 U/L (40-110); Anion Gap 12 mmol/L (10-20); BUN (Urea Nitrogen) 21 mg/dL (8.9-20.6); Bilirubin, Total 0.3 mg/dL (0.2-1.2); Calc. Creatinine Clearance 194 mL/min (70-130); Calcium 8.6 mg/dL (7.8-10.44); Carbon Dioxide 26 mmol/L (22-29); Chloride 104 mmol/L (98-107); Estimated GFR-MDRD Greater than 90; Globulin 3.5 g/dL (2.4-3.5); Glucose 141 mg/dL (70-105); Magnesium 1.8 mg/dL (1.6-2.6); Phosphorus 3.6 mg/dL (2.3-4.7); Potassium 3.7 mmol/L (3.5-5.1); Protein, Total 6.3 g/dL (6.0-8.3); Sodium 138 mmol/L (136-145)
[2019-12-22 05:08] LABS: Band 17 % (5-11); Eosinophils 5 % (0-10); Hemoglobin 10.4 g/dL (14.0-18.0); Lymphocytes 17 % (21-51); MDiff Complete? YES; Mean Corpuscular HGB CONC 32.6 g/dL (32.0-36.0); Mean Corpuscular Hemoglobin 30.7 pg (27.0-31.0); Mean Corpuscular Volume 94.3 fL (78.0-98.0); Mean Platelet Volume 7.5 fL (7.4-10.4); Monocytes 4 % (0-10); Neutrophil 57 % (42-75); Platelet Count 658 thou/uL (130-400); RBC Distribution Width 14.7 % (11.5-14.5); Red Blood Cell (RBC) Count 3.37 mill/uL (4.70-6.10); White Blood Cell (WBC) Count 13.8 thou/uL (4.8-10.8)
[2019-12-22] MEDS: Ibuprofen 100 MG/5 ML UDCUP PER TUBE SCH ×3 (06:13→21:41)
[2019-12-22] MEDS: Ferrous Sulfate 325 MG TAB PO SCH ×2 (07:50→16:41)
[2019-12-22] MEDS: Ascorbic Acid 500 mg Chewable Tablet PO SCH ×2 (08:54→21:39)
[2019-12-22] MEDS: Saccharomyces boulardii 250 MG CAP PO SCH ×2 (08:55→21:40)
[2019-12-22] MEDS: AcetaZOLAMIDE 250 MG TAB PER TUBE SCH (08:55)
[2019-12-22] MEDS: Hydrochlorothiazide 25 MG TAB PO SCH (08:55)
[2019-12-22] MEDS: Pregabalin 75 MG CAP PO SCH ×2 (08:55→21:39)
[2019-12-22] MEDS: Venlafaxine HCl 25 MG TAB PO SCH ×3 (08:56→21:40)
[2019-12-22] MEDS: Lidocaine 5% Patch TD SCH (08:58)
--- NOTE | 2019-12-22 09:09 | RAD ---
PORTABLE CHEST: HISTORY: CCU followup with chest tube. COMPARISON: 12/21/2019. FINDINGS: Right chest tube and right rib fractures are again noted. Bilateral effusions larger on the right. Fluid and air density in the right apex appears extrapleural. The findings are unchanged from yesterday. POS: OFF
[2019-12-22] MEDS ORDERED: Potassium Phosphate 15 MMOL in Sodium Chloride 0.9% 250 ML 250 ML IVPB SCH (10:00)
[2019-12-22] MEDS ORDERED: Magnesium 2 GM/50 ML 2 GM in Premix Bag 1 BAG IVPB SCH (10:00)
[2019-12-22] MEDS: Fluconazole In NaCl,Iso-Osm 400 MG in Premix Bag 1 BAG IVPB SCH (10:53)
[2019-12-22] MEDS: Acetaminophen 500 MG TAB PER TUBE SCH ×2 (11:58→17:35)
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
[2019-12-22] MEDS: Enoxaparin Sodium 40 MG/0.4 ML SYRINGE SC SCH (21:39)
[2019-12-22] MEDS: Melatonin 3 MG TAB PO SCH (21:39)
[2019-12-22] MEDS: Lidocaine Patch Removal TOP SCH (22:12)
[2019-12-22] MEDS: TAZOBACTAM IVPB SCH (22:30)
[2019-12-22] MEDS: ADMIXTURE FEE IVPB SCH (22:30)
[2019-12-22] MEDS: SODIUM CHLORIDE IVPB SCH (22:30)
[2019-12-22] MEDS: CEFTOLOZANE IVPB SCH (22:30)
[2019-12-23] MEDS: Acetaminophen 500 MG TAB PER TUBE SCH ×3 (00:45→11:57)
[2019-12-23] MEDS: cloNIDine 0.1 MG TAB PER TUBE SCH ×3 (00:47→11:56)
[2019-12-23] MEDS: traMADol HCl 50 MG TAB PO SCH ×4 (00:47→18:30)
[2019-12-23] MEDS: Metoprolol Tartrate 25 MG TAB PER TUBE SCH ×3 (00:47→11:57)
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
[2019-12-23] MEDS: Ibuprofen 100 MG/5 ML UDCUP PER TUBE SCH ×2 (05:02→15:30)
[2019-12-23] MEDS: Venlafaxine HCl 25 MG TAB PO SCH ×3 (09:12→22:00)
[2019-12-23] MEDS: Saccharomyces boulardii 250 MG CAP PO SCH ×2 (09:13→22:00)
[2019-12-23] MEDS: AcetaZOLAMIDE 250 MG TAB PER TUBE SCH (09:13)
[2019-12-23] MEDS: Hydrochlorothiazide 25 MG TAB PO SCH (09:13)
[2019-12-23] MEDS: Ferrous Sulfate 325 MG TAB PO SCH ×2 (09:14→18:29)
[2019-12-23] MEDS: Ascorbic Acid 500 mg Chewable Tablet PO SCH ×2 (09:14→22:00)
[2019-12-23] MEDS: Pregabalin 75 MG CAP PO SCH ×2 (09:14→22:00)
--- NOTE | 2019-12-23 10:25 | RAD ---
XR Chest 1 View Portable History: Chest tube Comparison: Radiograph prior day Findings: Right thoracostomy tube has been removed. Right rib fractures and layering effusion is pau lar. Left basilar lung aeration is improving. Tracheostomy has been removed. Impression: Removal of the right thoracostomy and tracheostomy with improved lung base aeration.
[2019-12-23] MEDS: Fluconazole In NaCl,Iso-Osm 400 MG in Premix Bag 1 BAG IVPB SCH (11:56)
[2019-12-23] MEDS: Lidocaine 5% Patch TD SCH (12:07)
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
[2019-12-23] MEDS ORDERED: Polyethylene Glycol 3350 17 GM Packet PO PRN (17:14)
[2019-12-23] MEDS: Acetaminophen 500 MG TAB PO SCH (18:28)
[2019-12-23] MEDS: Metoprolol Tartrate 25 MG TAB PO SCH (18:29)
[2019-12-23] MEDS: cloNIDine 0.1 MG TAB PO SCH (18:29)
[2019-12-23] MEDS: Enoxaparin Sodium 40 MG/0.4 ML SYRINGE SC SCH (22:00)
[2019-12-23] MEDS: Melatonin 3 MG TAB PO SCH (22:00)
[2019-12-23] MEDS: Lidocaine Patch Removal TOP SCH (22:00)
[2019-12-23] MEDS: Ibuprofen 100 MG/5 ML UDCUP PO SCH (22:10)
[2019-12-24] MEDS: traMADol HCl 50 MG TAB PO SCH ×4 (01:00→18:35)
[2019-12-24] MEDS: cloNIDine 0.1 MG TAB PO SCH ×4 (01:00→18:34)
[2019-12-24] MEDS: Metoprolol Tartrate 25 MG TAB PO SCH ×4 (01:00→18:35)
[2019-12-24] MEDS: Acetaminophen 500 MG TAB PO SCH ×4 (01:00→18:35)
[2019-12-24 05:55] LABS: Anion Gap 14 mmol/L (10-20); BUN (Urea Nitrogen) 27 mg/dL (8.9-20.6); Calc. Creatinine Clearance 184 mL/min (70-130); Calcium 9.6 mg/dL (7.8-10.44); Carbon Dioxide 27 mmol/L (22-29); Chloride 99 mmol/L (98-107); Estimated GFR-MDRD Greater than 90; Glucose 102 mg/dL (70-105); Magnesium 1.7 mg/dL (1.6-2.6); Phosphorus 4.4 mg/dL (2.3-4.7); Sodium 136 mmol/L (136-145)
[2019-12-24] MEDS: Ibuprofen 100 MG/5 ML UDCUP PO SCH ×3 (06:18→21:02)
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
[2019-12-24 07:29] LABS: Band 14 % (5-11); Eosinophils 3 % (0-10); Hemoglobin 11.3 g/dL (14.0-18.0); Lymphocytes 15 % (21-51); MDiff Complete? YES; Mean Corpuscular HGB CONC 31.7 g/dL (32.0-36.0); Mean Corpuscular Hemoglobin 29.2 pg (27.0-31.0); Mean Corpuscular Volume 92.2 fL (78.0-98.0); Mean Platelet Volume 7.4 fL (7.4-10.4); Monocytes 11 % (0-10); Myelocyte 6 % (0-0); Neutrophil 51 % (42-75); Platelet Count 610 thou/uL (130-400); RBC Distribution Width 14.5 % (11.5-14.5); Red Blood Cell (RBC) Count 3.86 mill/uL (4.70-6.10); White Blood Cell (WBC) Count 10.3 thou/uL (4.8-10.8)
[2019-12-24] MEDS ORDERED: Magnesium 2 GM/50 ML 2 GM in Premix Bag 1 BAG IVPB SCH (09:00)
[2019-12-24] MEDS: Ascorbic Acid 500 mg Chewable Tablet PO SCH ×2 (10:04→20:45)
[2019-12-24] MEDS: Venlafaxine HCl 25 MG TAB PO SCH ×3 (10:04→20:46)
[2019-12-24] MEDS: Hydrochlorothiazide 25 MG TAB PO SCH (10:04)
[2019-12-24] MEDS: Ferrous Sulfate 325 MG TAB PO SCH ×2 (10:04→18:34)
[2019-12-24] MEDS: Saccharomyces boulardii 250 MG CAP PO SCH ×2 (10:04→20:45)
[2019-12-24] MEDS: Pregabalin 75 MG CAP PO SCH ×2 (10:06→20:46)
[2019-12-24] MEDS: Lidocaine 5% Patch TD SCH (10:06)
[2019-12-24] MEDS: Fluconazole In NaCl,Iso-Osm 400 MG in Premix Bag 1 BAG IVPB SCH (11:53)
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
[2019-12-24] MEDS: Melatonin 3 MG TAB PO SCH (20:46)
[2019-12-24] MEDS: Enoxaparin Sodium 40 MG/0.4 ML SYRINGE SC SCH (20:46)
[2019-12-24] MEDS: Lidocaine Patch Removal TOP SCH (20:48)
[2019-12-25] MEDS: traMADol HCl 50 MG TAB PO SCH ×4 (00:20→18:41)
[2019-12-25] MEDS: Acetaminophen 500 MG TAB PO SCH ×4 (00:20→18:41)
[2019-12-25] MEDS: cloNIDine 0.1 MG TAB PO SCH ×4 (00:21→18:40)
[2019-12-25] MEDS: Metoprolol Tartrate 25 MG TAB PO SCH ×4 (00:21→18:42)
[2019-12-25 05:47] LABS: Anion Gap 15 mmol/L (10-20); BUN (Urea Nitrogen) 28 mg/dL (8.9-20.6); Calc. Creatinine Clearance 180 mL/min (70-130); Calcium 9.6 mg/dL (7.8-10.44); Carbon Dioxide 28 mmol/L (22-29); Chloride 96 mmol/L (98-107); Estimated GFR-MDRD Greater than 90; Glucose 102 mg/dL (70-105); Magnesium 1.6 mg/dL (1.6-2.6); Phosphorus 3.9 mg/dL (2.3-4.7); Potassium 4.6 mmol/L (3.5-5.1); Sodium 134 mmol/L (136-145)
[2019-12-25] MEDS: Ibuprofen 100 MG/5 ML UDCUP PO SCH ×3 (05:57→21:04)
--- NOTE | 2019-12-25 07:56 | RAD ---
EXAM: Single view of the chest HISTORY: Status post right chest tube removal. COMPARISON: 12/23/2019 FINDINGS: Single view of the chest shows a normal sized cardiomediastinal silhouette. There is biapi taz pleural thickening, right greater than left. No pneumothorax is seen. There is elevation the right hemidiaphragm. Atelectasis versus contusion is seen in the right lung base. Increased interstit ial lung markings are present. Multiple right-sided rib fractures are seen. IMPRESSION: Stable exam
[2019-12-25] MEDS ORDERED: Magnesium 2 GM/50 ML 2 GM in Premix Bag 1 BAG IVPB SCH (08:00)
[2019-12-25] MEDS: Pregabalin 75 MG CAP PO SCH ×2 (08:44→21:03)
[2019-12-25] MEDS: Ascorbic Acid 500 mg Chewable Tablet PO SCH ×2 (08:45→21:04)
[2019-12-25] MEDS: Hydrochlorothiazide 25 MG TAB PO SCH (08:46)
[2019-12-25] MEDS: Saccharomyces boulardii 250 MG CAP PO SCH ×2 (08:46→21:03)
[2019-12-25] MEDS: Venlafaxine HCl 25 MG TAB PO SCH ×3 (08:46→21:03)
[2019-12-25] MEDS: Ferrous Sulfate 325 MG TAB PO SCH ×2 (08:46→16:48)
[2019-12-25] MEDS: Lidocaine 5% Patch TD SCH (08:47)
[2019-12-25] MEDS: Fluconazole 100 MG TAB PO SCH (10:08)
[2019-12-25 10:45] VITALS: BMI 20.9
[2019-12-25] MEDS: Melatonin 3 MG TAB PO SCH (21:03)
[2019-12-25] MEDS: Enoxaparin Sodium 40 MG/0.4 ML SYRINGE SC SCH (21:03)
[2019-12-25] MEDS: Lidocaine Patch Removal TOP SCH (21:04)
[2019-12-26] MEDS: Acetaminophen 500 MG TAB PO SCH ×5 (00:14→23:39)
[2019-12-26] MEDS: traMADol HCl 50 MG TAB PO SCH ×5 (00:14→23:40)
[2019-12-26] MEDS: cloNIDine 0.1 MG TAB PO SCH ×5 (00:14→23:39)
[2019-12-26] MEDS: Metoprolol Tartrate 25 MG TAB PO SCH ×5 (00:14→23:39)
[2019-12-26] MEDS: Ibuprofen 100 MG/5 ML UDCUP PO SCH ×3 (06:12→21:01)
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
[2019-12-26] MEDS: Pregabalin 75 MG CAP PO SCH ×2 (08:52→20:58)
[2019-12-26] MEDS: Venlafaxine HCl 25 MG TAB PO SCH ×3 (08:54→20:58)
[2019-12-26] MEDS: Fluconazole 100 MG TAB PO SCH (08:54)
[2019-12-26] MEDS: Ascorbic Acid 500 mg Chewable Tablet PO SCH ×2 (08:55→20:58)
[2019-12-26] MEDS: Hydrochlorothiazide 25 MG TAB PO SCH (08:56)
[2019-12-26] MEDS: Saccharomyces boulardii 250 MG CAP PO SCH ×2 (08:56→20:58)
[2019-12-26] MEDS: Ferrous Sulfate 325 MG TAB PO SCH ×2 (08:57→17:34)
[2019-12-26] MEDS: Lidocaine 5% Patch TD SCH (09:01)
[2019-12-26] MEDS ORDERED: Albuterol 200 PUFF (6.7GM INHALER) INH PRN (14:30)
[2019-12-26] MEDS: Albuterol 200 PUFF (6.7GM INHALER) INH SCH ×2 (19:25→19:33)
[2019-12-26] MEDS: Enoxaparin Sodium 40 MG/0.4 ML SYRINGE SC SCH (20:57)
[2019-12-26] MEDS: Melatonin 3 MG TAB PO SCH (20:58)
[2019-12-26] MEDS: Lidocaine Patch Removal TOP SCH (20:58)
[2019-12-27] MEDS: Ibuprofen 100 MG/5 ML UDCUP PO SCH ×3 (05:12→21:22)
[2019-12-27] MEDS: Metoprolol Tartrate 25 MG TAB PO SCH ×4 (05:13→23:44)
[2019-12-27] MEDS: cloNIDine 0.1 MG TAB PO SCH ×4 (05:13→23:44)
[2019-12-27] MEDS: Acetaminophen 500 MG TAB PO SCH ×4 (05:13→23:43)
[2019-12-27] MEDS: traMADol HCl 50 MG TAB PO SCH ×4 (05:14→23:43)
[2019-12-27] MEDS: Albuterol 200 PUFF (6.7GM INHALER) INH SCH ×4 (07:41→20:16)
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
[2019-12-27 08:41] LABS: #Basophils 0.1 thou/uL (0.0-0.2); #Eosinphils 0.1 thou/uL (0.0-0.7); #Lymphocytes 1.5 thou/uL (1.20-3.40); #Monocytes 0.7 thou/uL (0.11-0.59); #Neutrophils 6.4 thou/uL (1.40-6.50); %Eosinophils 1.2 % (0.0-10.0); %Lymphocytes 17.1 % (21.0-51.0); %Neutrophils 72.6 % (42.0-75.0); Hemoglobin 12.3 g/dL (14.0-18.0); Mean Corpuscular HGB CONC 31.6 g/dL (32.0-36.0); Mean Corpuscular Hemoglobin 29.4 pg (27.0-31.0); Mean Platelet Volume 7.9 fL (7.4-10.4); Platelet Count 404 thou/uL (130-400); RBC Distribution Width 14.4 % (11.5-14.5); Red Blood Cell (RBC) Count 4.17 mill/uL (4.70-6.10); White Blood Cell (WBC) Count 8.8 thou/uL (4.8-10.8)
[2019-12-27 08:58] LABS: Phosphorus 4.1 mg/dL (2.3-4.7)
[2019-12-27 09:58] LABS: Anion Gap 16 mmol/L (10-20); BUN (Urea Nitrogen) 29 mg/dL (8.9-20.6); Calc. Creatinine Clearance 205 mL/min (70-130); Calcium 9.7 mg/dL (7.8-10.44); Carbon Dioxide 29 mmol/L (22-29); Chloride 96 mmol/L (98-107); Estimated GFR-MDRD Greater than 90; Glucose 91 mg/dL (70-105); Magnesium 1.6 mg/dL (1.6-2.6); Potassium 4.1 mmol/L (3.5-5.1); Sodium 137 mmol/L (136-145)
[2019-12-27] MEDS: Ferrous Sulfate 325 MG TAB PO SCH ×2 (10:01→18:32)
[2019-12-27] MEDS: Ascorbic Acid 500 mg Chewable Tablet PO SCH ×2 (10:02→21:21)
[2019-12-27] MEDS: Fluconazole 100 MG TAB PO SCH (10:02)
[2019-12-27] MEDS: Hydrochlorothiazide 25 MG TAB PO SCH (10:03)
[2019-12-27] MEDS: Lidocaine 5% Patch TD SCH (10:03)
[2019-12-27] MEDS: Pregabalin 75 MG CAP PO SCH ×2 (10:03→21:21)
[2019-12-27] MEDS: Venlafaxine HCl 25 MG TAB PO SCH ×3 (10:04→21:21)
[2019-12-27] MEDS: Saccharomyces boulardii 250 MG CAP PO SCH ×2 (10:04→21:21)
[2019-12-27 10:35] LABS: SARS-CoV-2 MS2 Positive; SARS-CoV-2 N Gene Negative; SARS-CoV-2 S Gene Negative; SARS-CoV-2 by NAA Not Detected (NotDetected); SARS-CoV-2 orf1ab Negative
[2019-12-27] MEDS ORDERED: Scopolamine 1.5 mg/72 hour Patch TD SCH (11:00)
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
[2019-12-27] MEDS: Melatonin 3 MG TAB PO SCH (21:21)
[2019-12-27] MEDS: Enoxaparin Sodium 40 MG/0.4 ML SYRINGE SC SCH (21:22)
[2019-12-27] MEDS: Lidocaine Patch Removal TOP SCH (21:23)
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
[2019-12-28] MEDS: Acetaminophen 500 MG TAB PO SCH ×3 (06:24→17:36)
[2019-12-28] MEDS: traMADol HCl 50 MG TAB PO SCH ×3 (06:25→17:37)
[2019-12-28] MEDS: Ibuprofen 100 MG/5 ML UDCUP PO SCH ×2 (06:26→13:14)
[2019-12-28] MEDS: Metoprolol Tartrate 25 MG TAB PO SCH ×3 (06:26→17:37)
[2019-12-28] MEDS: cloNIDine 0.1 MG TAB PO SCH ×3 (06:26→17:37)
[2019-12-28] MEDS: Albuterol 200 PUFF (6.7GM INHALER) INH SCH ×4 (07:03→19:11)
[2019-12-28] MEDS: Fluconazole 100 MG TAB PO SCH (09:09)
[2019-12-28] MEDS: Hydrochlorothiazide 25 MG TAB PO SCH (09:09)
[2019-12-28] MEDS: Venlafaxine HCl 25 MG TAB PO SCH ×2 (09:09→13:14)
[2019-12-28] MEDS: Saccharomyces boulardii 250 MG CAP PO SCH (09:10)
[2019-12-28] MEDS: Pregabalin 75 MG CAP PO SCH (09:10)
[2019-12-28] MEDS: Lidocaine 5% Patch TD SCH (09:12)
[2019-12-28] MEDS: Ascorbic Acid 500 mg Chewable Tablet PO SCH (09:12)
[2019-12-28] MEDS: Ferrous Sulfate 325 MG TAB PO SCH ×2 (09:13→17:37)
[2019-12-28 20:30] VITALS: BP 104/71; TEMP 97.8
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
== END 2019-12-28 20:00 | DRG 3 ==
LOC: ERS 08:46 → SDC 09:40 → CCU 09:45 → SURG A 12-13 15:56 → IMCU/EMU 12-14 12:31 → CCU 12-14 14:15 → SURG B 12-23 13:46
PROVIDERS: ADMIT Surgery; ATTEND Surgery
PROC: 0WJG0ZZ Inspection of Peritoneal Cavity, Open Approach (ICD-10-PCS; 2019-11-24)
PROC: 5A1955Z Respiratory Ventilation, Greater than 96 Consecutive Hours (ICD-10-PCS; 2019-11-24)
PROC: 0QS804Z Reposition Right Femoral Shaft with Internal Fixation Device, Open Approach (ICD-10-PCS; 2019-11-24)
PROC: 0YQG0ZZ Repair Left Knee Region, Open Approach (ICD-10-PCS; 2019-11-24)
PROC: 0BBF0ZZ Excision of Right Lower Lung Lobe, Open Approach (ICD-10-PCS; 2019-11-24)
PROC: 0BBD0ZZ Excision of Right Middle Lung Lobe, Open Approach (ICD-10-PCS; 2019-11-24)
PROC: 05QY0ZZ Repair Upper Vein, Open Approach (ICD-10-PCS; 2019-11-24)
PROC: 04HY32Z Insertion of Monitoring Device into Lower Artery, Percutaneous Approach (ICD-10-PCS; 2019-11-24)
PROC: 02HV33Z Insertion of Infusion Device into Superior Vena Cava, Percutaneous Approach (ICD-10-PCS; 2019-11-24)
PROC: 05H433Z Insertion of Infusion Device into Left Innominate Vein, Percutaneous Approach (ICD-10-PCS; 2019-11-24)
PROC: 0W9B30Z Drainage of Left Pleural Cavity with Drainage Device, Percutaneous Approach (ICD-10-PCS; 2019-11-24)
PROC: 30233L1 Transfusion of Nonautologous Fresh Plasma into Peripheral Vein, Percutaneous Approach (ICD-10-PCS; 2019-11-24)
PROC: 30233N1 Transfusion of Nonautologous Red Blood Cells into Peripheral Vein, Percutaneous Approach (ICD-10-PCS; 2019-11-24)
PROC: 30233R1 Transfusion of Nonautologous Platelets into Peripheral Vein, Percutaneous Approach (ICD-10-PCS; 2019-11-24)
PROC: 30233M1 Transfusion of Nonautologous Plasma Cryoprecipitate into Peripheral Vein, Percutaneous Approach (ICD-10-PCS; 2019-11-24)
PROC: 30233K1 Transfusion of Nonautologous Frozen Plasma into Peripheral Vein, Percutaneous Approach (ICD-10-PCS; 2019-11-24)
PROC: 06H03DZ Insertion of Intraluminal Device into Inferior Vena Cava, Percutaneous Approach (ICD-10-PCS; 2019-11-27)
PROC: 0B9J7ZX Drainage of Left Lower Lung Lobe, Via Natural or Artificial Opening, Diagnostic (ICD-10-PCS; 2019-11-27)
PROC: 0B9G7ZX Drainage of Left Upper Lung Lobe, Via Natural or Artificial Opening, Diagnostic (ICD-10-PCS; 2019-11-27)
PROC: 0B9D7ZX Drainage of Right Middle Lung Lobe, Via Natural or Artificial Opening, Diagnostic (ICD-10-PCS; 2019-11-27)
PROC: 0B9J8ZZ Drainage of Left Lower Lung Lobe, Via Natural or Artificial Opening Endoscopic (ICD-10-PCS; 2019-11-29)
PROC: 0B9C8ZZ Drainage of Right Upper Lung Lobe, Via Natural or Artificial Opening Endoscopic (ICD-10-PCS; 2019-11-29)
PROC: 0B9G8ZZ Drainage of Left Upper Lung Lobe, Via Natural or Artificial Opening Endoscopic (ICD-10-PCS; 2019-11-29)
PROC: 0WJG0ZZ Inspection of Peritoneal Cavity, Open Approach (ICD-10-PCS; 2019-12-01)
PROC: 0BC48ZZ Extirpation of Matter from Right Upper Lobe Bronchus, Via Natural or Artificial Opening Endoscopic (ICD-10-PCS; 2019-12-03)
PROC: 0B9J8ZX Drainage of Left Lower Lung Lobe, Via Natural or Artificial Opening Endoscopic, Diagnostic (ICD-10-PCS; 2019-12-03)
PROC: 0B9C8ZX Drainage of Right Upper Lung Lobe, Via Natural or Artificial Opening Endoscopic, Diagnostic (ICD-10-PCS; 2019-12-03)
PROC: 0B9G8ZX Drainage of Left Upper Lung Lobe, Via Natural or Artificial Opening Endoscopic, Diagnostic (ICD-10-PCS; 2019-12-03)
PROC: 0B113F4 Bypass Trachea to Cutaneous with Tracheostomy Device, Percutaneous Approach (ICD-10-PCS; principal; 2019-12-04)
PROC: 0B9J7ZX Drainage of Left Lower Lung Lobe, Via Natural or Artificial Opening, Diagnostic (ICD-10-PCS; 2019-12-04)
PROC: 0B9C7ZX Drainage of Right Upper Lung Lobe, Via Natural or Artificial Opening, Diagnostic (ICD-10-PCS; 2019-12-04)
PROC: 0B9G7ZX Drainage of Left Upper Lung Lobe, Via Natural or Artificial Opening, Diagnostic (ICD-10-PCS; 2019-12-04)
PROC: 0B9D7ZX Drainage of Right Middle Lung Lobe, Via Natural or Artificial Opening, Diagnostic (ICD-10-PCS; 2019-12-04)
PROC: 0PSF04Z Reposition Right Humeral Shaft with Internal Fixation Device, Open Approach (ICD-10-PCS; 2019-12-05)
PROC: 0QS806Z Reposition Right Femoral Shaft with Intramedullary Internal Fixation Device, Open Approach (ICD-10-PCS; 2019-12-05)
PROC: 0B9J7ZX Drainage of Left Lower Lung Lobe, Via Natural or Artificial Opening, Diagnostic (ICD-10-PCS; 2019-12-10)
PROC: 0B9C7ZX Drainage of Right Upper Lung Lobe, Via Natural or Artificial Opening, Diagnostic (ICD-10-PCS; 2019-12-10)
PROC: 0B9G7ZX Drainage of Left Upper Lung Lobe, Via Natural or Artificial Opening, Diagnostic (ICD-10-PCS; 2019-12-10)
PROC: 06PY3DZ Removal of Intraluminal Device from Lower Vein, Percutaneous Approach (ICD-10-PCS; 2019-12-21)
DX: S06.4X9A Epidural hemorrhage with loss of consciousness of unspecified duration, initial encounter (principal); S27.2XXA Traumatic hemopneumothorax, initial encounter; I46.9 Cardiac arrest, cause unspecified; S42.301B Unspecified fracture of shaft of humerus, right arm, initial encounter for open fracture; S72.91XB Unspecified fracture of right femur, initial encounter for open fracture type I or II; T79.4XXA Traumatic shock, initial encounter; J96.00 Acute respiratory failure, unspecified whether with hypoxia or hypercapnia; S25.4 Injury of pulmonary blood vessels; D65 Disseminated intravascular coagulation [defibrination syndrome]; S22.41XA Multiple fractures of ribs, right side, initial encounter for closed fracture; S36.113A Laceration of liver, unspecified degree, initial encounter; D62 Acute posthemorrhagic anemia; N17.9 Acute kidney failure, unspecified; N39.0 Urinary tract infection, site not specified; E87.2 Acidosis; E87.0 Hyperosmolality and hypernatremia; J95.851 Ventilator associated pneumonia; I82.623 Acute embolism and thrombosis of deep veins of upper extremity, bilateral; S42.001A Fracture of unspecified part of right clavicle, initial encounter for closed fracture; I95.89 Other hypotension; S01.91XA Laceration without foreign body of unspecified part of head, initial encounter; T79.6XXA Traumatic ischemia of muscle, initial encounter; F41.9 Anxiety disorder, unspecified; S81.012A Laceration without foreign body, left knee, initial encounter; J45.909 Unspecified asthma, uncomplicated; E87.5 Hyperkalemia; D72.829 Elevated white blood cell count, unspecified; E83.51 Hypocalcemia; E83.39 Other disorders of phosphorus metabolism; D69.6 Thrombocytopenia, unspecified; R73.9 Hyperglycemia, unspecified; J98.2 Interstitial emphysema; E87.6 Hypokalemia; E83.42 Hypomagnesemia; R53.81 Other malaise; Z88.8 Allergy status to other drugs, medicaments and biological substances; Z88.6 Allergy status to analgesic agent; Z20.828 Contact with and (suspected) exposure to other viral communicable diseases
CPT/HCPCS: 27502; 29105; 31624; 32551; 36415; 36416; 36430; 36569; 36620; 37191; 37193; 51702; 70450; 70544; 70553; 71045; 71260; 71275; 72125; 72141; 72170; 74018; 74177; 75635; 76000; 76770; 76942; 77002; 80048; 80053; 80076; 80202; 81001; 82140; 82533; 82550; 82553; 82805; 83519; 83605; 83735; 83930; 84100; 84134; 84443; 84484; 85007; 85025; 85027; 85049; 85060; 85300; 85362; 85379; 85384; 85610; 85730; 86140; 86850; 86870; 86900; 86901; 86922; 87040; 87070; 87077; 87086; 87186; 87205; 87635; 88305; 89220; 90471; 90715; 92950; 93306; 93970; 94002; 94003; 94640; 95712; 95816; 95819; 96374; 96375; 96376; 99152; A4217; A9579; C1713; C9113; G0390; J0171; J0690; J0695; J1100; J1120; J1170; J1450; J1644; J1650; J1720; J1815; J1885; J1940; J1956; J2001; J2060; J2185; J2248; J2250; J2270; J2370; J2405; J2543; J2704; J2765; J2920; J2930; J3010; J3260; J3370; J3430; J3475; J3490; J7030; J7050; J7608; J7614; J7620; L1832; P9012; P9016; P9035; P9045; P9047; P9048; P9059; Q9967; S0028; U0003